=== PATIENT | female | born 1935 | race Caucasian/White ===

== ENCOUNTER 2016-08-10 12:41 | Inpatient (IN) | payer MEDICARE, MEDICAID ==
[2016-08-10 12:41] VITALS: BMI 27.8
[2016-08-10] MEDS ORDERED: Oxycodone/Acetaminophen 5/325 mg Tab PO STA (13:37)
--- NOTE | 2016-08-10 13:37 | C.PDOC ---
History Of Present Illness Patient is a 81 y/o female, whose past medical history includes, CAD, peripheral vascular disease, stent placed in the left leg last year, that presents to the emergency department for evaluation of constant pain to the plantar aspect of right foot since the last week. Pt describes the pain as a burning sensation, and states pain is worse with walking, and better when elevating the leg. Otherwise, denies any swelling, extremity weakness/numbness, chest pain, shortness of breath, fever, chills, or any other associated symptoms at this time. Time Seen by Provider: 08/10/16 13:18 Chief Complaint (Nursing): Lower Extremity Problem/Injury History Per: Patient History/Exam Limitations: no limitations Onset/Duration Of Symptoms: Days (1 week) Current Symptoms Are (Timing): Still Present Recent travel outside of the [place]: No Past Medical History Reviewed: Historical Data, Nursing Documentation, Vital Signs Vital Signs: Last Vital Signs Temp 98.3 F 08/10/16 12:44 Pulse 61 08/10/16 12:44 Resp 18 08/10/16 12:44 BP 160/73 H 08/10/16 12:44 Pulse Ox 97 08/10/16 14:28 - Medical History PMH: Arthritis, Asthma, Gastritis, HTN, Hypercholesterolemia, Osteoporosis, End Stage Renal Disease Denies: Chronic Kidney Disease - [facility] Procedures DESTRUCTION OF ASCENDING COLON, ENDO (01/19/16) DESTRUCTION OF DUODENUM, ENDO (01/19/16) DILATION OF RIGHT POSTERIOR TIBIAL ARTERY, PERC APPROACH (04/18/15) EXCISION OF CECUM, ENDO (06/29/15) EXCISION OF STOMACH, ENDO, DIAGN (06/29/15) EXCISION OF TRANSVERSE COLON, ENDO, DIAGN (06/29/15) INSERTION OF INFUSION DEV INTO SUP VENA CAVA, PERC APPROACH (06/29/15) INTRODUCE OF OTH THROMBOLYTIC INTO PERIPH ART, PERC APPROACH (04/18/15) PLAIN RADIOGRAPHY OF AORTA, BI LE ART USING L OSM CONTRAST (04/18/15) TRANSFUSE NONAUT FROZEN PLASMA IN PERIPH VEIN, PERC (01/19/16) TRANSFUSE NONAUT PLATELETS IN PERIPH VEIN, PERC (01/19/16) TRANSFUSE NONAUT RED BLOOD CELLS IN PERIPH VEIN, PERC (01/19/16) ULTRASONOGRAPHY OF FEMORAL ARTERY (04/18/15) Family History: States: Unknown Family Hx - Social History Hx Tobacco Use: No Hx Alcohol Use: No Hx Substance Use: No - Immunization History Hx Influenza Vaccination: Yes (03/2016) Hx Pneumococcal Vaccination: No Review Of Systems Except As Marked, All Systems Reviewed And Found Negative. Constitutional: Negative for: Fever, Chills Cardiovascular: Negative for: Chest Pain, Palpitations Respiratory: Negative for: Cough, Shortness of Breath Musculoskeletal: Positive for: Foot Pain (right) Neurological: Negative for: Weakness, Numbness, Headache, Dizziness Physical Exam - Physical Exam Appears: Non-toxic, No Acute Distress Skin: Warm, Dry, Other (erythema to right foot) Head: Atraumatic, Normacephalic Eye(s): bilateral: Normal Inspection, EOMI Neck: Normal ROM, Supple Chest: Symmetrical, No Tenderness Cardiovascular: Rhythm Regular, No Murmur Respiratory: Normal Breath Sounds, No Rales, No Rhonchi, No Wheezing Gastrointestinal/Abdominal: Soft, No Tenderness Extremity: Normal ROM, Tenderness (plantar aspect of right foot), No Pedal Edema , No Calf Tenderness, Capillary Refill (6 seconds), No Deformity, No Swelling Pulses: Left Femoral: Normal, Right Femoral: Normal, Left Dorsalis Pedis: Absent , Right Dorsalis Pedis: Absent Neurological/Psych: Oriented x3, Normal Speech, Normal Motor, Normal Sensation ED Course And Treatment - Laboratory Results Result Diagrams: 08/10/16 13:54 08/10/16 14:49 Lab Interpretation: Abnormal (New onset renal insufficiency BUN 50 Cr 2.7.) O2 Sat by Pulse Oximetry: 97 (on RA) Pulse Ox Interpretation: Normal Progress Note: Labs ordered and reviewed. Patient was given Percocet in the ER. On re-eval, pt reports improvement of symptoms. Venous doppler shows audible pulses both dorsalis pedis, left greater than right. Reevaluation Time: 15:41 Reassessment Condition: Improved (after Percocet) - Physician Consult Information Physician Contacted: Ayala Lawrence Disposition - Disposition Disposition: HOSPITALIZED Disposition Time: 15:42 Condition: IMPROVED - POA Present On Arrival: None - Clinical Impression Clinical Impression: Peripheral vascular disease, Acute renal insufficiency - Scribe Statement The provider has reviewed the documentation as recorded by the Devin Villalba Provider Attestation: All medical record entries made by the Devin were at my direction and personally dictated by me. I have reviewed the chart and agree that the record accurately reflects my personal performance of the history, physical exam, medical decision making, and the department course for this patient. I have also personally directed, reviewed, and agree with the discharge instructions and disposition.
[2016-08-10] MEDS ORDERED: Oxycodone/Acetaminophen 5/325 mg Tab ONE (14:02)
[2016-08-10 14:04] LABS: BASO # 0.1 K/uL (0.0-0.2); BASO % 0.9 % (0.0-2.0); EOS % 11.3 % (0.0-4.0); HEMATOCRIT 36.3 % (34.0-47.0); LYMPH # 0.9 K/uL (1.0-4.3); LYMPH % 10.8 % (20.0-40.0); MEAN CORPUSCULAR HEMOGLOBIN 29.4 pg (27.0-31.0); MEAN CORPUSCULAR HGB CONC 32.6 g/dL (33.0-37.0); MEAN PLATELET VOLUME 7.8 fL (7.2-11.7); MONO # 1.2 K/uL (0.0-0.8); MONO % 13.8 % (0.0-10.0); RED CELL DISTRIBUTION WIDTH 16.7 % (11.5-14.5); WHITE BLOOD COUNT 8.5 K/uL (4.8-10.8)
[2016-08-10 15:02] LABS: POTASSIUM 4.6 mmol/L (3.6-5.2)
[2016-08-10 15:04] LABS: BILIRUBIN,TOTAL 0.5 mg/dL (0.2-1.3); TOTAL PROTEIN 7.4 g/dL (6.3-8.3)
[2016-08-10 15:05] LABS: CALCIUM 8.6 mg/dl (8.6-10.4)
--- NOTE | 2016-08-10 16:34 | CP.PCM.HP ---
<Rosio Turner - Last Filed: 08/10/16 17:53> History of Present Illness - History of Present Illness History of Present Illness: Medicine Note for Dr. Lawrence, CC: right leg pain HPI: 81F with PMHx of DM2, hyperlipidemia, PAD, PVD, HTN, anemia and gastritis presents to the ED with right leg pain x 1 week. As per the son, patient has been having right leg pain intermittently for the past year or so, however the past few weeks the pain has become unbearable. The right foot is cool to touch, painful and she feels her right foot pulsating. Patient ambulates with assistance but has unable to do so the last few days due to the pain. Denied fever, chills, headache, chest pain, abdominal pain, n/v/d/c, or urinary symptoms. PMHx: DM2, hyperlipidemia, PAD, PVD, HTN, anemia and gastritis PSHx: right posterior tibial artery balloon angioplasty, left corneal transplant 2014, cardiac stents Meds: As per MAR All: unknown antibiotic SHx: smoked for 10 years, quit 40 years ago, denies ETOH use, denies illicit drug use FHx: PMD: Dr. Nicole Present on Admission - Present on Admission Any Indicators Present on Admission: No Past Patient History - Infectious Disease Hx of Infectious Diseases: None - Tetanus Immunizations Tetanus Immunization: Unknown - Past Medical History & Family History Past Medical History?: Yes - Past Social History Smoking Status: Never Smoked - CARDIAC Hx Hypercholesterolemia: Yes Hx Hypertension: Yes - PULMONARY Hx Asthma: Yes - NEUROLOGICAL Hx Neurological Disorder: No Other/Comment: according to son, pt is gorgetful, has to be reminded constantly - HEENT Hx HEENT Problems: Yes Hx Blind: Yes Other/Comment: [employer]. 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 - RENAL Hx Chronic Kidney Disease: No - ENDOCRINE/METABOLIC Hx Diabetes Mellitus Type 2: Yes - HEMATOLOGICAL/ONCOLOGICAL Hx Blood Disorders: Yes Hx Blood Transfusions: Yes Hx Blood Transfusion Reaction: No - INTEGUMENTARY Hx Dermatological Problems: No - MUSCULOSKELETAL/RHEUMATOLOGICAL Hx Arthritis: Yes Hx Osteoporosis: Yes - GASTROINTESTINAL Hx Gastritis: Yes - GENITOURINARY/GYNECOLOGICAL Hx Genitourinary Disorders: No Other/Comment: s/p hysterectomy as per son done >20 yrs ago - PSYCHIATRIC Hx Substance Use: No - SURGICAL HISTORY Hx Surgeries: Yes Hx Eye Surgery: Yes (Left corneal transplant) Hx Femoral-Popliteal Bypass Graft: Yes Other/Comment: [employer] 02/05/15 - ANESTHESIA Hx Anesthesia: Yes Hx Anesthesia Reactions: No Meds Allergies/Adverse Reactions: Allergies Allergy/AdvReac Type Severity Reaction Status Date / Time unknown abx AdvReac Mild RASH Uncoded 07/01/16 08:11 Physical Exam - Constitutional Appears: No Acute Distress - Head Exam Head Exam: NORMAL INSPECTION, NORMOCEPHALIC - Respiratory Exam Respiratory Exam: Clear to Auscultation Bilateral, NORMAL BREATHING PATTERN. absent: Wheezes - Cardiovascular Exam Cardiovascular Exam: REGULAR RHYTHM, RRR, +S1, +S2 - GI/Abdominal Exam GI & Abdominal Exam: Normal Bowel Sounds, Soft. absent: Distended, Tenderness - Extremities Exam Additional comments: right foot, cool to touch, PVD, varicose veins noted, red swollen, painful to touch, DP felt but very faintly left foot +2 DP, warm to touch - Neurological Exam Neurological exam: Alert, Oriented x3 - Skin Skin Exam: Dry, Intact, Normal Color, Warm Results - Vital Signs Recent Vital Signs: Last Vital Signs Temp 97.7 F 08/10/16 16:22 Pulse 98 H 08/10/16 16:22 Resp 18 08/10/16 16:22 BP 138/66 08/10/16 16:22 Pulse Ox 97 08/10/16 16:22 - Labs Result Diagrams: 08/10/16 13:54 08/10/16 14:49 Assessment & Plan - Assessment and Plan (Free Text) Assessment: 81F with PMHx of DM2, hyperlipidemia, PAD, PVD, HTN, anemia and gastritis presents to the ED with right leg pain x 1 week. Plan: PAD * Right foot is cool to touch, DP poorly felt, audible on doppler, Femoral pulses +2 Bilaterally * Cardiology consulted: Dr. Piña- help appreciated PVD * Restarted Cilostazol 100mg PO TID CAD * DARA placed 2015 * ASA 81mg PO daily * Cardiology recommending ASA 81 and cilastazol only, with notation that GI bleed (01/2016) started soon after patient initiated on plavix. Acute Renal Failure, CKD Stage 3 * Hx of CKD Stage 3 * Baseline creatine 1.6/1.7 with GFR 31 * On admission BUN/ CRE: 850/2.7, GFR 17 * Nephrology consulted, Dr. Alberto- help appreciated * NS @75 cc/hr started * Cross inserted * Strict Is & Os * F/U Renal US HTN * Resumed home medications: Hydralazine 100mg PO TID, Cozaar 50mg PO daily, Held Nifedipine 30mg ER PO daily and held Metoprolol 50mg PO BID * Monitor Hx DM * HgA1C 6.5 10/2015 * F/U HgA1C Hx HLD * F/U lipid panel Prophylactic Measures * GI PPX: Protonix 40mg PO daily * DVT PPX: Contraindications to SCDs due to PAD * Heart Healthy Diet * PT Rell Lawrence, Johnny VEGA, PGY-1 <Ayala Lawrence V - Last Filed: 08/10/16 21:49> Results - Vital Signs Recent Vital Signs: Last Vital Signs Temp 97.9 F 08/10/16 17:19 Pulse 58 L 08/10/16 17:19 Resp 20 08/10/16 17:19 BP 164/70 H 08/10/16 17:19 Pulse Ox 96 08/10/16 17:19 - Labs Result Diagrams: 08/10/16 13:54 08/10/16 14:49 Attending/Attestation - Attestation I have personally seen and examined this patient.: Yes I have fully participated in the care of the patient.: Yes I have reviewed all pertinent clinical information: Yes Notes (Text): Patient seen, examined and case discussed with day-time resident. Patient's family members at bedside. Patient had received one dose of Percocet prior to my arrival, but patient is arousable and speaks softly. Per family, patient was brought in the hospital because of bilateral leg pains. Patient has known history of peripheral arterial disease of the lower extremity. Per discussion with ED doc, difficult to palpate DP pulses, but present with doppler. Prior AVR/SEG (10/22/15), notes decreased moderately perfusion of the right and left lower extremities. Patient noted to have acute on chronic renal insufficiency (GFR:20-30s); patient clinically appears dry and previously on diuretics. Note: family history not applicable Patient seen with resident, patient detect sensation bilateral lower feet, unable palpate discrete DP pulses, associated chronic skin changes, and poor nail hygiene Assessment/Plan 1. Peripheral vascular disease * Ordered for arterial dopplers * Continue ASA, Cilostazol 100mg PO TID * Consult: Dr. Piña (cardiology) on board * prior balloon angioplasty in 2016 noted per review of EMR 2. History of CAD * ASA 81mg PO daily * GI bleeding associated with prior Plavix use per EMR 3. Acute Renal Failure, CKD Stage 3 * Hx of CKD Stage 3 * Baseline creatine 1.6/1.7 with GFR 31 * On admission BUN/ CRE: 850/2.7, GFR 17 * Nephrology consulted, Dr. Alberto- help appreciated * NS @75 cc/hr started * Cross inserted * Strict Is & Os * F/U Renal US 4. Hypertension * Resumed home medications: Hydralazine 100mg PO TID, hold Cozaar 50mg PO daily , Held Nifedipine 30mg ER PO daily and held Metoprolol 50mg PO BID * Monitor 5. Diabetes * No home meds for DM * RISS * Accuchecks QAC and HS * prior a1c: 6.5 controlled 6. Hyperlipidemia * Crestor 5mg PO qhs * Lipid panel in AM 7. Prophylactic Measures * GI PPX: Protonix 40mg PO daily * DVT PPX: Contraindications to SCDs due to PAD * Heparin 5000 units subq 12hours for DVT ppx * Heart Healthy Diet * PT Eval
[2016-08-10 17:57] VITALS: RESP 20
[2016-08-10] MEDS: Cilostazol 100 mg Tab UD PO SCH (19:00)
[2016-08-10 21:43] LABS: CREATININE, RANDOM URINE 37.5 mg/dL; RBC URINE 2 /hpf (0-3); URINE BACTERIA MOD (<OCC); URINE BILIRUBIN NEGATIVE (NEGATIVE); URINE BLOOD NEGATIVE (NEGATIVE); URINE COLOR Yellow (YELLOW); URINE GLUCOSE (UA) NORMAL (Normal); URINE KETONE NEGATIVE (NEGATIVE); URINE LEUKOCYTE ESTERASE 3+ Leu/uL (Negative); URINE PROTEIN 1+ mg/dL (NEGATIVE); URINE UROBILINOGEN NORMAL mg/dL (0.2-1.0); WBC CLUMPS FEW /hpf; WBC URINE 117 /hpf (0-5)
--- NOTE | 2016-08-10 21:49 | CP.PCM.CON ---
History of Present Illness - History of Present Illness History of Present Illness: CC: right leg pain HPI: 81F with PMHx of DM2, hyperlipidemia, PAD, PVD, HTN, anemia and gastritis presents to the ED with right leg pain x 1 week. As per the son, patient has been having right leg pain intermittently for the past year or so, however the past few weeks the pain has become unbearable. The right foot is cool to touch, painful and she feels her right foot pulsating. Patient ambulates with assistance but has unable to do so the last few days due to the pain. Denied fever, chills, headache, chest pain, abdominal pain, n/v/d/c, or urinary symptoms. PMHx: DM2, hyperlipidemia, PAD, PVD, HTN, anemia and gastritis PSHx: right posterior tibial artery balloon angioplasty, left corneal transplant 2014, cardiac stents Meds: As per [facility] All: unknown antibiotic SHx: smoked for 10 years, quit 40 years ago, denies ETOH use, denies illicit drug use FHx: PMD: Dr. Nicole Present on Admission - Present on Admission Any Indicators Present on Admission: No Physical Exam - Constitutional Appears: No Acute Distress - Head Exam Head Exam: NORMAL INSPECTION, NORMOCEPHALIC - Respiratory Exam Respiratory Exam: Clear to Auscultation Bilateral, NORMAL BREATHING PATTERN. absent: Wheezes - Cardiovascular Exam Cardiovascular Exam: REGULAR RHYTHM, RRR, +S1, +S2 - GI/Abdominal Exam GI & Abdominal Exam: Normal Bowel Sounds, Soft. absent: Distended, Tenderness - Extremities Exam Additional comments: right foot, cool to touch, PVD, varicose veins noted, red swollen, painful to touch, DP felt but very faintly left foot +2 DP, warm to touch - Neurological Exam Neurological exam: Alert, Oriented x3 - Skin Skin Exam: Dry, Intact, Normal Color, Warm Past Patient History - Infectious Disease Hx of Infectious Diseases: None - Tetanus Immunizations Tetanus Immunization: Unknown - Past Medical History & Family History Past Medical History?: Yes - Past Social History Smoking Status: Former Smoker - CARDIAC Hx Hypercholesterolemia: Yes Hx Hypertension: Yes - PULMONARY Hx Respiratory Disorders: No - NEUROLOGICAL Hx Neurological Disorder: No - HEENT Hx HEENT Problems: Yes Hx Blind: Yes Other/Comment: [employer]. 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 - RENAL Hx Chronic Kidney Disease: No - ENDOCRINE/METABOLIC Hx Diabetes Mellitus Type 2: Yes - HEMATOLOGICAL/ONCOLOGICAL Hx Blood Disorders: Yes Hx Blood Transfusions: Yes Hx Blood Transfusion Reaction: No - INTEGUMENTARY Hx Dermatological Problems: No - MUSCULOSKELETAL/RHEUMATOLOGICAL Hx Arthritis: Yes Hx Falls: No Hx Osteoporosis: Yes - GASTROINTESTINAL Hx Gastritis: Yes - GENITOURINARY/GYNECOLOGICAL Hx Genitourinary Disorders: No Other/Comment: s/p hysterectomy as per son done >20 yrs ago - PSYCHIATRIC Hx Substance Use: No - SURGICAL HISTORY Hx Surgeries: Yes Hx Coronary Stent: Yes (2015) Hx Eye Surgery: Yes (Left corneal transplant) Hx Femoral-Popliteal Bypass Graft: Yes (2014) Other/Comment: [employer] 02/05/15 - ANESTHESIA Hx Anesthesia: Yes Hx Anesthesia Reactions: No Meds Allergies/Adverse Reactions: Allergies Allergy/AdvReac Type Severity Reaction Status Date / Time unknown abx AdvReac Mild RASH Uncoded 07/01/16 08:11 - Medications Medications: Current Medications Aspirin (Aspirin Chewable) 81 mg PO DAILY [facility] Cilostazol (Pletal) 100 mg PO BID [facility] Last Admin: 08/10/16 19:00 Dose: 100 mg Furosemide (Lasix) 20 mg PO BID [facility] Last Admin: 08/10/16 20:14 Dose: Not Given Hydralazine HCl (Apresoline) 100 mg PO TID [facility] Last Admin: 08/10/16 19:00 Dose: 100 mg Sodium Chloride (Sodium Chloride 0.9%) 1,000 mls @ 75 mls/hr IV .[id number] [facility] Losartan Potassium (Cozaar) 50 mg PO DAILY [facility] Pantoprazole Sodium (Protonix Ec Tab) 40 mg PO DAILY [facility] Results - Vital Signs Recent Vital Signs: Last Vital Signs Temp 97.9 F 08/10/16 17:19 Pulse 58 L 08/10/16 17:19 Resp 20 08/10/16 17:19 BP 164/70 H 08/10/16 17:19 Pulse Ox 96 08/10/16 17:19 - Labs Result Diagrams: 08/11/16 06:15 08/11/16 06:15 Labs: Laboratory Results - last 24 hr 08/10/16 08/10/16 21:31 21:31 Urine Color Yellow Urine Clarity Hazy Urine pH 5.0 Ur Specific [place] 1.006 Urine Protein 1+ H Urine Glucose (UA) Normal Urine Ketones Negative Urine Blood Negative Urine Nitrate Negative Urine Bilirubin Negative Urine Urobilinogen Normal Ur Leukocyte Esterase 3+ H Urine WBC (Auto) 117 H Urine RBC (Auto) 2 Urine WBC Clumps (Auto) Few H Urine Bacteria Mod H U Random Total Protein Cancelled Ur Random Sodium 44 Assessment & Plan - Assessment and Plan (Free Text) Assessment: 81F with PMHx of DM2, hyperlipidemia, PAD, PVD, HTN, anemia and gastritis presents to the ED with right leg pain x 1 week. Plan: PAD * Right foot is cool to touch, DP poorly felt, audible on doppler, Femoral pulses +2 Bilaterally * Vascular Consult: Dr. Victor PVD * Restarted Cilostazol 100mg PO TID CAD * DARA placed 2015 * ASA 81mg PO daily * Cardiology recommending ASA 81 and cilastazol only, with notation that GI bleed (01/2016) started soon after patient initiated on plavix. Acute Renal Failure, CKD Stage 3 * Hx of CKD Stage 3 * Baseline creatine 1.6/1.7 with GFR 31 * On admission BUN/ CRE: 850/2.7, GFR 17 * Nephrology consulted, Dr. Alberto- help appreciated * NS @75 cc/hr started * Cross inserted * Strict Is & Os * F/U Renal US HTN * Resumed home medications: Hydralazine 100mg PO TID, Cozaar 50mg PO daily, Held Nifedipine 30mg ER PO daily and held Metoprolol 50mg PO BID * Monitor Hx DM * HgA1C 6.5 10/2015 * F/U HgA1C Hx HLD * F/U lipid panel Prophylactic Measures * GI PPX: Protonix 40mg PO daily * DVT PPX: Contraindications to SCDs due to PAD * Heart Healthy Diet * PT Eval
[2016-08-10] MEDS: Sodium Chloride 0.9% 1,000 ML IV SCH ×2 (23:15→23:16)
--- NOTE | 2016-08-11 00:12 | CP.PCM.CON ---
History of Present Illness - History of Present Illness History of Present Illness: Vascular Surgery - Dr. Victor 81F w/ hx of DM, HTN, HL, PVD, PAD s/p balloon angio to the R PT in 2016 w/ Dr. Piña, who presented to ED last night w/ RLE pain x1 week. Per documentation pt has been experiencing this pain for the past year intermittently but the pain became much worse over the past week. At time of exam pt states that her pain is much better now. She received percocet 1x in the ED last night. Pt denies any f/c, sob/cp, n/v, dysuria/hematuria. PMH: DM, HL, PAD, PVD, HTN, Anemia, Gastritis PSH: R PT balloon angio (2016), L corneal transplant, cardiac stents All: unknown abx Former smoker Review of Systems - Review of Systems All systems: reviewed and no additional remarkable complaints except (as per HPI ) Past Patient History - Infectious Disease Hx of Infectious Diseases: None - Tetanus Immunizations Tetanus Immunization: Unknown - Past Medical History & Family History Past Medical History?: Yes - Past Social History Smoking Status: Former Smoker - CARDIAC Hx Hypercholesterolemia: Yes Hx Hypertension: Yes - PULMONARY Hx Respiratory Disorders: No - NEUROLOGICAL Hx Neurological Disorder: No - HEENT Hx HEENT Problems: Yes Hx Blind: Yes Other/Comment: [employer]. 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 - RENAL Hx Chronic Kidney Disease: No - ENDOCRINE/METABOLIC Hx Diabetes Mellitus Type 2: Yes - HEMATOLOGICAL/ONCOLOGICAL Hx Blood Disorders: Yes Hx Blood Transfusions: Yes Hx Blood Transfusion Reaction: No - INTEGUMENTARY Hx Dermatological Problems: No - MUSCULOSKELETAL/RHEUMATOLOGICAL Hx Arthritis: Yes Hx Falls: No Hx Osteoporosis: Yes - GASTROINTESTINAL Hx Gastritis: Yes - GENITOURINARY/GYNECOLOGICAL Hx Genitourinary Disorders: No Other/Comment: s/p hysterectomy as per son done >20 yrs ago - PSYCHIATRIC Hx Substance Use: No - SURGICAL HISTORY Hx Surgeries: Yes Hx Coronary Stent: Yes (2015) Hx Eye Surgery: Yes (Left corneal transplant) Hx Femoral-Popliteal Bypass Graft: Yes (2014) Other/Comment: [employer] 02/05/15 - ANESTHESIA Hx Anesthesia: Yes Hx Anesthesia Reactions: No Meds Allergies/Adverse Reactions: Allergies Allergy/AdvReac Type Severity Reaction Status Date / Time unknown abx AdvReac Mild RASH Uncoded 07/01/16 08:11 - Medications Medications: Current Medications Aspirin (Aspirin Chewable) 81 mg PO DAILY [facility] Cilostazol (Pletal) 100 mg PO BID [facility] Last Admin: 08/10/16 19:00 Dose: 100 mg Furosemide (Lasix) 20 mg PO BID [facility] Last Admin: 08/10/16 20:14 Dose: Not Given Heparin Sodium (Porcine) (Heparin) 5,000 units SC Q12 [facility] Last Admin: 08/10/16 23:00 Dose: 5,000 units Hydralazine HCl (Apresoline) 100 mg PO TID [facility] Last Admin: 08/10/16 19:00 Dose: 100 mg Sodium Chloride (Sodium Chloride 0.9%) 1,000 mls @ 75 mls/hr IV .[id number] [facility] Last Admin: 08/10/16 23:16 Dose: Not Given Losartan Potassium (Cozaar) 50 mg PO DAILY [facility] Pantoprazole Sodium (Protonix Ec Tab) 40 mg PO DAILY [facility] Physical Exam - Constitutional Appears: No Acute Distress - Head Exam Head Exam: ATRAUMATIC, NORMAL INSPECTION, NORMOCEPHALIC - Eye Exam Eye Exam: Normal appearance - Respiratory Exam Respiratory Exam: NORMAL BREATHING PATTERN. absent: Respiratory Distress - Extremities Exam Extremities exam: Negative for: pedal edema, tenderness Additional comments: R PT faint dopplerable, unable to get DP L PT and DP dopplerable feet warm b/l - Neurological Exam Neurological exam: Alert, Oriented x3 - Psychiatric Exam Psychiatric exam: Normal Affect, Normal Mood - Skin Skin Exam: Dry, Intact Results - Vital Signs Recent Vital Signs: Last Vital Signs Temp 97.9 F 08/10/16 17:19 Pulse 58 L 08/10/16 17:19 Resp 20 08/10/16 17:19 BP 164/70 H 08/10/16 17:19 Pulse Ox 96 08/10/16 17:19 - Labs Result Diagrams: 08/10/16 13:54 08/10/16 14:49 Labs: Laboratory Results - last 24 hr 08/10/16 08/10/16 08/10/16 21:31 21:31 21:31 Urine Color Yellow Urine Clarity Hazy Urine pH 5.0 Ur Specific [place] 1.006 Urine Protein 1+ H Urine Glucose (UA) Normal Urine Ketones Negative Urine Blood Negative Urine Nitrate Negative Urine Bilirubin Negative Urine Urobilinogen Normal Ur Leukocyte Esterase 3+ H Urine WBC (Auto) 117 H Urine RBC (Auto) 2 Urine WBC Clumps (Auto) Few H Urine Bacteria Mod H Ur Random Creatinine 37.5 U Random Total Protein Cancelled Ur Random Sodium 44 Ur Random Urea Nitrogn Cancelled Urine Microalbumin 43.5 H 08/10/16 21:46 Urine Color Urine Clarity Urine pH Ur Specific [place] Urine Protein Urine Glucose (UA) Urine Ketones Urine Blood Urine Nitrate Urine Bilirubin Urine Urobilinogen Ur Leukocyte Esterase Urine WBC (Auto) Urine RBC (Auto) Urine WBC Clumps (Auto) Urine Bacteria Ur Random Creatinine U Random Total Protein 22.0 H Ur Random Sodium Ur Random Urea Nitrogn 196 Urine Microalbumin Assessment & Plan - Assessment and Plan (Free Text) Assessment: 81 yo F w/ DM, PAD s/p balloon angio of R PT in 2016 who presents w/ RLE pain -IVF hydration, monitor urine output -F/U arterial duplex -CTA when renal function improved DW Dr Kayleigh Taylor PGY2
[2016-08-11 06:21] LABS: BASO # 0.1 K/uL (0.0-0.2); BASO % 0.7 % (0.0-2.0); EOS # 0.9 K/uL (0.0-0.7); EOS % 10.6 % (0.0-4.0); LYMPH # 1.2 K/uL (1.0-4.3); LYMPH % 13.6 % (20.0-40.0); MEAN CELL VOLUME 88.2 fL (81.0-99.0); MEAN CORPUSCULAR HEMOGLOBIN 29.6 pg (27.0-31.0); MEAN CORPUSCULAR HGB CONC 33.6 g/dL (33.0-37.0); MEAN PLATELET VOLUME 7.8 fL (7.2-11.7); MONO # 1.2 K/uL (0.0-0.8); MONO % 13.9 % (0.0-10.0); RED CELL DISTRIBUTION WIDTH 16.6 % (11.5-14.5); WHITE BLOOD COUNT 8.7 K/uL (4.8-10.8)
[2016-08-11 06:32] LABS: POTASSIUM 4.4 mmol/L (3.6-5.2)
[2016-08-11 06:34] LABS: ALB/GLOB RATIO 0.9 (1.0-2.1); BILIRUBIN,TOTAL 0.5 mg/dL (0.2-1.3); TOTAL PROTEIN 6.9 g/dL (6.3-8.3)
[2016-08-11 06:35] LABS: CALCIUM 8.6 mg/dl (8.6-10.4); MAGNESIUM 2.3 mg/dL (1.6-2.3); PHOSPHOROUS 4.6 mg/dL (2.5-4.5)
[2016-08-11] MEDS: Sodium Chloride 0.9% 1,000 ML IV SCH ×3 (08:14→20:50)
[2016-08-11] MEDS: Pantoprazole 40 mg EC Tab PO SCH (09:48)
[2016-08-11] MEDS: Cilostazol 100 mg Tab UD PO SCH ×2 (09:48→18:12)
[2016-08-11] MEDS ORDERED: oxyCODONE 5 mg Immediate Release Tab PO PRN (12:22)
--- NOTE | 2016-08-11 13:24 | US ---
Renal ultrasound History: Acute renal failure. Chronic kidney disease. Comparison: None available. Technique: Real-time sonography was performed through the kidneys. Findings: Right kidney: Diminutive. 8.2 x 2.1 x 3.6 centimeters. Increased echogenicity of the renal parenchymal cortex suggestive for medical renal disease. Fullness of the right renal collecting system versus mild hydronephrosis. Small amount of fluid adjacent to the right kidney. Left kidney: 8.2 x 4.1 x 4.2 centimeters. Diminutive. Increased echogenicity of the renal parenchymal cortex suggestive for medical renal disease. Fullness of the left renal collecting system versus mild hydronephrosis. Visualized aorta is preserved. Cross catheter in the urinary bladder. Impression: Increased echogenicity of the bilateral renal cortices suggestive for medical renal disease. Diminutive atrophic appearance of the bilateral kidneys. Mild fullness versus mild hydronephrosis of the bilateral renal collecting systems. Small amount of fluid adjacent to right kidney. Cross catheter in the urinary bladder.
--- NOTE | 2016-08-11 14:26 | CP.PCM.PN ---
<Ирина Keys DO - Last Filed: 08/11/16 14:39> Subjective - Date & Time of Evaluation Date of Evaluation: 08/11/16 Time of Evaluation: 08:15 - Subjective Subjective: PGY1 progress note for Dr. Lawrence Patient seen and examined. Patient's son at bedside. Patient was requesting pain medication this morning and son stated he did not understand why his mother did not receive medicine since the ER. It was explained to the son that the medication given in the ER was very strong and made patient very drowsy. It was also explained to the patient and her son that we will be giving her pain medication but we need to monitor her for drowsiness. Objective - Vital Signs/Intake and Output Vital Signs (last 24 hours): Temp Pulse Resp BP Pulse Ox 98.3 F 83 20 147/64 93 L 08/11/16 08:49 08/11/16 08:49 08/11/16 08:49 08/11/16 08:49 08/11/16 08:49 - Medications Medications: Current Medications Acetaminophen (Tylenol 325mg Tab) 650 mg PO Q6 PRN PRN Reason: Pain, Mild (1-3) Aspirin (Aspirin Chewable) 81 mg PO DAILY [facility] Last Admin: 08/11/16 09:49 Dose: 81 mg Cilostazol (Pletal) 100 mg PO BID [facility] Last Admin: 08/11/16 09:48 Dose: 100 mg Furosemide (Lasix) 20 mg PO BID [facility] Last Admin: 08/10/16 20:14 Dose: Not Given Heparin Sodium (Porcine) (Heparin) 5,000 units SC Q12 [facility] Last Admin: 08/11/16 09:49 Dose: 5,000 units Hydralazine HCl (Apresoline) 100 mg PO TID [facility] Last Admin: 08/11/16 09:49 Dose: 100 mg Sodium Chloride (Sodium Chloride 0.9%) 1,000 mls @ 75 mls/hr IV .[id number] [facility] Last Admin: 08/11/16 08:14 Dose: Not Given Losartan Potassium (Cozaar) 50 mg PO DAILY [facility] Last Admin: 08/11/16 09:49 Dose: 50 mg Oxycodone HCl (Oxycodone Immediate Release Tab) 5 mg PO Q6 PRN PRN Reason: Pain, moderate (4-7) Pantoprazole Sodium (Protonix Ec Tab) 40 mg PO DAILY [facility] Last Admin: 08/11/16 09:48 Dose: 40 mg - Labs Labs: 08/11/16 06:15 08/11/16 06:15 - Constitutional Appears: Non-toxic, No Acute Distress - Head Exam Head Exam: ATRAUMATIC, NORMOCEPHALIC - Eye Exam Eye Exam: EOMI - ENT Exam ENT Exam: Mucous Membranes Moist - Respiratory Exam Respiratory Exam: Clear to Ausculation Bilateral, NORMAL BREATHING PATTERN - Cardiovascular Exam Cardiovascular Exam: +S1, +S2 - GI/Abdominal Exam GI & Abdominal Exam: Soft, Normal Bowel Sounds. absent: Tenderness - Extremities Exam Additional comments: right foot with doppler signal PT pulse right jose and bottom right foot painful on palpation - Neurological Exam Neurological Exam: Alert, Awake - Psychiatric Exam Psychiatric exam: Normal Affect - Skin Skin Exam: Warm Assessment and Plan - Assessment and Plan (Free Text) Assessment: PAD * Right foot * oxycodone 5mg q6h prn for moderate pain, tylenol 650mg q6prn mild pain * Cardiology consulted: Dr. Piña- bia appreciated * Vascular surgery, Dr. Victor, consulted- recommend continued IV hydration and CTA when renal function improved * ordered arterial duplex, venous duplex PVD * Restarted Cilostazol 100mg PO TID CAD * DARA placed 2015 * ASA 81mg PO daily * Cardiology recommending ASA 81 and cilastazol only, with notation that GI bleed (01/2016) started soon after patient initiated on plavix. Acute Renal Failure, CKD Stage 3 * Hx of CKD Stage 3 * Baseline creatine 1.6/1.7 with GFR 31 * BUN/ CRE: 48/2.7, GFR 17 * Nephrology consulted, Dr. Alberto- bia appreciated- renal artery duplex ordered for tomorrow, patient to be NPO for study tomorrow AM * NS @75 cc/hr started * Cross inserted * Strict Is & Os * Renal US- increased echogenicitiy of bilateral renal cortices suggestive for medical renal disease. diminutive atrophic appearance of bilateral kidneys. mild fullness vs hydronephrosis bilateral renal collective systems. small amount of fluid adjacent to right kidney HTN * Resumed home medications: Hydralazine 100mg PO TID, Cozaar 50mg PO daily, Hold Nifedipine 30mg ER PO daily and held Metoprolol 50mg PO BID * Monitor Hx DM * HgA1C 6.5 10/2015 * HgA1C 6.5 Hx HLD * lipid panel- triglycerides 189, cholesterol 198, LDL 118, HDL 29 Prophylactic Measures * GI PPX: Protonix 40mg PO daily * DVT PPX: Contraindications to SCDs due to PAD * Heart Healthy Diet * PT Eval * colace 100mg BID <Ayala Lawrence V - Last Filed: 08/11/16 21:24> Objective - Vital Signs/Intake and Output Vital Signs (last 24 hours): Temp Pulse Resp BP Pulse Ox 98.4 F 78 20 121/65 95 08/11/16 15:15 08/11/16 15:15 08/11/16 15:15 08/11/16 15:15 08/11/16 15:15 Intake and Output: 08/11/16 08/12/16 18:59 06:59 Intake Total 720 Output Total 375 Balance 345 - Medications Medications: Current Medications Acetaminophen (Tylenol 325mg Tab) 650 mg PO Q6 PRN PRN Reason: Pain, Mild (1-3) Acetylcysteine (Acetylcysteine 20%) 6 ml PO Q12H [facility] Stop: 08/13/16 08:31 Aspirin (Aspirin Chewable) 81 mg PO DAILY [facility] Last Admin: 08/11/16 09:49 Dose: 81 mg Cilostazol (Pletal) 100 mg PO BID [facility] Last Admin: 08/11/16 18:12 Dose: 100 mg Docusate Sodium (Colace) 100 mg PO BID [facility] Last Admin: 08/11/16 18:11 Dose: 100 mg Furosemide (Lasix) 20 mg PO BID [facility] Last Admin: 08/10/16 20:14 Dose: Not Given Heparin Sodium (Porcine) (Heparin) 5,000 units SC Q12 [facility] Last Admin: 08/11/16 09:49 Dose: 5,000 units Hydralazine HCl (Apresoline) 100 mg PO TID [facility] Last Admin: 08/11/16 18:11 Dose: 100 mg Sodium Chloride (Sodium Chloride 0.9%) 1,000 mls @ 75 mls/hr IV .[id number] [facility] Last Admin: 08/11/16 14:55 Dose: 75 mls/hr Losartan Potassium (Cozaar) 50 mg PO DAILY [facility] Last Admin: 08/11/16 09:49 Dose: 50 mg Oxycodone HCl (Oxycodone Immediate Release Tab) 5 mg PO Q6 PRN PRN Reason: Pain, moderate (4-7) Last Admin: 08/11/16 14:53 Dose: 5 mg Pantoprazole Sodium (Protonix Ec Tab) 40 mg PO DAILY [facility] Last Admin: 08/11/16 09:48 Dose: 40 mg - Labs Labs: 08/11/16 06:15 08/11/16 06:15 Attending/Attestation - Attestation I have personally seen and examined this patient.: Yes I have fully participated in the care of the patient.: Yes I have reviewed all pertinent clinical information, including history, physical exam and plan: Yes Notes (Text): Patient seen, examined and case discussed with day-time resident. Patient seen with family present at bedside. Discussed extensively with patient and family at bedside, that the pain medication is very strong for the patient had caused to be very drowsy in the emergency room and will cover the pain coming from the peripheral vascular disease but will not be the solution for her leg pain. Patient is currently undergoing to to evaluate severity of peripheral vascular disease. Vascular surgery (Dr. Victor) is on board-->discussed case with him this morning, recommended for dopplers and if improvement in kidney function, possible CT Nephrology (Dr. Martinez) on board for patient's acute renal failure, undergoing workup, to complete renal artery duplex tomorrow. Patient is currently on IV fluids. Assessment/Plan 1. Peripheral vascular disease * Continue ASA, Cilostazol 100mg PO TID * Consult: Dr. Piña (cardiology) on board * Consult: Dr. Victor (vascular surgery) on board * prior balloon angioplasty in 2016 noted per review of EMR * Oxycodone 5mg PO Q 6hour PRN moderate pain * Pending arterial and venous dopplers 2. History of CAD * ASA 81mg PO daily * GI bleeding associated with prior Plavix use per EMR 3. Acute Renal Failure, CKD Stage 3 * Nephrology consulted, Dr. Alberto- help appreciated * Hx of CKD Stage 3 * Baseline creatine 1.6/1.7 with GFR 31 * On admission BUN/ CRE: 850/2.7, GFR 17 * NS @75 cc/hr started * Cross present * Strict Is & Os * Renal US (08/11/16): increased echogenicity of the bilateral renal cortices suggestive for medical renal disease. Diminutive atrophic appearance of the bilateral kidneys. Mild Fullness versus mild hydronephrosis of the bilateral renal collecting systems. Small ammount of fluid adjacent to the right kidney. Cross catheter in the urinary bladder. * Will be NPO for Renal arterial duplex * Elevated microalbumin, pyuria noted on UA 4. Hypertension * Resumed home medications: Hydralazine 100mg PO TID, Cozaar 50mg PO daily, Held Nifedipine 30mg ER PO daily and held Metoprolol 50mg PO BID * Monitor vital signs 5. Diabetes * No home meds for DM * RISS * Accuchecks QAC and HS * prior a1c: 6.5 controlled * Crestor 5mg PO qhs * Cozaar 50mg PO daily, * T, Chol: 198, LDL: 118, HDL; 29 6. Hyperlipidemia * Crestor 5mg PO qhs * T, Chol: 198, LDL: 118, HDL; 29 7. Prophylactic Measures * GI PPX: Protonix 40mg PO daily * DVT PPX: Contraindications to SCDs due to PAD * Heparin 5000 units subq 12hours for DVT ppx * Heart Healthy Diet * PT Eval
[2016-08-11] MEDS: oxyCODONE 5 mg Immediate Release Tab PO PRN (14:53)
--- NOTE | 2016-08-11 21:05 | CP.PCM.PN ---
Subjective - Date & Time of Evaluation Date of Evaluation: 08/11/16 Time of Evaluation: 15:00 - Subjective Subjective: Patient seen and evaluated Patient states pain is better with pain meds Physical Exam - Constitutional Appears: No Acute Distress - Head Exam Head Exam: NORMAL INSPECTION, NORMOCEPHALIC - Respiratory Exam Respiratory Exam: Clear to Auscultation Bilateral, NORMAL BREATHING PATTERN. absent: Wheezes - Cardiovascular Exam Cardiovascular Exam: REGULAR RHYTHM, RRR, +S1, +S2 - GI/Abdominal Exam GI & Abdominal Exam: Normal Bowel Sounds, Soft. absent: Distended, Tenderness - Extremities Exam Additional comments: right foot, cool to touch, PVD, varicose veins noted, red swollen, painful to touch, DP felt but very faintly left foot +2 DP, warm to touch - Neurological Exam Neurological exam: Alert, Oriented x3 - Skin Skin Exam: Dry, Intact, Normal Color, Warm Objective - Vital Signs/Intake and Output Vital Signs (last 24 hours): Temp Pulse Resp BP Pulse Ox 98.4 F 78 20 121/65 95 08/11/16 15:15 08/11/16 15:15 08/11/16 15:15 08/11/16 15:15 08/11/16 15:15 Intake and Output: 08/11/16 08/12/16 18:59 06:59 Intake Total 720 Output Total 375 Balance 345 - Medications Medications: Current Medications Acetaminophen (Tylenol 325mg Tab) 650 mg PO Q6 PRN PRN Reason: Pain, Mild (1-3) Acetylcysteine (Acetylcysteine 20%) 6 ml PO Q12H [facility] Stop: 08/13/16 08:31 Aspirin (Aspirin Chewable) 81 mg PO DAILY [facility] Last Admin: 08/11/16 09:49 Dose: 81 mg Cilostazol (Pletal) 100 mg PO BID [facility] Last Admin: 08/11/16 18:12 Dose: 100 mg Docusate Sodium (Colace) 100 mg PO BID [facility] Last Admin: 08/11/16 18:11 Dose: 100 mg Furosemide (Lasix) 20 mg PO BID [facility] Last Admin: 08/10/16 20:14 Dose: Not Given Heparin Sodium (Porcine) (Heparin) 5,000 units SC Q12 [facility] Last Admin: 08/11/16 09:49 Dose: 5,000 units Hydralazine HCl (Apresoline) 100 mg PO TID [facility] Last Admin: 08/11/16 18:11 Dose: 100 mg Sodium Chloride (Sodium Chloride 0.9%) 1,000 mls @ 75 mls/hr IV .[id number] [facility] Last Admin: 08/11/16 14:55 Dose: 75 mls/hr Losartan Potassium (Cozaar) 50 mg PO DAILY [facility] Last Admin: 08/11/16 09:49 Dose: 50 mg Oxycodone HCl (Oxycodone Immediate Release Tab) 5 mg PO Q6 PRN PRN Reason: Pain, moderate (4-7) Last Admin: 08/11/16 14:53 Dose: 5 mg Pantoprazole Sodium (Protonix Ec Tab) 40 mg PO DAILY [facility] Last Admin: 08/11/16 09:48 Dose: 40 mg - Labs Labs: 08/11/16 06:15 08/11/16 06:15 Assessment and Plan - Assessment and Plan (Free Text) Assessment: 81F with PMHx of DM2, hyperlipidemia, PAD, PVD, HTN, anemia and gastritis presents to the ED with right leg pain x 1 week. Plan: PAD * Right foot is cool to touch, DP poorly felt, audible on doppler, Femoral pulses +2 Bilaterally * Vascular Consult: Dr. Victor PVD * Restarted Cilostazol 100mg PO TID CAD * DARA placed 2015 * ASA 81mg PO daily * Cardiology recommending ASA 81 and cilastazol only, with notation that GI bleed (01/2016) started soon after patient initiated on plavix. Acute Renal Failure, CKD Stage 3 * Hx of CKD Stage 3 * Baseline creatine 1.6/1.7 with GFR 31 * On admission BUN/ CRE: 850/2.7, GFR 17 * Nephrology consulted, Dr. Alberto- help appreciated * NS @75 cc/hr started * Cross inserted * Strict Is & Os * F/U Renal US HTN * Resumed home medications: Hydralazine 100mg PO TID, Cozaar 50mg PO daily, Held Nifedipine 30mg ER PO daily and held Metoprolol 50mg PO BID * Monitor Hx DM * HgA1C 6.5 10/2015 * F/U HgA1C Hx HLD * F/U lipid panel Prophylactic Measures * GI PPX: Protonix 40mg PO daily * DVT PPX: Contraindications to SCDs due to PAD * Heart Healthy Diet * PT Eval
[2016-08-11] MEDS: Acetylcysteine 20% Inhal Soln (4ml) PO SCH (21:15)
--- NOTE | 2016-08-11 21:17 | CON ---
DATE: 08/11/2016 NEPHROLOGY CONSULTATION HISTORY OF PRESENT ILLNESS: An 81-year-old female with past medical history of diabetes, hypertensio n, hyperlipidemia, peripheral arterial disease, anemia and CKD stage IIIB, presented with right leg p ain since past few days, admitted for possible ischemic limb. Nephrology being consulted for acute r enal failure. Per patient's son, the patient's pain started about 3 days ago and affects the right foot as well as right calf. Pain previously was relatively mild, but became more severe. The patient otherwise had been in her usual state of health, ambulates with a walker/cane, can ambulate about 1 block before be coming short of breath. The patient has been having frequent urination lately and often is incontine nt because of this, being unable to make it to the bathroom in time (also because she is blind and ne eds to be assisted by her son). The patient otherwise denies any dysuria or hematuria. PAST MEDICAL HISTORY: As above. SURGICAL HISTORY: Status post right posterior tibial artery angioplasty, status post cardiac stents, status post left corneal transplant. SOCIAL HISTORY: Previous smoker, quit over 40 years ago. FAMILY HISTORY: Per patient's son, no medical issues with the patient's parents or siblings. REVIEW OF SYSTEMS: CONSTITUTIONAL: Good appetite. No fevers or chills. HEENT: Bilateral blindness, chronic. No sore throat, runny nose reported. RESPIRATORY: No difficulty breathing. CARDIOVASCULAR: Dyspnea on exertion. GASTROINTESTINAL: No nausea, vomiting, diarrhea or constipation. GENITOURINARY: As mentioned in HPI. MUSCULOSKELETAL: No back or joint pains reported, although was given a few pills of ibuprofen recent ly, about a month ago, due to neck pain; however, per son, patient has only used about 4 pills total since then. PSYCHIATRIC: Denies any depression or anxiety. NEUROLOGIC: Has numbness in feet. HEMATOLOGIC: No overt bleeding reported. PHYSICAL EXAMINATION: VITAL SIGNS: This morning, blood pressure 121/65, heart rate 78, respirations 20, temperature 98.4, O2 sat 95% on nasal cannula oxygen. GENERAL: No distress, able to communicate coherently. HEENT: Moist mucous membranes. Nonicteric. NECK: No cervical adenopathy or thyromegaly. RESPIRATORY: Mild inspiratory rales, otherwise no rhonchi or wheezes. CARDIOVASCULAR: Soft systolic murmur radiating to carotids bilaterally. GASTROINTESTINAL: Abdomen soft, nontender, nondistended. GENITOURINARY: No bladder distention. Cross in place, draining urine. EXTREMITIES: No lower leg edema. SKIN: No cyanosis. Right foot toes cool compared to left. PSYCHIATRIC: Normal mood, normal affect. NEUROLOGIC: Follows commands, 4+ to 5/5 motor strength in bilateral upper and lower extremities, dis royer pulses, subtle bilateral femoral bruits present, unable to palpate bilateral dorsalis pedis pulse s. LABORATORY DATA: This morning, WBC 8.7, hemoglobin 10.4, hematocrit 31.0, platelets 347. Chemistry panel: Sodium 132, potassium 4.4, chloride 98, bicarbonate 24, BUN 48, potassium 2.7, glucose 117, c alcium 8.6, phosphorus 4.6, albumin 3.3. LDL 118, hemoglobin A1c 6.5. UA with 1+ protein, 3+ leukoc yte esterase, 117 WBC per high powered field, moderate bacteria. Urine protein 22, creatinine 37.5, ratio 586 mg per gram protein. Renal ultrasound: Directly visualized right kidney, echogenic left ki dney. Likely also with increased echogenicity, question about dilation of collecting system. ASSESSMENT AND PLAN: 1. Acute renal failure on chronic kidney disease, stage IIIB. The patient for the most part has bee n having non-proteinuric kidney disease, most likely due to renal vascular disease as she has known a therosclerotic disease affecting her coronary arteries as well as lower extremities. Cause for rapid decline in renal function needs to be assessed further. Per the patient's labs as outpatient in [facility], serum creatinine was already 2.4, increased from 1.8 just 2 months prior. Possibilities include worsening of renal vascular disease as well as possibility of reflux nephropathy. The patient does mention increased urinary frequency of late. Will obtain renal artery duplex to look for possible ost ial lesion that may be amenable to intervention, although this is unlikely, especially as would have expected much higher blood pressures. Once appropriate to remove Cross, the patient should have bladd er ultrasound with measurement of postvoid residual volume to look for evidence of reflux nephropathy . 2. Chronic kidney disease, stage IIIB/IV. Etiology as mentioned above. Current findings of protein uria by urine protein/creatinine ratio may simply be due to the fact that patient may be having urina ry tract infection. Nevertheless, we will obtain serum free light chain assay, serum protein electro phoresis and 24-hour urine protein electrophoresis for possibility of plasma cell dyscrasia that may be causing worsening renal failure. 3. Hypertension. Blood pressure better controlled today. Currently on hydralazine 100 mg t.i.d., l osartan 50 mg daily. Lasix currently being held. Continue current meds. 4. Anemia, need to check iron studies. Likely has anemia secondary to chronic kidney disease. 5. Urinary tract infection. The patient is asymptomatic and has UA showing pyuria and bacteriuria. Follow up culture and treat. 6. Chronic kidney disease mineral bone disease. We will check PTH for evidence of hyperparathyroidi sm secondary to chronic kidney disease. 7. Peripheral arterial disease. The patient may need angiogram to look for evidence of stenosis tomy t is causing her right lower extremity pain. She is at high risk for contrast-induced nephropathy. Need to weigh the risks versus benefits as dye load can possibly precipitate worsening renal function and even need to initiate hemodialysis as the patient is already stage IV chronic kidney disease. N evertheless, if family is willing to take this risk, should be kept on IV fluids with NS at 75 mL per hour and be given N-acetylcysteine 1200 mg q. 12 hours p.o. for 12-24 hours prior to any dye load. Charles Alberto MD cc: [id number] TT: 08/11/2016 21:17:27 Confirmation # [id number] Dictation # [id number]
[2016-08-12] MEDS: Sodium Chloride 0.9% 1,000 ML IV SCH ×3 (03:30→21:24)
[2016-08-12] MEDS: oxyCODONE 5 mg Immediate Release Tab PO PRN ×3 (05:41→21:34)
--- NOTE | 2016-08-12 07:24 | CP.PCM.PN ---
Subjective - Date & Time of Evaluation Date of Evaluation: 08/12/16 Time of Evaluation: 07:22 - Subjective Subjective: Vasc Sx: Dr Victor Pt S&E. PILAR. Reports pain in leg has resolved. No other complaints. Pending imaging Objective - Vital Signs/Intake and Output Vital Signs (last 24 hours): Temp Pulse Resp BP Pulse Ox 98.9 F 99 H 20 113/62 95 08/12/16 00:55 08/12/16 00:00 08/12/16 00:00 08/12/16 00:00 08/12/16 00:00 Intake and Output: 08/12/16 08/12/16 06:59 18:59 Intake Total 1440 Output Total 900 Balance 540 - Medications Medications: Current Medications Acetaminophen (Tylenol 325mg Tab) 650 mg PO Q6 PRN PRN Reason: Pain, Mild (1-3) Acetylcysteine (Acetylcysteine 20%) 6 ml PO Q12H [facility] Stop: 08/13/16 08:31 Last Admin: 08/11/16 21:15 Dose: 6 ml Aspirin (Aspirin Chewable) 81 mg PO DAILY [facility] Last Admin: 08/11/16 09:49 Dose: 81 mg Cilostazol (Pletal) 100 mg PO BID [facility] Last Admin: 08/11/16 18:12 Dose: 100 mg Docusate Sodium (Colace) 100 mg PO BID [facility] Last Admin: 08/11/16 18:11 Dose: 100 mg Furosemide (Lasix) 20 mg PO BID [facility] Last Admin: 08/10/16 20:14 Dose: Not Given Heparin Sodium (Porcine) (Heparin) 5,000 units SC Q12 [facility] Last Admin: 08/11/16 22:38 Dose: 5,000 units Hydralazine HCl (Apresoline) 100 mg PO TID [facility] Last Admin: 08/11/16 18:11 Dose: 100 mg Sodium Chloride (Sodium Chloride 0.9%) 1,000 mls @ 75 mls/hr IV .[id number] [facility] Last Admin: 08/12/16 03:30 Dose: 75 mls/hr Losartan Potassium (Cozaar) 50 mg PO DAILY [facility] Last Admin: 08/11/16 09:49 Dose: 50 mg Oxycodone HCl (Oxycodone Immediate Release Tab) 5 mg PO Q6 PRN PRN Reason: Pain, moderate (4-7) Last Admin: 08/12/16 05:41 Dose: 5 mg Pantoprazole Sodium (Protonix Ec Tab) 40 mg PO DAILY [facility] Last Admin: 08/11/16 09:48 Dose: 40 mg - Labs Labs: 08/11/16 06:15 08/11/16 06:15 - Constitutional Appears: Non-toxic, No Acute Distress - Respiratory Exam Respiratory Exam: absent: Accessory Muscle Use, Respiratory Distress - Extremities Exam Additional comments: dopplerable pulses b/l - Neurological Exam Neurological Exam: Alert, Awake, Oriented x3 - Psychiatric Exam Psychiatric exam: Normal Affect, Normal Mood Assessment and Plan - Assessment and Plan (Free Text) Assessment: 81F with RLE pain at rest; now resolved Plan: pt pending duplex and CTA once Cr improves to baseline will cont to follow d/w Dr Kayleigh Elias, PGY2
[2016-08-12 08:17] LABS: BASO # 0.1 K/uL (0.0-0.2); BASO % 0.7 % (0.0-2.0); EOS # 0.5 K/uL (0.0-0.7); EOS % 5.5 % (0.0-4.0); HEMATOCRIT 28.6 % (34.0-47.0); LYMPH # 1.1 K/uL (1.0-4.3); LYMPH % 12.7 % (20.0-40.0); MEAN CELL VOLUME 89.9 fL (81.0-99.0); MEAN CORPUSCULAR HEMOGLOBIN 29.4 pg (27.0-31.0); MEAN CORPUSCULAR HGB CONC 32.7 g/dL (33.0-37.0); MEAN PLATELET VOLUME 8.4 fL (7.2-11.7); MONO # 1.2 K/uL (0.0-0.8); MONO % 13.4 % (0.0-10.0); RED CELL DISTRIBUTION WIDTH 16.6 % (11.5-14.5); WHITE BLOOD COUNT 8.6 K/uL (4.8-10.8)
[2016-08-12 08:36] LABS: IRON 42 ug/dL (37-170)
[2016-08-12 08:44] LABS: ALB/GLOB RATIO 0.8 (1.0-2.1); BILIRUBIN,TOTAL 0.6 mg/dL (0.2-1.3); TOTAL PROTEIN 6.3 g/dL (6.3-8.3)
[2016-08-12 08:45] LABS: CALCIUM 7.9 mg/dl (8.6-10.4); MAGNESIUM 2.3 mg/dL (1.6-2.3); PHOSPHOROUS 4.2 mg/dL (2.5-4.5)
[2016-08-12] MEDS: Acetylcysteine 20% Inhal Soln (4ml) PO SCH ×2 (09:30→21:29)
[2016-08-12 09:53] LABS: TOTAL PROTEIN, SERUM 6.6 g/dL (6.1-8.1)
[2016-08-12] MEDS: Cilostazol 100 mg Tab UD PO SCH ×2 (11:30→17:53)
[2016-08-12] MEDS: Pantoprazole 40 mg EC Tab PO SCH (11:31)
--- NOTE | 2016-08-12 11:35 | CP.PCM.PN ---
<Ирина Keys DO - Last Filed: 08/12/16 17:03> Subjective - Date & Time of Evaluation Date of Evaluation: 08/12/16 Time of Evaluation: 11:32 - Subjective Subjective: PGY1 Progress Note for Dr. Lawrence Patient seen and examined with son at bedside. Patient resting comfortably, states pain in leg is improved. Patient currently undergoing 24 hour urine collection. Objective - Vital Signs/Intake and Output Vital Signs (last 24 hours): Temp Pulse Resp BP Pulse Ox 98.5 F 85 20 157/58 H 96 08/12/16 08:00 08/12/16 08:00 08/12/16 08:00 08/12/16 08:00 08/12/16 08:00 Intake and Output: 08/12/16 08/12/16 06:59 18:59 Intake Total 1440 Output Total 900 Balance 540 - Medications Medications: Current Medications Acetaminophen (Tylenol 325mg Tab) 650 mg PO Q6 PRN PRN Reason: Pain, Mild (1-3) Acetylcysteine (Acetylcysteine 20%) 6 ml PO Q12H [facility] Stop: 08/13/16 08:31 Last Admin: 08/11/16 21:15 Dose: 6 ml Aspirin (Aspirin Chewable) 81 mg PO DAILY [facility] Last Admin: 08/11/16 09:49 Dose: 81 mg Cilostazol (Pletal) 100 mg PO BID [facility] Last Admin: 08/11/16 18:12 Dose: 100 mg Docusate Sodium (Colace) 100 mg PO BID [facility] Last Admin: 08/11/16 18:11 Dose: 100 mg Furosemide (Lasix) 20 mg PO BID [facility] Last Admin: 08/10/16 20:14 Dose: Not Given Heparin Sodium (Porcine) (Heparin) 5,000 units SC Q12 [facility] Last Admin: 08/11/16 22:38 Dose: 5,000 units Hydralazine HCl (Apresoline) 100 mg PO TID [facility] Last Admin: 08/11/16 18:11 Dose: 100 mg Sodium Chloride (Sodium Chloride 0.9%) 1,000 mls @ 75 mls/hr IV .[id number] [facility] Last Admin: 08/12/16 03:30 Dose: 75 mls/hr Ceftriaxone Sodium (Rocephin Iv 1 Gm Duplex) 50 mls @ 100 mls/hr IVPB DAILY [facility] Losartan Potassium (Cozaar) 50 mg PO DAILY [facility] Last Admin: 08/11/16 09:49 Dose: 50 mg Oxycodone HCl (Oxycodone Immediate Release Tab) 5 mg PO Q6 PRN PRN Reason: Pain, moderate (4-7) Last Admin: 08/12/16 05:41 Dose: 5 mg Pantoprazole Sodium (Protonix Ec Tab) 40 mg PO DAILY [facility] Last Admin: 08/11/16 09:48 Dose: 40 mg - Labs Labs: 08/12/16 08:02 08/12/16 08:02 - Constitutional Appears: Non-toxic, No Acute Distress - Head Exam Head Exam: ATRAUMATIC, NORMOCEPHALIC - Eye Exam Eye Exam: EOMI - ENT Exam ENT Exam: Mucous Membranes Moist - Respiratory Exam Respiratory Exam: Clear to Ausculation Bilateral - Cardiovascular Exam Cardiovascular Exam: +S1, +S2 - GI/Abdominal Exam GI & Abdominal Exam: Soft, Normal Bowel Sounds. absent: Tenderness - Extremities Exam Additional comments: doppler signal bilateral PT pulses feet warm to touch - Neurological Exam Neurological Exam: Alert, Awake - Psychiatric Exam Psychiatric exam: Normal Affect - Skin Skin Exam: Warm Assessment and Plan - Assessment and Plan (Free Text) Assessment: 1. Peripheral vascular disease * Continue ASA, Cilostazol 100mg PO TID * Consult: Dr. Piña (cardiology) on board * Consult: Dr. Victor (vascular surgery) on board * prior balloon angioplasty in 2016 noted per review of EMR * Oxycodone 5mg PO Q 6hour PRN moderate pain, Tylenol 650mg PO q6prn mild pain * venous dopplers show no DVT, CHINO right 0.51/ left 0.55 2. History of CAD * Continue ASA, Cilostazol 100mg PO TID * GI bleeding associated with prior Plavix use per EMR 3. Acute Renal Failure, CKD Stage 3 * Nephrology consulted, Dr. Alberto- help appreciated * Hx of CKD Stage 3 * Baseline creatine 1.6/1.7 with GFR 31 * On admission BUN/ CRE: 850/2.7, GFR 17- improved slightly today, Creatinine 2.5 * NS @75 cc/hr, mucomyst 6ml PO q12h for 4 doses * 24 hour urine collection ongoing * renal duplex scan pending * Renal US (08/11/16): increased echogenicity of the bilateral renal cortices suggestive for medical renal disease. Diminutive atrophic appearance of the bilateral kidneys. Mild Fullness versus mild hydronephrosis of the bilateral renal collecting systems. Small ammount of fluid adjacent to the right kidney. Cross catheter in the urinary bladder. * Elevated microalbumin, pyuria noted on UA- starting rocephin 1g q24h 4. Hypertension * Resumed home medications: Hydralazine 100mg PO TID, Cozaar 50mg PO daily, Held Nifedipine 30mg ER PO daily and held Metoprolol 50mg PO BID * continue to monitor 5. Diabetes * RISS * Accuchecks QAC and HS * prior a1c: 6.5 controlled 6. Hyperlipidemia * Crestor 5mg PO qhs * T, Chol: 198, LDL: 118, HDL; 29 7. Prophylactic Measures * GI PPX: Protonix 40mg PO daily * DVT PPX: Contraindications to SCDs due to PAD * Heparin 5000 units subq 12hours for DVT ppx * Heart Healthy Diet <Ayala Lawrence V - Last Filed: 08/12/16 18:13> Objective - Vital Signs/Intake and Output Vital Signs (last 24 hours): Temp Pulse Resp BP Pulse Ox 98.5 F 90 20 139/71 95 08/12/16 15:00 08/12/16 15:00 08/12/16 15:00 08/12/16 15:00 08/12/16 15:00 Intake and Output: 08/12/16 08/12/16 06:59 18:59 Intake Total 1440 720 Output Total 900 600 Balance 540 120 - Medications Medications: Current Medications Acetaminophen (Tylenol 325mg Tab) 650 mg PO Q6 PRN PRN Reason: Pain, Mild (1-3) Acetylcysteine (Acetylcysteine 20%) 6 ml PO Q12H [facility] Stop: 08/13/16 08:31 Last Admin: 08/12/16 09:30 Dose: 6 ml Aspirin (Aspirin Chewable) 81 mg PO DAILY [facility] Last Admin: 08/12/16 11:31 Dose: 81 mg Cilostazol (Pletal) 100 mg PO BID [facility] Last Admin: 08/12/16 11:30 Dose: 100 mg Docusate Sodium (Colace) 100 mg PO BID [facility] Last Admin: 08/12/16 11:31 Dose: 100 mg Furosemide (Lasix) 20 mg PO BID [facility] Last Admin: 08/10/16 20:14 Dose: Not Given Heparin Sodium (Porcine) (Heparin) 5,000 units SC Q12 [facility] Last Admin: 08/12/16 11:31 Dose: 5,000 units Hydralazine HCl (Apresoline) 100 mg PO TID [facility] Last Admin: 08/12/16 13:49 Dose: 100 mg Sodium Chloride (Sodium Chloride 0.9%) 1,000 mls @ 75 mls/hr IV .[id number] [facility] Last Admin: 08/12/16 09:30 Dose: Not Given Ceftriaxone Sodium (Rocephin Iv 1 Gm Duplex) 50 mls @ 100 mls/hr IVPB DAILY [facility] Last Admin: 08/12/16 12:08 Dose: 100 mls/hr Losartan Potassium (Cozaar) 50 mg PO DAILY [facility] Last Admin: 08/12/16 11:32 Dose: 50 mg Oxycodone HCl (Oxycodone Immediate Release Tab) 5 mg PO Q6 PRN PRN Reason: Pain, moderate (4-7) Last Admin: 08/12/16 13:49 Dose: 5 mg Pantoprazole Sodium (Protonix Ec Tab) 40 mg PO DAILY [facility] Last Admin: 08/12/16 11:31 Dose: 40 mg - Labs Labs: 08/12/16 08:02 08/12/16 08:02 Attending/Attestation - Attestation I have personally seen and examined this patient.: Yes I have fully participated in the care of the patient.: Yes I have reviewed all pertinent clinical information, including history, physical exam and plan: Yes Notes (Text): Patient seen, examined and case discussed with day-time resident. Patient seen with family present at bedside. Discussed extensively with patient and family at bedside, patient completed Renal US/Arterial duplex. Patient's prelim CHINO: 0.51. and 0.58. Discussed with son and patient, if patient needs CT angio of the leg, will pose risk to the kidney and possibility she will need dialysis. Also, explained to Vascular surgery (Dr. Victor) is on board-->discussed case with him this morning, recommended for dopplers and if improvement in kidney function, possible CT Angio. Also, explained the risks and benefits of getting such CT angio in light of Acute on Chronic Renal Failure, including risk of precipitating the need for dialysis. Nephrology (Dr. Martinez) on board for patient's acute renal failure, undergoing workup. Patient is undergoing on 24 hour urine collection per nephrology. Patient started on Rocephin IV to cover for urinary tract infection. Assessment/Plan 1. Peripheral vascular disease * Continue ASA, Cilostazol 100mg PO TID * Consult: Dr. Piña (cardiology) on board * Consult: Dr. Victor (vascular surgery) on board * prior balloon angioplasty in 2016 noted per review of EMR * Oxycodone 5mg PO Q 6hour PRN moderate pain * Arterial duplex (08/12/16): Right : moderately decreased perfusion of the right lower extremity, noted the iliac, superifical femoral, popliteral, tibital artery levels and Left: moderately decreased perfusion of the right lower extremity, noted the iliac, superifical femoral, popliteral, tibital artery levels. Recommended for CT angio 2. History of CAD * ASA 81mg PO daily * GI bleeding associated with prior Plavix use per EMR 3. Acute Renal Failure, CKD Stage 3 * Nephrology consulted, Dr. Alberto- help appreciated * Hx of CKD Stage 3 * On admission BUN/ CRE: 850/2.7, GFR 17 * NS @75 cc/hr started * Cross present * Strict Is & Os * Renal US (08/11/16): increased echogenicity of the bilateral renal cortices suggestive for medical renal disease. Diminutive atrophic appearance of the bilateral kidneys. Mild Fullness versus mild hydronephrosis of the bilateral renal collecting systems. Small ammount of fluid adjacent to the right kidney. Cross catheter in the urinary bladder. * Renal Arterial duplex (08/12/16): no stenosis * Elevated microalbumin, pyuria noted on UA * 24 hour urine collection in process 4. Hypertension * Resumed home medications: Hydralazine 100mg PO TID, Cozaar 50mg PO daily, Held Nifedipine 30mg ER PO daily and held Metoprolol 50mg PO BID * Monitor vital signs 5. Diabetes * No home meds for DM * RISS * Accuchecks QAC and HS * prior a1c: 6.5 controlled * Crestor 5mg PO qhs * Cozaar 50mg PO daily, * T, Chol: 198, LDL: 118, HDL; 29 6. Hyperlipidemia * Crestor 5mg PO qhs * T, Chol: 198, LDL: 118, HDL; 29 7. Prophylactic Measures * GI PPX: Protonix 40mg PO daily * DVT PPX: Contraindications to SCDs due to PAD * Heparin 5000 units subq 12hours for DVT ppx * Heart Healthy Diet * PT Eval
[2016-08-12] MEDS: cefTRIAXone IV 1 gm in Dextros 50 ML IVPB SCH (12:08)
--- NOTE | 2016-08-12 16:26 | VASCLAB ---
PROCEDURE: Ultrasonography renal arterial evaluation HISTORY: Deteriorating renal function COMPARISON: None available. TECHNIQUE: Real-time ultrasonography evaluation of the renal arteries were performed. Comparison is made to the aorta. Report prepared by QUINCY Sharpe, RVT FINDINGS: AORTA: Patent. Peak systolic velocity 85 centimeters/second RIGHT RENAL ARTERY: Renal artery to aorta ratio: 0.8 * Proximal segment: Patent. Peak systolic velocity 131 centimeters/second * Mid segment: Patent. Peak systolic velocity 139 centimeters/second * Distal segment: Patent. Peak systolic velocity 129 centimeters/second Other findings: Right Kidney measures approximately 8.72 centimeters. LEFT RENAL ARTERY: Renal artery to aorta ratio: 1.0 * Proximal segment: Patent. Peak systolic velocity 157 centimeters/second * Mid segment: Patent. Peak systolic velocity 149 centimeters/second * Distal segment: Patent. Peak systolic velocity 165 centimeters/second Other findings: Left Kidney measures approximately 8.40 centimeters. IMPRESSION: No definite hemodynamically significant stenosis involving the renal arteries as visualized.
--- NOTE | 2016-08-12 16:26 | VASCLAB ---
PROCEDURE: Lower Extremity Venous Duplex Exam. HISTORY: hx PVD with stent, pain right leg PRIORS: None. TECHNIQUE: Bilateral common femoral, femoral, popliteal and posterior tibial, peroneal and great saphenous veins were evaluated. Flow was assessed with color Doppler, compressibility, assessment of phasic flow and augmentation response. Report prepared by Rocky Ddoson, QUINCY, RVT FINDINGS: RIGHT: 1. Common Femoral Vein: 1.1. Compressibility - Fully compressible: Thrombus - None : Flow - Phasic: Augmentation -Normal: Reflux - None. 2. Femoral Vein: 2.1. Compressibility - Fully compressible: Thrombus - None : Flow - Phasic: Augmentation -Normal: Reflux - None. 3. Popliteal Vein: 3.1. Compressibility - Fully compressible: Thrombus - None : Flow - Phasic: Augmentation -Normal: Reflux - None. 4. Posterior Tibial Vein: 4.1. Compressibility - Fully compressible: Thrombus - None: Flow - Phasic: Augmentation -Normal: Reflux - None. 5. Peroneal Vein: 5.1. Compressibility - Fully compressible: Thrombus - None: Flow - Phasic: Augmentation -Normal: Reflux - None. 6. Great Saphenous Vein: 6.1. Compressibility - Fully compressible: Thrombus - None: Flow - Phasic: Augmentation - Normal: Reflux - None. LEFT: 1. Common Femoral Vein: 1.1. Compressibility - Fully compressible: Thrombus - None: Flow - Phasic: Augmentation -Normal: Reflux - None. 2. Femoral Vein: 2.1. Compressibility - Fully compressible: Thrombus - None: Flow - Phasic: Augmentation -Normal: Reflux - None. 3. Popliteal Vein: 3.1. Compressibility - Fully compressible: Thrombus - None : Flow - Phasic: Augmentation -Normal: Reflux - None. 4. Posterior Tibial Vein: 4.1. Compressibility - Fully compressible: Thrombus - None: Flow - Phasic: Augmentation -Normal: Reflux - None. 5. Peroneal Vein: 5.1. Compressibility - Fully compressible: Thrombus - None: Flow - Phasic: Augmentation -Normal: Reflux - None. 6. Great Saphenous Vein: 6.1. Compressibility - Fully compressible: Thrombus - None: Flow - Phasic: Augmentation - Normal: Reflux - None. OTHER FINDINGS: Right: None significant. Left: None significant. IMPRESSION: Right: No evidence of deep or superficial vein thrombosis of the right lower extremity. Normal valve function noted of the right side. Left: No evidence of deep or superficial vein thrombosis of the left lower extremity. Normal valve function noted of the left side.
--- NOTE | 2016-08-12 16:27 | VASCLAB ---
STUDY DESCRIPTION: HISTORY: Hx PVD with stent, right leg pain PRIORS: None. TECHNIQUE: Pulse volume recording waveforms and segmental pressures of bilateral lower extremities at multiple levels were obtained. Ankle Brachial Indices (ABIs) were calculated. Report prepared by QUINCY Sharpe, RVT RIGHT LOWER EXTREMITY: * Brachial artery: Pressure - 170 mmHg. * High thigh: Pressure - mmHg: Ratio - : PVR waveform - Reduced * Low thigh: Pressure - mmHg: Ratio - PVR waveform: Reduced * Calf: Pressure - 116 mmHg: Ratio - 0.68 PVR waveform: Reduced * Posterior tibial Artery: Pressure - 72 mmHg: Ratio - 0.42 PVR waveform: Reduced * Dorsalis pedis Artery: Pressure - 72 mmHg: Ratio - 0.24 PVR waveform: Reduced * Great toe: Pressure - mmHg: Ratio - PVR waveform: Ankle brachial index (CHINO): 0.51 LEFT LOWER EXTREMITY: * Brachial artery: Pressure - 169 mmHg. * High thigh: Pressure - mmHg: Ratio - : PVR waveform - Reduced * Low thigh: Pressure - mmHg: Ratio - PVR waveform: Reduced * Calf: Pressure - 96 mmHg: Ratio - 0.56 PVR waveform: Reduced * Posterior tibial Artery: Pressure - 78 mmHg: Ratio - 0.46 PVR waveform: Reduced * Dorsalis pedis Artery: Pressure - 93 mmHg: Ratio - 0.55 PVR waveform: Reduced * Great toe: Pressure - mmHg: Ratio - PVR waveform: Ankle brachial index (CHINO): 0.55 OTHER FINDINGS: Right: Left: IMPRESSION: Right: This exam reveals moderately decreased perfusion of the right lower extremity, noted at the iliac, superficial femoral, popliteal and tibial artery levels. Left: This exam reveals moderately decreased perfusion of the left lower extremity, noted at the superficial femoral, popliteal and tibial artery levels. Recommend CT angiogram
--- NOTE | 2016-08-12 20:32 | CP.PCM.PN ---
Subjective - Date & Time of Evaluation Date of Evaluation: 08/12/16 Time of Evaluation: 11:05 - Subjective Subjective: Patient seen and evaluated Patient states pain is better with pain meds Physical Exam - Constitutional Appears: No Acute Distress - Head Exam Head Exam: NORMAL INSPECTION, NORMOCEPHALIC - Respiratory Exam Respiratory Exam: Clear to Auscultation Bilateral, NORMAL BREATHING PATTERN. absent: Wheezes - Cardiovascular Exam Cardiovascular Exam: REGULAR RHYTHM, RRR, +S1, +S2 - GI/Abdominal Exam GI & Abdominal Exam: Normal Bowel Sounds, Soft. absent: Distended, Tenderness - Extremities Exam Additional comments: right foot, cool to touch, PVD, varicose veins noted, red swollen, painful to touch, DP felt but very faintly left foot +2 DP, warm to touch - Neurological Exam Neurological exam: Alert, Oriented x3 - Skin Skin Exam: Dry, Intact, Normal Color, Warm Objective - Vital Signs/Intake and Output Vital Signs (last 24 hours): Temp Pulse Resp BP Pulse Ox 98.5 F 90 20 139/71 95 08/12/16 15:00 08/12/16 15:00 08/12/16 15:00 08/12/16 15:00 08/12/16 15:00 Intake and Output: 08/12/16 08/13/16 18:59 06:59 Intake Total 720 Output Total 600 Balance 120 - Medications Medications: Current Medications Acetaminophen (Tylenol 325mg Tab) 650 mg PO Q6 PRN PRN Reason: Pain, Mild (1-3) Acetylcysteine (Acetylcysteine 20%) 6 ml PO Q12H [facility] Stop: 08/13/16 08:31 Last Admin: 08/12/16 09:30 Dose: 6 ml Aspirin (Aspirin Chewable) 81 mg PO DAILY [facility] Last Admin: 08/12/16 11:31 Dose: 81 mg Cilostazol (Pletal) 100 mg PO BID [facility] Last Admin: 08/12/16 17:53 Dose: 100 mg Docusate Sodium (Colace) 100 mg PO BID [facility] Last Admin: 08/12/16 17:53 Dose: 100 mg Ferrous Sulfate (Feosol) 325 mg PO BID [facility] Furosemide (Lasix) 20 mg PO BID [facility] Last Admin: 08/10/16 20:14 Dose: Not Given Heparin Sodium (Porcine) (Heparin) 5,000 units SC Q12 [facility] Last Admin: 08/12/16 11:31 Dose: 5,000 units Hydralazine HCl (Apresoline) 100 mg PO TID [facility] Last Admin: 08/12/16 17:53 Dose: 100 mg Sodium Chloride (Sodium Chloride 0.9%) 1,000 mls @ 75 mls/hr IV .[id number] [facility] Last Admin: 08/12/16 09:30 Dose: Not Given Ceftriaxone Sodium (Rocephin Iv 1 Gm Duplex) 50 mls @ 100 mls/hr IVPB DAILY [facility] Last Admin: 08/12/16 12:08 Dose: 100 mls/hr Losartan Potassium (Cozaar) 50 mg PO DAILY [facility] Last Admin: 08/12/16 11:32 Dose: 50 mg Oxycodone HCl (Oxycodone Immediate Release Tab) 5 mg PO Q6 PRN PRN Reason: Pain, moderate (4-7) Last Admin: 08/12/16 13:49 Dose: 5 mg Pantoprazole Sodium (Protonix Ec Tab) 40 mg PO DAILY [facility] Last Admin: 08/12/16 11:31 Dose: 40 mg - Labs Labs: 08/12/16 08:02 08/12/16 08:02 Assessment and Plan - Assessment and Plan (Free Text) Assessment: 81F with PMHx of DM2, hyperlipidemia, PAD, PVD, HTN, anemia and gastritis presents to the ED with right leg pain x 1 week. Plan: PAD * Right foot is cool to touch, DP poorly felt, audible on doppler, Femoral pulses +2 Bilaterally * Vascular Consult: Dr. Victor PVD * Restarted Cilostazol 100mg PO TID CAD * DARA placed 2015 * ASA 81mg PO daily * Cardiology recommending ASA 81 and cilastazol only, with notation that GI bleed (01/2016) started soon after patient initiated on plavix. Acute Renal Failure, CKD Stage 3 * Hx of CKD Stage 3 * Baseline creatine 1.6/1.7 with GFR 31 * On admission BUN/ CRE: 850/2.7, GFR 17 * Nephrology consulted, Dr. Alberto- help appreciated * NS @75 cc/hr started * Cross inserted * Strict Is & Os * F/U Renal US HTN * Resumed home medications: Hydralazine 100mg PO TID, Cozaar 50mg PO daily, Held Nifedipine 30mg ER PO daily and held Metoprolol 50mg PO BID * Monitor Hx DM * HgA1C 6.5 10/2015 * F/U HgA1C Hx HLD * F/U lipid panel Prophylactic Measures * GI PPX: Protonix 40mg PO daily * DVT PPX: Contraindications to SCDs due to PAD * Heart Healthy Diet * PT Eval
--- NOTE | 2016-08-12 22:09 | CP.PCM.PN ---
Subjective - Date & Time of Evaluation Date of Evaluation: 08/12/16 Time of Evaluation: 20:00 - Subjective Subjective: Patient reportedly eating less during current admission; R lower leg pain is improved; Objective - Vital Signs/Intake and Output Vital Signs (last 24 hours): Temp Pulse Resp BP Pulse Ox 98.5 F 90 20 139/71 95 08/12/16 15:00 08/12/16 15:00 08/12/16 15:00 08/12/16 15:00 08/12/16 15:00 Intake and Output: 08/12/16 08/13/16 18:59 06:59 Intake Total 720 Output Total 600 Balance 120 - Medications Medications: Current Medications Acetaminophen (Tylenol 325mg Tab) 650 mg PO Q6 PRN PRN Reason: Pain, Mild (1-3) Acetylcysteine (Acetylcysteine 20%) 6 ml PO Q12H [facility] Stop: 08/13/16 08:31 Last Admin: 08/12/16 21:29 Dose: 6 ml Aspirin (Aspirin Chewable) 81 mg PO DAILY [facility] Last Admin: 08/12/16 11:31 Dose: 81 mg Cilostazol (Pletal) 100 mg PO BID [facility] Last Admin: 08/12/16 17:53 Dose: 100 mg Docusate Sodium (Colace) 100 mg PO BID [facility] Last Admin: 08/12/16 17:53 Dose: 100 mg Ferrous Sulfate (Feosol) 325 mg PO BID [facility] Furosemide (Lasix) 20 mg PO BID [facility] Last Admin: 08/10/16 20:14 Dose: Not Given Heparin Sodium (Porcine) (Heparin) 5,000 units SC Q12 [facility] Last Admin: 08/12/16 21:26 Dose: 5,000 units Hydralazine HCl (Apresoline) 100 mg PO TID [facility] Last Admin: 08/12/16 17:53 Dose: 100 mg Sodium Chloride (Sodium Chloride 0.9%) 1,000 mls @ 75 mls/hr IV .[id number] [facility] Last Admin: 08/12/16 21:24 Dose: 75 mls/hr Ceftriaxone Sodium (Rocephin Iv 1 Gm Duplex) 50 mls @ 100 mls/hr IVPB DAILY [facility] Last Admin: 08/12/16 12:08 Dose: 100 mls/hr Losartan Potassium (Cozaar) 50 mg PO DAILY [facility] Last Admin: 08/12/16 11:32 Dose: 50 mg Oxycodone HCl (Oxycodone Immediate Release Tab) 5 mg PO Q6 PRN PRN Reason: Pain, moderate (4-7) Last Admin: 08/12/16 21:34 Dose: 5 mg Pantoprazole Sodium (Protonix Ec Tab) 40 mg PO DAILY [facility] Last Admin: 08/12/16 11:31 Dose: 40 mg - Labs Labs: 08/12/16 08:02 08/12/16 08:02 - Constitutional Appears: Non-toxic, No Acute Distress - Head Exam Head Exam: NORMOCEPHALIC - ENT Exam ENT Exam: Mucous Membranes Moist - Respiratory Exam Respiratory Exam: Clear to Ausculation Bilateral, NORMAL BREATHING PATTERN - Cardiovascular Exam Cardiovascular Exam: RRR, +S1 Additional comments: systolic murmur - GI/Abdominal Exam GI & Abdominal Exam: Soft. absent: Distended, Tenderness - Exam Exam: absent: Bladder Distension Additional comments: marcos in place; - Extremities Exam Extremities Exam: Normal Capillary Refill Additional comments: Minimal leg edema; - Neurological Exam Neurological Exam: Alert, Awake - Psychiatric Exam Psychiatric exam: Normal Affect, Normal Mood - Skin Skin Exam: Normal Color, Warm. absent: Cyanosis Assessment and Plan (1) CKD (chronic kidney disease) Assessment & Plan: CKD IV; mostly non-proteinuric kidney disease; appears to be at new baseline increased serum creatinine since past few months; relatively rapid worsening of renal function since last year likely due to progressive renal artery stenosis ( despite negative duplex study) and/or reflux nephropathy; -Needs to be on increased dose of high potency statin on discharge -obtain bladder US with post-void residual volume measurement once UTI treated and patient able to void on her own Status: Acute (2) UTI (urinary tract infection) Assessment & Plan: Started on ceftriaxone for gram neg emani; no renal dose adjustment needed; Status: Acute (3) Peripheral vascular disease Assessment & Plan: Multi-level atherosclerotic disease; likely with renovascular disease; doubt renal function will improve any further; discussed with family that any kind of IV dye study risks deteriorating renal function and cannot rule out the risk of precipitating dialysis dependence; however, if this risk is acceptable, particularly if patient's R leg pain may improve with intervention, then should continue IVF and acetylcysteine prior to study; -on atorvastatin 20 mg daily at home, increase to 40 mg daily on d/c with goal to increase to 80 mg as tolerated; Status: Acute (4) Hyperlipemia Assessment & Plan: Need to maximize statin therapy; Status: Acute (5) HTN (hypertension) Assessment & Plan: Controlled; continue losartan and hydralazine; continue to hold lasix for now; Status: Chronic (6) Proteinuria Assessment & Plan: Mild; doubt this is causing significant contribution to CKD but getting workup for possible plasma cell dyscrasia (SPEP, UPEP, serum free light chains); will f /u; Status: Acute
[2016-08-13 03:55] LABS: CREATININE, 24 HOUR URINE 0.98 g/24 h (0.63-2.50); CREATININE, URINE 0.76 g/L; MICROALBUMIN/CREATININE RATIO 42
[2016-08-13 08:04] LABS: BASO # 0.1 K/uL (0.0-0.2); BASO % 0.8 % (0.0-2.0); EOS # 0.9 K/uL (0.0-0.7); EOS % 9.8 % (0.0-4.0); HEMATOCRIT 27.8 % (34.0-47.0); LYMPH % 11.8 % (20.0-40.0); MEAN CELL VOLUME 89.8 fL (81.0-99.0); MEAN CORPUSCULAR HEMOGLOBIN 29.9 pg (27.0-31.0); MEAN CORPUSCULAR HGB CONC 33.3 g/dL (33.0-37.0); MEAN PLATELET VOLUME 8.3 fL (7.2-11.7); MONO # 1.2 K/uL (0.0-0.8); MONO % 13.3 % (0.0-10.0); RED CELL DISTRIBUTION WIDTH 16.7 % (11.5-14.5); WHITE BLOOD COUNT 8.7 K/uL (4.8-10.8)
[2016-08-13 08:22] LABS: ALB/GLOB RATIO 0.8 (1.0-2.1); BILIRUBIN,TOTAL 0.6 mg/dL (0.2-1.3); CALCIUM 8.1 mg/dl (8.6-10.4); MAGNESIUM 2.2 mg/dL (1.6-2.3); PHOSPHOROUS 3.7 mg/dL (2.5-4.5); TOTAL PROTEIN 6.1 g/dL (6.3-8.3)
[2016-08-13] MEDS: oxyCODONE 5 mg Immediate Release Tab PO PRN ×2 (08:25→20:55)
[2016-08-13] MEDS: Cilostazol 100 mg Tab UD PO SCH ×2 (09:14→18:00)
[2016-08-13] MEDS: Pantoprazole 40 mg EC Tab PO SCH (09:15)
[2016-08-13] MEDS: Acetylcysteine 20% Inhal Soln (4ml) PO SCH (09:15)
[2016-08-13] MEDS: cefTRIAXone IV 1 gm in Dextros 50 ML IVPB SCH (09:16)
[2016-08-13 09:36] LABS: KAPPA/LAMBDA FREE RATIO 2.63 (0.26-1.65)
[2016-08-13] MEDS ORDERED: POLYETHYLENE GLYCOL 3350 17 GM/Dose PACKET PO ONE (10:49)
[2016-08-13] MEDS: Sodium Chloride 0.9% 1,000 ML IV SCH ×2 (10:51→12:10)
--- NOTE | 2016-08-13 11:01 | CP.PCM.PN ---
<Ирина Keys DO - Last Filed: 08/13/16 13:55> Subjective - Date & Time of Evaluation Date of Evaluation: 08/13/16 Time of Evaluation: 09:05 - Subjective Subjective: PGY1 progress note for Dr. Lawrence Patient seen and examined. Patient states pain is controlled while resting in bed with medication however she cannot bear weight on her right leg due to pain. Patient reports poor appetite and per son, she eats well at home. Patient states she has not had a bowel movement since Thursday. Discussed with son and daughter the risks of CTA of right leg in terms of kidney function and that there is a possibility that patient could require dialysis. Patient's children would like to discuss with either other and patient and make final decision. Objective - Vital Signs/Intake and Output Vital Signs (last 24 hours): Temp Pulse Resp BP Pulse Ox 98.9 F 108 H 20 138/62 94 L 08/13/16 00:00 08/13/16 00:00 08/13/16 00:00 08/13/16 00:00 08/13/16 00:00 Intake and Output: 08/13/16 08/13/16 06:59 18:59 Intake Total 1300 Output Total 600 Balance 700 - Medications Medications: Current Medications Acetaminophen (Tylenol 325mg Tab) 650 mg PO Q6 PRN PRN Reason: Pain, Mild (1-3) Aspirin (Aspirin Chewable) 81 mg PO DAILY [facility] Last Admin: 08/12/16 11:31 Dose: 81 mg Cilostazol (Pletal) 100 mg PO BID [facility] Last Admin: 08/13/16 09:14 Dose: 100 mg Docusate Sodium (Colace) 100 mg PO BID [facility] Last Admin: 08/13/16 09:15 Dose: 100 mg Ferrous Sulfate (Feosol) 325 mg PO BID [facility] Last Admin: 08/13/16 09:15 Dose: 325 mg Heparin Sodium (Porcine) (Heparin) 5,000 units SC Q12 [facility] Last Admin: 08/13/16 09:16 Dose: 5,000 units Hydralazine HCl (Apresoline) 100 mg PO TID [facility] Last Admin: 08/13/16 09:14 Dose: 100 mg Sodium Chloride (Sodium Chloride 0.9%) 1,000 mls @ 75 mls/hr IV .[id number] [facility] Last Admin: 08/13/16 10:51 Dose: 75 mls/hr Ceftriaxone Sodium (Rocephin Iv 1 Gm Duplex) 50 mls @ 100 mls/hr IVPB DAILY [facility] Last Admin: 08/13/16 09:16 Dose: 100 mls/hr Losartan Potassium (Cozaar) 50 mg PO DAILY [facility] Last Admin: 08/13/16 09:15 Dose: 50 mg Oxycodone HCl (Oxycodone Immediate Release Tab) 5 mg PO Q6 PRN PRN Reason: Pain, moderate (4-7) Last Admin: 08/13/16 08:25 Dose: 5 mg Pantoprazole Sodium (Protonix Ec Tab) 40 mg PO DAILY [facility] Last Admin: 08/13/16 09:15 Dose: 40 mg Rosuvastatin Calcium (Crestor) 20 mg PO HS [facility] - Labs Labs: 08/13/16 07:49 08/13/16 07:49 - Constitutional Appears: Non-toxic, No Acute Distress - Head Exam Head Exam: ATRAUMATIC, NORMOCEPHALIC - Eye Exam Eye Exam: EOMI - ENT Exam ENT Exam: Mucous Membranes Moist - Respiratory Exam Respiratory Exam: Clear to Ausculation Bilateral, NORMAL BREATHING PATTERN - Cardiovascular Exam Cardiovascular Exam: +S1, +S2, Murmur - GI/Abdominal Exam GI & Abdominal Exam: Soft, Normal Bowel Sounds. absent: Tenderness - Extremities Exam Additional comments: + PT pulses b/l, mild erythema right foot - Neurological Exam Neurological Exam: Alert, Awake - Psychiatric Exam Psychiatric exam: Normal Affect - Skin Skin Exam: Warm Assessment and Plan - Assessment and Plan (Free Text) Assessment: 1. Peripheral vascular disease * Continue ASA, Cilostazol 100mg PO TID * Consult: Dr. Piña (cardiology) on board * Consult: Dr. Victor (vascular surgery) on board * prior balloon angioplasty in 2016 noted per review of EMR * Oxycodone 5mg PO Q 6hour PRN moderate pain, Tylenol 650mg PO q6prn mild pain * venous dopplers show no DVT, CHINO right 0.51/ left 0.55 2. ESBL E.coli UTI * starting primaxin, dosed for renal impairment (08/13/16) * patient on isolation precautions 3. History of CAD * Continue ASA, Cilostazol 100mg PO TID * GI bleeding associated with prior Plavix use per EMR 4. Acute Renal Failure, CKD Stage 3 * Nephrology consulted, Dr. Alberto- help appreciated * Hx of CKD Stage 3 * Baseline creatine 1.6/1.7 with GFR 31 * On admission BUN/ CRE: 850/2.7, GFR 17- improved slightly today (08/13), Creatinine 2.2 * NS @75 cc/hr, mucomyst 6ml PO q12h for 4 doses- completed mucomyst * 24 hour urine collection finished * renal duplex scan- no hemodynamic significant stenosis involving renal arteries * Renal US (08/11/16): increased echogenicity of the bilateral renal cortices suggestive for medical renal disease. Diminutive atrophic appearance of the bilateral kidneys. Mild Fullness versus mild hydronephrosis of the bilateral renal collecting systems. Small ammount of fluid adjacent to the right kidney. Cross catheter in the urinary bladder. 5. Hypertension * Resumed home medications: Hydralazine 100mg PO TID, Cozaar 50mg PO daily * continue to monitor 6. Diabetes * RISS * Accuchecks QAC and HS * prior a1c: 6.5 controlled 7. Hyperlipidemia * Crestor 5mg PO qhs * T, Chol: 198, LDL: 118, HDL; 29 8. Prophylactic Measures * GI PPX: Protonix 40mg PO daily * DVT PPX: Contraindications to SCDs due to PAD * Heparin 5000 units subq 12hours for DVT ppx * Heart Healthy Diet <Ayala Lawrence V - Last Filed: 08/13/16 18:03> Objective - Vital Signs/Intake and Output Vital Signs (last 24 hours): Temp Pulse Resp BP Pulse Ox 98.6 F 106 H 20 120/56 L 95 08/13/16 17:33 08/13/16 17:33 08/13/16 17:33 08/13/16 17:33 08/13/16 17:33 Intake and Output: 08/13/16 08/13/16 06:59 18:59 Intake Total 1300 720 Output Total 600 300 Balance 700 420 - Medications Medications: Current Medications Acetaminophen (Tylenol 325mg Tab) 650 mg PO Q6 PRN PRN Reason: Pain, Mild (1-3) Aspirin (Aspirin Chewable) 81 mg PO DAILY [facility] Last Admin: 08/12/16 11:31 Dose: 81 mg Cilostazol (Pletal) 100 mg PO BID [facility] Last Admin: 08/13/16 09:14 Dose: 100 mg Docusate Sodium (Colace) 100 mg PO BID [facility] Last Admin: 08/13/16 09:15 Dose: 100 mg Ferrous Sulfate (Feosol) 325 mg PO BID [facility] Last Admin: 08/13/16 09:15 Dose: 325 mg Heparin Sodium (Porcine) (Heparin) 5,000 units SC Q12 [facility] Last Admin: 08/13/16 09:16 Dose: 5,000 units Hydralazine HCl (Apresoline) 100 mg PO TID [facility] Last Admin: 08/13/16 15:30 Dose: 100 mg Sodium Chloride (Sodium Chloride 0.9%) 1,000 mls @ 75 mls/hr IV .[id number] [facility] Last Admin: 08/13/16 12:10 Dose: Not Given Imipenem/Cilastatin Sodium 250 (mg/ Sodium Chloride) 100 mls @ 100 mls/hr IVPB Q6H [facility] Last Admin: 08/13/16 15:56 Dose: 100 mls/hr Losartan Potassium (Cozaar) 50 mg PO DAILY [facility] Last Admin: 08/13/16 09:15 Dose: 50 mg Oxycodone HCl (Oxycodone Immediate Release Tab) 5 mg PO Q6 PRN PRN Reason: Pain, moderate (4-7) Last Admin: 08/13/16 08:25 Dose: 5 mg Pantoprazole Sodium (Protonix Ec Tab) 40 mg PO DAILY [facility] Last Admin: 08/13/16 09:15 Dose: 40 mg Rosuvastatin Calcium (Crestor) 20 mg PO HS [facility] - Labs Labs: 08/13/16 07:49 08/13/16 07:49 Attending/Attestation - Attestation I have personally seen and examined this patient.: Yes I have fully participated in the care of the patient.: Yes I have reviewed all pertinent clinical information, including history, physical exam and plan: Yes Notes (Text): Patient seen, examined, and case discussed with day-time resident. Patient transferred to 5th floor for contact isolation for ESBL+ UTI, started on primaxin today. Discussed with patient and patient's son and sister (via telephone) extensively regarding CT angio of lower extremities to evaluate in light of patient's renal function, which may or may not require dialysis dependent on the effect of IV contrast, which is hard to say. Discussed with Dr. Victor, following my conversation with the family and ABIS , recommended to observe at this time. Discussed with Dr. Martinez, patient is completing nephrologic workup regarding renal function, but likely is chronic kidney function, and also noting will require bladder US (outpatient) and pending workup for given kappa lights chain , may need heme-onc evaluation.
[2016-08-13] MEDS ORDERED: Bisacodyl 5mg EC Tab PO ONE (11:30)
--- NOTE | 2016-08-13 14:28 | CP.PCM.PN ---
Subjective - Date & Time of Evaluation Date of Evaluation: 08/13/16 Time of Evaluation: 08:10 - Subjective Subjective: Vascular surgery progress note: Kayleigh Pt seen and examined. Pt reports leg pain has resolved. No other complaints at this time. Objective - Vital Signs/Intake and Output Vital Signs (last 24 hours): Temp Pulse Resp BP Pulse Ox 98.9 F 108 H 20 138/62 94 L 08/13/16 00:00 08/13/16 00:00 08/13/16 00:00 08/13/16 00:00 08/13/16 00:00 Intake and Output: 08/13/16 08/13/16 06:59 18:59 Intake Total 1300 Output Total 600 Balance 700 - Medications Medications: Current Medications Acetaminophen (Tylenol 325mg Tab) 650 mg PO Q6 PRN PRN Reason: Pain, Mild (1-3) Aspirin (Aspirin Chewable) 81 mg PO DAILY [facility] Last Admin: 08/12/16 11:31 Dose: 81 mg Cilostazol (Pletal) 100 mg PO BID [facility] Last Admin: 08/13/16 09:14 Dose: 100 mg Docusate Sodium (Colace) 100 mg PO BID [facility] Last Admin: 08/13/16 09:15 Dose: 100 mg Ferrous Sulfate (Feosol) 325 mg PO BID [facility] Last Admin: 08/13/16 09:15 Dose: 325 mg Heparin Sodium (Porcine) (Heparin) 5,000 units SC Q12 [facility] Last Admin: 08/13/16 09:16 Dose: 5,000 units Hydralazine HCl (Apresoline) 100 mg PO TID [facility] Last Admin: 08/13/16 09:14 Dose: 100 mg Sodium Chloride (Sodium Chloride 0.9%) 1,000 mls @ 75 mls/hr IV .[id number] [facility] Last Admin: 08/13/16 10:51 Dose: 75 mls/hr Imipenem/Cilastatin Sodium 250 (mg/ Sodium Chloride) 100 mls @ 100 mls/hr IVPB Q6H [facility] Losartan Potassium (Cozaar) 50 mg PO DAILY [facility] Last Admin: 08/13/16 09:15 Dose: 50 mg Oxycodone HCl (Oxycodone Immediate Release Tab) 5 mg PO Q6 PRN PRN Reason: Pain, moderate (4-7) Last Admin: 08/13/16 08:25 Dose: 5 mg Pantoprazole Sodium (Protonix Ec Tab) 40 mg PO DAILY [facility] Last Admin: 08/13/16 09:15 Dose: 40 mg Rosuvastatin Calcium (Crestor) 20 mg PO HS [facility] - Labs Labs: 08/13/16 07:49 08/13/16 07:49 - Constitutional Appears: No Acute Distress - Respiratory Exam Respiratory Exam: absent: Accessory Muscle Use, Respiratory Distress - GI/Abdominal Exam GI & Abdominal Exam: Soft. absent: Tenderness - Neurological Exam Neurological Exam: Alert, Awake, Oriented x3 - Psychiatric Exam Psychiatric exam: Normal Affect, Normal Mood Assessment and Plan - Assessment and Plan (Free Text) Assessment: 81 F with RLE pain at rest; now improved Arterial duplex: Decreased perfusion of the left lower extremity noted in the iliac artery on the right leg, and the superficial femoral, popliteal, tibial artery bilaterally. Plan: - venous doppler negative for DVT and SVT - re-evaluate patient with Attending for possible intervention Case d/w Dr. Kayleigh Pearce PGY1
[2016-08-13] MEDS: Imipenem/Cilastatin 250 MG in Sodium Chloride 100 ML IVPB SCH ×2 (15:56→18:00)
--- NOTE | 2016-08-13 20:21 | CP.PCM.PN ---
Subjective - Date & Time of Evaluation Date of Evaluation: 08/13/16 Time of Evaluation: 19:30 - Subjective Subjective: Patient reports R leg pain improved; Objective - Vital Signs/Intake and Output Vital Signs (last 24 hours): Temp Pulse Resp BP Pulse Ox 98.6 F 106 H 20 120/56 L 95 08/13/16 17:33 08/13/16 17:33 08/13/16 17:33 08/13/16 17:33 08/13/16 17:33 Intake and Output: 08/13/16 08/14/16 18:59 06:59 Intake Total 720 Output Total 300 Balance 420 - Medications Medications: Current Medications Acetaminophen (Tylenol 325mg Tab) 650 mg PO Q6 PRN PRN Reason: Pain, Mild (1-3) Aspirin (Aspirin Chewable) 81 mg PO DAILY [facility] Last Admin: 08/12/16 11:31 Dose: 81 mg Cilostazol (Pletal) 100 mg PO BID [facility] Last Admin: 08/13/16 18:00 Dose: 100 mg Docusate Sodium (Colace) 100 mg PO BID [facility] Last Admin: 08/13/16 18:00 Dose: 100 mg Ferrous Sulfate (Feosol) 325 mg PO BID [facility] Last Admin: 08/13/16 18:00 Dose: 325 mg Heparin Sodium (Porcine) (Heparin) 5,000 units SC Q12 [facility] Last Admin: 08/13/16 09:16 Dose: 5,000 units Hydralazine HCl (Apresoline) 100 mg PO TID [facility] Last Admin: 08/13/16 18:00 Dose: 100 mg Sodium Chloride (Sodium Chloride 0.9%) 1,000 mls @ 75 mls/hr IV .[id number] [facility] Last Admin: 08/13/16 12:10 Dose: Not Given Imipenem/Cilastatin Sodium 250 (mg/ Sodium Chloride) 100 mls @ 100 mls/hr IVPB Q6H [facility] Last Admin: 08/13/16 18:00 Dose: 100 mls/hr Losartan Potassium (Cozaar) 50 mg PO DAILY [facility] Last Admin: 08/13/16 09:15 Dose: 50 mg Oxycodone HCl (Oxycodone Immediate Release Tab) 5 mg PO Q6 PRN PRN Reason: Pain, moderate (4-7) Last Admin: 08/13/16 08:25 Dose: 5 mg Pantoprazole Sodium (Protonix Ec Tab) 40 mg PO DAILY [facility] Last Admin: 08/13/16 09:15 Dose: 40 mg Rosuvastatin Calcium (Crestor) 20 mg PO HS [facility] - Labs Labs: 08/13/16 07:49 08/13/16 07:49 - Constitutional Appears: Non-toxic, No Acute Distress - Head Exam Head Exam: NORMOCEPHALIC - Eye Exam Eye Exam: absent: Scleral icterus - ENT Exam ENT Exam: Mucous Membranes Moist - Respiratory Exam Respiratory Exam: Clear to Ausculation Bilateral, NORMAL BREATHING PATTERN - Cardiovascular Exam Cardiovascular Exam: RRR - GI/Abdominal Exam GI & Abdominal Exam: Soft. absent: Distended, Tenderness - Exam Exam: absent: Bladder Distension - Extremities Exam Extremities Exam: Normal Capillary Refill Additional comments: no leg edema; - Neurological Exam Neurological Exam: Alert, Awake - Psychiatric Exam Psychiatric exam: Normal Affect, Normal Mood - Skin Skin Exam: Warm. 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 ; serum creatinine improved with IVF but still with eGFR in low 20's; -continue IVF w/ NS at 75 cc/hr in case dye study is to be done; -bladder US w/ post-void residual measurement once UTI tx complete and marcos removed Status: Acute (2) UTI (urinary tract infection) Assessment & Plan: Started on imipenem 250 mg q6h for E coli ESBL; correctly dosed for CrCl 15-30 ml/min; Status: Acute (3) Peripheral vascular disease Assessment & Plan: Risks vs benefits of angiogram explained to family; likely scenario is renal function will worsen and then improve but cannot rule out precipitating need for HD; continue IVF as mentioned above; Status: Acute (4) Hyperlipemia Assessment & Plan: Continue crestor 20 mg daily; need to max out on dose as outpatient in the setting of likely diffuse atherosclerotic disease; Status: Acute (5) HTN (hypertension) Assessment & Plan: BP controlled, continue current meds including losartan; Status: Chronic (6) Proteinuria Assessment & Plan: ~500 mg proteinuria on 24 hr collection, mostly non-albumin which goes against diabetic nephropathy as cause of CKD; also with significantly elevated kappa light chains thus raising suspicion for plasma cell dyscrasia, awaiting SPEP/ UPEP; will need hematology workup, likely as outpatient; Status: Acute
--- NOTE | 2016-08-13 22:56 | CP.PCM.PN ---
Subjective - Date & Time of Evaluation Date of Evaluation: 08/13/16 Time of Evaluation: 07:00 - Subjective Subjective: Patient seen and evaluated Denies chest pain and dyspnea Improved pain in legs Objective - Vital Signs/Intake and Output Vital Signs (last 24 hours): Temp Pulse Resp BP Pulse Ox 98.6 F 106 H 20 120/56 L 95 08/13/16 17:33 08/13/16 17:33 08/13/16 17:33 08/13/16 17:33 08/13/16 17:33 Intake and Output: 08/13/16 08/14/16 18:59 06:59 Intake Total 720 1100 Output Total 300 400 Balance 420 700 - Medications Medications: Current Medications Acetaminophen (Tylenol 325mg Tab) 650 mg PO Q6 PRN PRN Reason: Pain, Mild (1-3) Aspirin (Aspirin Chewable) 81 mg PO DAILY [facility] Last Admin: 08/12/16 11:31 Dose: 81 mg Cilostazol (Pletal) 100 mg PO BID [facility] Last Admin: 08/13/16 18:00 Dose: 100 mg Docusate Sodium (Colace) 100 mg PO BID [facility] Last Admin: 08/13/16 18:00 Dose: 100 mg Ferrous Sulfate (Feosol) 325 mg PO BID [facility] Last Admin: 08/13/16 18:00 Dose: 325 mg Heparin Sodium (Porcine) (Heparin) 5,000 units SC Q12 [facility] Last Admin: 08/13/16 21:39 Dose: 5,000 units Hydralazine HCl (Apresoline) 100 mg PO TID [facility] Last Admin: 08/13/16 18:00 Dose: 100 mg Sodium Chloride (Sodium Chloride 0.9%) 1,000 mls @ 75 mls/hr IV .[id number] [facility] Last Admin: 08/13/16 12:10 Dose: Not Given Imipenem/Cilastatin Sodium 250 (mg/ Sodium Chloride) 100 mls @ 100 mls/hr IVPB Q6H [facility] Last Admin: 08/13/16 18:00 Dose: 100 mls/hr Losartan Potassium (Cozaar) 50 mg PO DAILY [facility] Last Admin: 08/13/16 09:15 Dose: 50 mg Oxycodone HCl (Oxycodone Immediate Release Tab) 5 mg PO Q6 PRN PRN Reason: Pain, moderate (4-7) Last Admin: 08/13/16 08:25 Dose: 5 mg Pantoprazole Sodium (Protonix Ec Tab) 40 mg PO DAILY [facility] Last Admin: 08/13/16 09:15 Dose: 40 mg Rosuvastatin Calcium (Crestor) 20 mg PO HS [facility] Last Admin: 08/13/16 21:39 Dose: 20 mg - Labs Labs: 08/13/16 07:49 08/13/16 07:49
[2016-08-14] MEDS: Imipenem/Cilastatin 250 MG in Sodium Chloride 100 ML IVPB SCH ×3 (01:02→13:00)
[2016-08-14] MEDS: Sodium Chloride 0.9% 1,000 ML IV SCH (01:02)
[2016-08-14] MEDS: oxyCODONE 5 mg Immediate Release Tab PO PRN ×3 (02:09→16:30)
[2016-08-14 07:00] LABS: BETA 1 GLOBULIN 0.4 g/dL (0.4-0.6); BETA 2 GLOBULIN 0.4 g/dL (0.2-0.5); GAMMA GLOBULIN 1.4 g/dL (0.8-1.7)
[2016-08-14 07:38] LABS: BASO # 0.1 K/uL (0.0-0.2); BASO % 1.2 % (0.0-2.0); EOS % 11.5 % (0.0-4.0); HEMATOCRIT 29.4 % (34.0-47.0); LYMPH % 11.7 % (20.0-40.0); MEAN CELL VOLUME 89.9 fL (81.0-99.0); MEAN CORPUSCULAR HEMOGLOBIN 29.2 pg (27.0-31.0); MEAN CORPUSCULAR HGB CONC 32.4 g/dL (33.0-37.0); MEAN PLATELET VOLUME 8.3 fL (7.2-11.7); MONO # 1.1 K/uL (0.0-0.8); MONO % 12.9 % (0.0-10.0); NRBC % 0.1 % (0.0-2.0); RED CELL DISTRIBUTION WIDTH 17.3 % (11.5-14.5); WHITE BLOOD COUNT 8.5 K/uL (4.8-10.8)
[2016-08-14 08:34] LABS: POTASSIUM 4.2 mmol/L (3.6-5.2)
[2016-08-14 08:36] LABS: ALB/GLOB RATIO 0.8 (1.0-2.1); BILIRUBIN,TOTAL 0.4 mg/dL (0.2-1.3); PHOSPHOROUS 2.8 mg/dL (2.5-4.5); TOTAL PROTEIN 6.1 g/dL (6.3-8.3)
[2016-08-14 08:37] LABS: CALCIUM 8.2 mg/dl (8.6-10.4); MAGNESIUM 2.1 mg/dL (1.6-2.3)
[2016-08-14] MEDS: Cilostazol 100 mg Tab UD PO SCH ×2 (10:45→18:51)
[2016-08-14] MEDS: Pantoprazole 40 mg EC Tab PO SCH (11:44)
--- NOTE | 2016-08-14 12:41 | CP.PCM.PN ---
Subjective - Date & Time of Evaluation Date of Evaluation: 08/14/16 Time of Evaluation: 07:45 - Subjective Subjective: PGY1 Progress Note for Dr. Lawrence Patient seen and examined. Patient vomited once overnight after receiving oxycodone. No other events overnight per report and patient currently not complaining of nausea and vomiting. Objective - Vital Signs/Intake and Output Vital Signs (last 24 hours): Temp Pulse Resp BP Pulse Ox 98.3 F 96 H 20 166/77 H 94 L 08/14/16 08:23 08/14/16 08:23 08/14/16 08:23 08/14/16 08:23 08/14/16 08:23 Intake and Output: 08/14/16 08/14/16 06:59 18:59 Intake Total 1100 Output Total 400 Balance 700 - Medications Medications: Current Medications Acetaminophen (Tylenol 325mg Tab) 650 mg PO Q6 PRN PRN Reason: Pain, Mild (1-3) Last Admin: 08/14/16 00:55 Dose: 650 mg Aspirin (Aspirin Chewable) 81 mg PO DAILY [facility] Last Admin: 08/14/16 11:44 Dose: 81 mg Cilostazol (Pletal) 100 mg PO BID [facility] Last Admin: 08/13/16 18:00 Dose: 100 mg Docusate Sodium (Colace) 100 mg PO BID [facility] Last Admin: 08/14/16 11:44 Dose: 100 mg Ferrous Sulfate (Feosol) 325 mg PO BID [facility] Last Admin: 08/14/16 11:44 Dose: 325 mg Heparin Sodium (Porcine) (Heparin) 5,000 units SC Q12 [facility] Last Admin: 08/14/16 11:44 Dose: 5,000 units Hydralazine HCl (Apresoline) 100 mg PO TID [facility] Last Admin: 08/14/16 11:44 Dose: 100 mg Sodium Chloride (Sodium Chloride 0.9%) 1,000 mls @ 75 mls/hr IV .[id number] [facility] Last Admin: 08/14/16 01:02 Dose: 75 mls/hr Imipenem/Cilastatin Sodium 250 (mg/ Sodium Chloride) 100 mls @ 100 mls/hr IVPB Q6H [facility] Last Admin: 08/14/16 08:34 Dose: 100 mls/hr Losartan Potassium (Cozaar) 50 mg PO DAILY [facility] Last Admin: 08/14/16 11:44 Dose: 50 mg Oxycodone HCl (Oxycodone Immediate Release Tab) 5 mg PO Q6 PRN PRN Reason: Pain, moderate (4-7) Last Admin: 08/14/16 08:33 Dose: 5 mg Pantoprazole Sodium (Protonix Ec Tab) 40 mg PO DAILY [facility] Last Admin: 08/14/16 11:44 Dose: 40 mg Rosuvastatin Calcium (Crestor) 20 mg PO HS [facility] Last Admin: 08/13/16 21:39 Dose: 20 mg - Labs Labs: 08/14/16 07:28 08/14/16 07:28 - Constitutional Appears: Non-toxic, No Acute Distress - Head Exam Head Exam: NORMAL INSPECTION - Eye Exam Eye Exam: EOMI - ENT Exam ENT Exam: Mucous Membranes Moist - Respiratory Exam Respiratory Exam: Clear to Ausculation Bilateral, NORMAL BREATHING PATTERN - Cardiovascular Exam Cardiovascular Exam: +S1, +S2, Murmur - GI/Abdominal Exam GI & Abdominal Exam: Soft, Normal Bowel Sounds. absent: Tenderness - Exam Additional comments: marcos - Extremities Exam Additional comments: bilateral lower extremities warm to touch, PT pulses b/l - Neurological Exam Neurological Exam: Alert, Awake - Psychiatric Exam Psychiatric exam: Normal Affect - Skin Skin Exam: Warm Assessment and Plan - Assessment and Plan (Free Text) Assessment: 1. Peripheral vascular disease * Continue ASA, Cilostazol 100mg PO TID * Consult: Dr. Piña (cardiology) on board * Consult: Dr. Victor (vascular surgery) on board- patient will not require intervention at this time however we will need to continue to monitor patient * prior balloon angioplasty in 2016 noted per review of EMR * Oxycodone 5mg PO Q 6hour PRN moderate pain, Tylenol 650mg PO q6prn mild pain * venous dopplers show no DVT, CHINO right 0.51/ left 0.55 2. ESBL E.coli UTI * starting primaxin, dosed for renal impairment (08/13/16)- patient will need 5 more days IV antibiotics, will repeat urine culture today * patient on isolation precautions 3. History of CAD * Continue ASA, Cilostazol 100mg PO TID * GI bleeding associated with prior Plavix use per EMR 4. Acute Renal Failure, CKD Stage 3 * Nephrology consulted, Dr. Alberto- help appreciated * Hx of CKD Stage 3 * Baseline creatine 1.6/1.7 with GFR 31 * On admission BUN/ CRE: 850/2.7, GFR 17- improved slightly today (08/14), Creatinine 1.9, GFR 25 * NS @75 cc/hr, mucomyst 6ml PO q12h for 4 doses- completed mucomyst * renal duplex scan- no hemodynamic significant stenosis involving renal arteries * Renal US (08/11/16): increased echogenicity of the bilateral renal cortices suggestive for medical renal disease. Diminutive atrophic appearance of the bilateral kidneys. Mild Fullness versus mild hydronephrosis of the bilateral renal collecting systems. Small ammount of fluid adjacent to the right kidney. Marcos catheter in the urinary bladder. * Patient will need to continue statin therapy- as much as tolerable to patient. Patient will need bladder US with post void residual once UTI treatment completed and marcos removed * Heme-onc consulted due to elevated kappa light chains, rule out multiple myeloma 5. Hypertension * Resumed home medications: Hydralazine 100mg PO TID, Cozaar 50mg PO daily * continue to monitor 6. Diabetes * RISS * Accuchecks QAC and HS * prior a1c: 6.5 controlled 7. Hyperlipidemia * Crestor 20mg PO qhs * T, Chol: 198, LDL: 118, HDL; 29 8. Prophylactic Measures * GI PPX: Protonix 40mg PO daily * DVT PPX: Contraindications to SCDs due to PAD * Heparin 5000 units subq 12hours for DVT ppx * Heart Healthy Diet
--- NOTE | 2016-08-14 14:17 | CP.PCM.CON ---
History of Present Illness - History of Present Illness History of Present Illness: 81 year old female with a history of HTN, HL, DM, CAD s/p stent, PVD s/p balloon angioplasty, CKD, admitted with right leg pain found to have an abnormal free light chain ratio. Per her son, she is feeling better since coming to the hospital. He notes she has never had bone problems in the past. She has not required recent transfusions. Past medical history: HTN, HL, DM, CAD s/p stent, PVD s/p balloon angioplasty, CKD Past surgical history: None Family history: Denies hematologic and oncologic problems Social history: Former tobacco abuse, denies alcohol, and illicit drug use. Allergies: Unknown antibiotics Review of systems: All remaining review of systems including HEENT, cardiovascular, respiratory, gastrointestinal, genitourinary, musculoskeletal, dermatologic, neurologic, and psychiatric are negative unless mentioned in the HPI. Past Patient History - Infectious Disease Hx of Infectious Diseases: None - Tetanus Immunizations Tetanus Immunization: Unknown - Past Medical History & Family History Past Medical History?: Yes - Past Social History Smoking Status: Former Smoker - CARDIAC Hx Cardiac Disorders: Yes Hx Hypercholesterolemia: Yes Hx Hypertension: Yes - PULMONARY Hx Respiratory Disorders: No - NEUROLOGICAL Hx Neurological Disorder: No - HEENT Hx HEENT Problems: Yes Hx Blind: Yes Other/Comment: [employer]. 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 - RENAL Hx Chronic Kidney Disease: No - ENDOCRINE/METABOLIC Hx Diabetes Mellitus Type 2: Yes - HEMATOLOGICAL/ONCOLOGICAL Hx Blood Disorders: Yes Hx Blood Transfusions: Yes Hx Blood Transfusion Reaction: No - INTEGUMENTARY Hx Dermatological Problems: No - MUSCULOSKELETAL/RHEUMATOLOGICAL Hx Arthritis: Yes - GASTROINTESTINAL Hx Gastritis: Yes - GENITOURINARY/GYNECOLOGICAL Hx Genitourinary Disorders: No Other/Comment: s/p hysterectomy as per son done >20 yrs ago - PSYCHIATRIC Hx Substance Use: No - SURGICAL HISTORY Hx Surgeries: Yes Hx Coronary Stent: Yes (2015) Hx Eye Surgery: Yes (Left corneal transplant) Hx Femoral-Popliteal Bypass Graft: Yes (2014) Other/Comment: [employer] 02/05/15 - ANESTHESIA Hx Anesthesia: Yes Hx Anesthesia Reactions: No Meds Allergies/Adverse Reactions: Allergies Allergy/AdvReac Type Severity Reaction Status Date / Time unknown abx AdvReac Mild RASH Uncoded 07/01/16 08:11 - Medications Medications: Current Medications Acetaminophen (Tylenol 325mg Tab) 650 mg PO Q6 PRN PRN Reason: Pain, Mild (1-3) Last Admin: 08/14/16 00:55 Dose: 650 mg Aspirin (Aspirin Chewable) 81 mg PO DAILY [facility] Last Admin: 08/14/16 11:44 Dose: 81 mg Cilostazol (Pletal) 100 mg PO BID [facility] Last Admin: 08/13/16 18:00 Dose: 100 mg Docusate Sodium (Colace) 100 mg PO BID [facility] Last Admin: 08/14/16 11:44 Dose: 100 mg Ferrous Sulfate (Feosol) 325 mg PO BID [facility] Last Admin: 08/14/16 11:44 Dose: 325 mg Heparin Sodium (Porcine) (Heparin) 5,000 units SC Q12 [facility] Last Admin: 08/14/16 11:44 Dose: 5,000 units Hydralazine HCl (Apresoline) 100 mg PO TID [facility] Last Admin: 08/14/16 11:44 Dose: 100 mg Sodium Chloride (Sodium Chloride 0.9%) 1,000 mls @ 75 mls/hr IV .[id number] [facility] Last Admin: 08/14/16 01:02 Dose: 75 mls/hr Imipenem/Cilastatin Sodium 250 (mg/ Sodium Chloride) 100 mls @ 100 mls/hr IVPB Q6H [facility] Last Admin: 08/14/16 08:34 Dose: 100 mls/hr Losartan Potassium (Cozaar) 50 mg PO DAILY [facility] Last Admin: 08/14/16 11:44 Dose: 50 mg Oxycodone HCl (Oxycodone Immediate Release Tab) 5 mg PO Q6 PRN PRN Reason: Pain, moderate (4-7) Last Admin: 08/14/16 08:33 Dose: 5 mg Pantoprazole Sodium (Protonix Ec Tab) 40 mg PO DAILY [facility] Last Admin: 08/14/16 11:44 Dose: 40 mg Rosuvastatin Calcium (Crestor) 20 mg PO HS [facility] Last Admin: 08/13/16 21:39 Dose: 20 mg Physical Exam - Head Exam Head Exam: ATRAUMATIC - Eye Exam Eye Exam: Normal appearance - ENT Exam ENT Exam: Mucous Membranes Dry - Respiratory Exam Respiratory Exam: NORMAL BREATHING PATTERN - Cardiovascular Exam Cardiovascular Exam: +S1, +S2 - GI/Abdominal Exam GI & Abdominal Exam: Normal Bowel Sounds - Psychiatric Exam Psychiatric exam: Normal Mood - Skin Skin Exam: Warm Results - Vital Signs Recent Vital Signs: Last Vital Signs Temp 98.3 F 08/14/16 08:23 Pulse 96 H 08/14/16 08:23 Resp 20 08/14/16 08:23 BP 166/77 H 08/14/16 08:23 Pulse Ox 94 L 08/14/16 08:23 - Labs Result Diagrams: 08/14/16 07:28 08/14/16 07:28 Labs: Laboratory Results - last 24 hr 08/11/16 08/14/16 08/14/16 06:15 07:28 07:28 WBC 8.5 RBC 3.27 L Hgb 9.5 L Hct 29.4 L MCV 89.9 MCH 29.2 MCHC 32.4 L RDW 17.3 H Plt Count 307 MPV 8.3 Neut % (Auto) 62.7 Lymph % (Auto) 11.7 L Bailey % (Auto) 12.9 H Eos % (Auto) 11.5 H Baso % (Auto) 1.2 Neut # 5.3 Lymph # 1.0 Bailey # 1.1 H Eos # 1.0 H Baso # 0.1 Sodium 137 Potassium 4.2 Chloride 108 H Carbon Dioxide 20 L Anion Gap 14 BUN 25 H Creatinine 1.9 H Est GFR ( Amer) 31 Est GFR (Non-Af Amer) 25 Random Glucose 108 H Calcium 8.2 L Phosphorus 2.8 Magnesium 2.1 Total Bilirubin 0.4 AST 19 ALT 14 Alkaline Phosphatase 66 Total Protein 6.1 L Albumin 2.7 L Albumin (PEP) 3.1 L Globulin 3.4 Albumin/Globulin Ratio 0.8 L Cozte-7-Ciioeitfq 0.3 Zytcx-6-Wjsvevvuc 0.9 Rcoa-9-Bnprgbvm 0.4 Weyu-0-Moskvokz 0.4 Gamma Globulins 1.4 Abnorm Protein Band 1 TEST NOT PERFORMED Abnorm Protein Band 2 TEST NOT PERFORMED Abnorm Protein Band 3 TEST NOT PERFORMED Vitamin B12 303 BELL & SPEP Interp See note [place]/Lambda Light Chain see note Free [place] Light Chains 219.3 H Free [place] Light Chain 83.3 H Free [place]/Lambda Ratio 2.63 H Assessment & Plan (1) Free monoclonal light chain Assessment and Plan: abnormal free light chain ratio discussed the role of renal biopsy in evaluating for the presence of monoclonal protein deposition as well as a bone marrow biopsy given the patients renal function is improving; the patient son has elected to repeat her free light chain assay in the future and proceed from there. Status: Acute (2) Anemia Assessment and Plan: likely anemia of CKD and chronic disease will send ferritin, b12, folate, retic count, FOBT to further evaluate Thank you for this interesting consult. Status: Acute
[2016-08-14 15:56] VITALS: BP 169/75; PULSE 97; TEMP 98.6; O2SAT 95
--- NOTE | 2016-08-14 16:29 | RAD ---
HISTORY: looking for pulm vascular congestion COMPARISON: 01/22/2016 FINDINGS: LUNGS: The pulmonary vasculature is mildly increased. This is minimally increased since the prior exam. Is left lung base effusion with consolidation and/or atelectasis is suspect. The obscuration of left hemithorax diaphragm is similar to the prior exam PLEURA: Pleural effusion as above CARDIOVASCULAR: Mild cardiomegaly. Tortuous and calcified thoracic aorta OSSEOUS STRUCTURES: No significant abnormalities. VISUALIZED UPPER ABDOMEN: Normal. OTHER FINDINGS: None. IMPRESSION: Mild cardiomegaly. Mild pulmonary venous congestion pulmonary vascular congestion has slightly increased since the prior 2016 study Small left pleural effusion. Left basal atelectasis and or consolidation -mild obscuration left hemidiaphragm was present previously and also noted previously
--- NOTE | 2016-08-14 17:45 | CP.PCM.DIS ---
Provider - Provider Date of Admission: 08/10/16 15:43 Attending physician: Ayala Lawrence DO Primary care physician: Dr. Nicole Consults: Dr. Dolly Piña Time Spent in preparation of Discharge (in minutes): 35 Diagnosis - Discharge Diagnosis (1) CKD (chronic kidney disease) Status: Acute Comment: Patient to follow up with nephrology as outpatient to continue work up for CKD. Patient's renal function improved while hospitalized after IV fluid hydration and mucomyst. (2) Peripheral vascular disease Status: Acute Priority: High Comment: Patient to follow up with Dr. Victor on discharge for further evaluation of her lower extremity circulation. (3) UTI (urinary tract infection) Status: Acute Comment: Patient to complete 5 more days of primaxin. (4) CKD (chronic kidney disease) stage 3, GFR 30-59 ml/min Status: Acute (5) Hyperlipemia Status: Acute Comment: patient to continue crestor 20mg daily. (6) HTN (hypertension) Status: Chronic Comment: Patient to continue Hydralazine 100mg PO TID, Cozaar 50mg PO daily Hospital Course - Lab Results Lab Results: Micro Results 08/10/16 20:30 Urine,Cross Urine Culture - Final Escherichia Coli Most Recent Lab Values WBC 8.5 K/uL (4.8-10.8) 08/14/16 07:28 RBC 3.27 Mil/uL (3.80-5.20) L 08/14/16 07:28 Hgb 9.5 g/dL (11.0-16.0) L 08/14/16 07:28 Hct 29.4 % (34.0-47.0) L 08/14/16 07:28 MCV 89.9 fL (81.0-99.0) 08/14/16 07:28 MCH 29.2 pg (27.0-31.0) 08/14/16 07:28 MCHC 32.4 g/dL (33.0-37.0) L 08/14/16 07:28 RDW 17.3 % (11.5-14.5) H 08/14/16 07:28 Plt Count 307 K/uL (130-400) 08/14/16 07:28 MPV 8.3 fL (7.2-11.7) 08/14/16 07:28 Neut % (Auto) 62.7 % (50.0-75.0) 08/14/16 07:28 Lymph % (Auto) 11.7 % (20.0-40.0) L 08/14/16 07:28 [place] % (Auto) 12.9 % (0.0-10.0) H 08/14/16 07:28 Eos % (Auto) 11.5 % (0.0-4.0) H 08/14/16 07:28 Baso % (Auto) 1.2 % (0.0-2.0) 08/14/16 07:28 Neut # 5.3 K/uL (1.8-7.0) 08/14/16 07:28 Lymph # 1.0 K/uL (1.0-4.3) 08/14/16 07:28 [place] # 1.1 K/uL (0.0-0.8) H 08/14/16 07:28 Eos # 1.0 K/uL (0.0-0.7) H 08/14/16 07:28 Baso # 0.1 K/uL (0.0-0.2) 08/14/16 07:28 Sodium 137 mmol/L (132-148) 08/14/16 07:28 Potassium 4.2 mmol/L (3.6-5.2) 08/14/16 07:28 Chloride 108 mmol/L (98-107) H 08/14/16 07:28 Carbon Dioxide 20 mmol/L (22-30) L 08/14/16 07:28 Anion Gap 14 (10-20) 08/14/16 07:28 BUN 25 mg/dL (7-17) H 08/14/16 07:28 Creatinine 1.9 MG/DL (0.7-1.2) H 08/14/16 07:28 Est GFR ( Amer) 31 08/14/16 07:28 Est GFR (Non-Af Amer) 25 08/14/16 07:28 Random Glucose 108 mg/dL (65-105) H 08/14/16 07:28 Hemoglobin A1c 6.5 % (4.2-6.5) 08/11/16 06:15 Calcium 8.2 mg/dl (8.6-10.4) L 08/14/16 07:28 Phosphorus 2.8 mg/dL (2.5-4.5) 08/14/16 07:28 Magnesium 2.1 mg/dL (1.6-2.3) 08/14/16 07:28 Iron 42 ug/dL (37-170) 08/12/16 08:02 TIBC 241 ug/dL (250-450) L 08/12/16 08:02 % Saturation 17 (20-55) L 08/12/16 08:02 Ferritin 44.8 ng/mL 08/12/16 08:02 Total Bilirubin 0.4 mg/dL (0.2-1.3) 08/14/16 07:28 AST 19 U/L (14-36) 08/14/16 07:28 ALT 14 U/L (9-52) 08/14/16 07:28 Alkaline Phosphatase 66 U/L (38-126) 08/14/16 07:28 Total Protein 6.1 g/dL (6.3-8.3) L 08/14/16 07:28 Total Protein (PEP) 6.6 g/dL (6.1-8.1) 08/11/16 06:15 Albumin 2.7 g/dL (3.5-5.0) L 08/14/16 07:28 Albumin (PEP) 3.1 g/dL (3.8-4.8) L 08/11/16 06:15 Globulin 3.4 gm/dL (2.2-3.9) 08/14/16 07:28 Albumin/Globulin Ratio 0.8 (1.0-2.1) L 08/14/16 07:28 Krhjs-8-Rtwissgkw 0.3 g/dL (0.2-0.3) 08/11/16 06:15 Obsyn-5-Pohnecxrl 0.9 g/dL (0.5-0.9) 08/11/16 06:15 Xqsc-4-Kqgycagh 0.4 g/dL (0.4-0.6) 08/11/16 06:15 Bjvw-4-Ftuejhec 0.4 g/dL (0.2-0.5) 08/11/16 06:15 Gamma Globulins 1.4 g/dL (0.8-1.7) 08/11/16 06:15 Abnorm Protein Band 1 TEST NOT PERFORMED 08/11/16 06:15 Abnorm Protein Band 2 TEST NOT PERFORMED 08/11/16 06:15 Abnorm Protein Band 3 TEST NOT PERFORMED 08/11/16 06:15 Triglycerides 189 mg/dL (0-149) H D 08/11/16 06:15 Cholesterol 198 mg/dL (0-199) 08/11/16 06:15 LDL Cholesterol Direct 118 mg/dL (0-129) 08/11/16 06:15 HDL Cholesterol 29 mg/dL (30-70) L 08/11/16 06:15 Vitamin B12 303 pg/mL (239-931) 08/14/16 07:28 Folate 9.0 ng/mL 08/14/16 07:28 Urine Color Yellow (YELLOW) 08/10/16 21:31 Urine Clarity Hazy (Clear) 08/10/16 21:31 Urine pH 5.0 (5.0-8.0) 08/10/16 21:31 Ur Specific [place] 1.006 (1.003-1.030) 08/10/16 21:31 Urine Protein 1+ mg/dL (NEGATIVE) H 08/10/16 21:31 Urine Glucose (UA) Normal mg/dL (Normal) 08/10/16 21:31 Urine Ketones Negative mg/dL (NEGATIVE) 08/10/16 21:31 Urine Blood Negative (NEGATIVE) 08/10/16 21:31 Urine Nitrate Negative (NEGATIVE) 08/10/16 21:31 Urine Bilirubin Negative (NEGATIVE) 08/10/16 21:31 Urine Urobilinogen Normal mg/dL (0.2-1.0) 08/10/16 21:31 Ur Leukocyte Esterase 3+ [place]erson/uL (Negative) H 08/10/16 21:31 Urine WBC (Auto) 117 /hpf (0-5) H 08/10/16 21:31 Urine RBC (Auto) 2 /hpf (0-3) 08/10/16 21:31 Urine WBC Clumps (Auto) Few /hpf (NONE) H 08/10/16 21:31 Urine Bacteria Mod (<OCC) H 08/10/16 21:31 Ur Random Creatinine 37.5 mg/dL 08/10/16 21:31 U Random Total Protein 22.0 mg/dL (0.0-12.0) H 08/10/16 21:46 Ur Random Sodium 44 mmol/L 08/10/16 21:31 Ur Random Urea Nitrogn 196 mg/dL 08/10/16 21:46 Urine Collection Time 24 HRS 08/12/16 15:12 Urine Total Volume 1300 mL 08/12/16 15:12 Urine Creatinine 0.76 g/L 08/12/16 15:12 Ur Creatinine 24 Hour 1.01 g/24 h (0.63-2.50) 08/12/16 15:12 Urine Microalbumin 43.5 mg/L (0.0-16.6) H 08/10/16 21:31 Ur Microalbumin mg/dl 3.3 mg/dL 08/12/16 15:12 Ur Microalbumin mcg/min 30 mcg/min (<20) H 08/12/16 15:12 Ur Microalbumin 24 Hr 43 mg/24 h (<30) H 08/12/16 15:12 U Creat (Microalbumin) 0.78 g/L 08/12/16 15:12 Microalb/Creat Ratio 24 42 08/12/16 15:12 Ur Total Protein 24 Hr 538 mg/24 h (<150) H 08/12/16 15:12 Protein/Creat Ratio 24h 548 mg/g creat (</=84) H 08/12/16 15:12 Urine Total Protein 414 mg/L (50-240) H 08/12/16 15:12 Ur Protein 24 Hr Calc 364.0 mg/24hr (42-225) H 08/12/16 15:12 BELL & SPEP Interp See note 08/11/16 06:15 [place]/Lambda Light Chain see note 08/11/16 06:15 Free [place] Light Chains 219.3 mg/L (3.3-19.4) H 08/11/16 06:15 Free Lambda Light Chain 83.3 mg/L (5.7-26.3) H 08/11/16 06:15 Free [place]/Lambda Ratio 2.63 (0.26-1.65) H 08/11/16 06:15 - Hospital Course Hospital Course: On Admission: 81F with PMHx of DM2, hyperlipidemia, PAD, PVD, HTN, anemia and gastritis presents to the ED with right leg pain x 1 week. As per the son, patient has been having right leg pain intermittently for the past year or so, however the past few weeks the pain has become unbearable. The right foot is cool to touch, painful and she feels her right foot pulsating. Patient ambulates with assistance but has unable to do so the last few days due to the pain. Denied fever, chills, headache, chest pain, abdominal pain, n/v/d/c, or urinary symptoms. During Hospitalization: Patient's pain was treated during hospitalization and patient was started on IV fluids for treatment of her JOSÉ MIGUEL on CKD. Patient's right lower extremity was warm to touch and pulses were found by doppler bilaterally. Patient's renal function slowly improved with IV fluids and acetylcysteine. It was discussed with family the risks and benefits of obtaining a CT with contrast to evaluate the blood flow in the leg. As patient does not need immediate surgical intervention, further imaging was not obtained. Patient will need to follow up with Dr. Victor for further evaluation of her circulation. venous dopplers show no DVT Arterial duplex: Decreased perfusion of the left lower extremity noted in the iliac artery on the right leg, and the superficial femoral, popliteal, tibial artery bilaterally. [place] right 0.51/ left 0.55 Patient was seen by litigation attorney Dr. Alberto. Patient had work up for her likely CKD IV. renal duplex scan- no hemodynamic significant stenosis involving renal arteries Renal US (08/11/16): increased echogenicity of the bilateral renal cortices suggestive for medical renal disease. Diminutive atrophic appearance of the bilateral kidneys. Mild Fullness versus mild hydronephrosis of the bilateral renal collecting systems. Small ammount of fluid adjacent to the right kidney. Cross catheter in the urinary bladder. 500 mg proteinuria on 24 hr collection, mostly non-albumin which goes against diabetic nephropathy as cause of CKD; also with significantly elevated kappa light chains thus raising suspicion for plasma cell dyscrasia Patient was seen by Dr. Goodwin for abnormal free light chain ratio. Patient will need to follow up with Dr. Goodwin as outpatient for further workup. On Discharge: Patient is stable for discharge to [facility] when bed is available per Dr. Lawrence. Patient is to continue primaxin for 5 more days for treatment of her urinary tract infection. Patient is to follow up with Dr. Alberto, nephrology upon discharge for further workup of her kidney disease. Patient is to follow up with Dr. Victor for evaluation of her lower extremity circulation. Patient is to follow up with Dr. Goodwin for further workup of possible multiple myeloma. Patient is to take the following medications on discharge: lasix 20mg daily, aspirin 81mg daily, cilostazol 100mg twice a day, colace 100mg twice a day while taking oxycodone 5mg q8h as needed for pain, ferrous sulfate 325mg twice a day, hydralazine 100mg three times a day, losartan 50mg once daily, protonix 40mg daily, crestor 20mg nightly. Patient is to return to the ED if symptoms reoccur or worsen. This was explained to the patient and family who understand and agree. This is only a summary of patient's hospitalization, for more detail please see complete record Discharge Exam - Head Exam Head Exam: ATRAUMATIC - Eye Exam Eye Exam: EOMI - ENT Exam ENT Exam: Mucous Membranes Moist - Respiratory Exam Respiratory Exam: Rales, NORMAL BREATHING PATTERN - Cardiovascular Exam Cardiovascular Exam: +S1, +S2, Systolic Murmur - GI/Abdominal Exam GI & Abdominal Exam: Normal Bowel Sounds, Soft. absent: Tenderness - Extremities Exam Additional comments: bilateral lower extremities warm to touch with PT pulses bilaterally - Neurological Exam Neurological exam: Alert - Psychiatric Exam Psychiatric exam: Normal Affect - Skin Skin Exam: Warm Discharge Plan - Discharge Medications Prescriptions: Furosemide [Lasix] 20 mg PO DAILY #30 tab - Follow Up Plan Condition: IMPROVED Disposition: HOME/ ROUTINE Instructions: Acute Kidney Injury (DC), Peripheral Vascular Disease (DC) Additional Instructions: Patient is stable for discharge to [facility] when bed is available per Dr. Lawrence. Patient is to continue primaxin for 5 more days for treatment of her urinary tract infection. Patient is to follow up with Dr. Alberto, nephrology upon discharge for further workup of her kidney disease. Patient is to follow up with Dr. Victor for evaluation of her lower extremity circulation. Patient is to follow up with Dr. Goodwin for further workup of possible multiple myeloma. Patient is to take the following medications on discharge: lasix 20mg daily, aspirin 81mg daily, cilostazol 100mg twice a day, colace 100mg twice a day while taking oxycodone 5mg q8h as needed for pain, ferrous sulfate 325mg twice a day, hydralazine 100mg three times a day, losartan 50mg once daily, protonix 40mg daily, crestor 20mg nightly. Patient is to return to the ED if symptoms reoccur or worsen. This was explained to the patient and family who understand and agree. Referrals: Cezar Goodwin MD [Staff Provider] - Conor Victor Jr., MD [Staff Provider] - Charles Alberto MD [Staff Provider] -
--- NOTE | 2016-08-14 20:30 | PN ---
DATE: 08/14/2016 HISTORY OF PRESENT ILLNESS: An 81-year-old female with past medical history of hypertension, diabete s, peripheral vascular disease and CKD stage IIIB/IV, admitted with right leg pain thought to be due to peripheral vascular disease. Nephrology consulted for renal insufficiency. The patient today reports that pain is better controlled. Tolerating diet. Denies any shortness of breath. PHYSICAL EXAMINATION: VITAL SIGNS: This afternoon, blood pressure 169/75, heart rate 97, respirations 20, temperature 98.6 , O2 sat 95% on room air. GENERAL: No distress, lying comfortably in bed. HEENT: Moist mucous membranes. Nonicteric. RESPIRATORY: Lungs with mild inspiratory rales bilaterally. No rhonchi, no wheezes, no respiratory distress. HEART: Systolic murmur present. No rubs, no gallops. GASTROINTESTINAL: Abdomen soft, nontender, nondistended. GENITOURINARY: Cross in place. EXTREMITIES: No leg edema. SKIN: Warm, no cyanosis. PSYCHIATRIC: Normal mood, normal affect. LABORATORY DATA: This morning, WBC 8.5, hemoglobin 9.5, hematocrit 29.4, platelets 307. Chemistry p renuka: Sodium 137, potassium 4.2, chloride 108, bicarbonate 20, BUN 25, creatinine 1.9, glucose of 10 8. Calcium 8.2, phosphorus 2.8, albumin 2.7. ASSESSMENT: Chronic kidney disease stage IV. Renal function improved with gentle IV fluids since ad mission. The patient had previously been on diuretics with Lasix 40 mg p.o. daily. The patient like ly has underlying renovascular disease and is particularly susceptible to hemodynamic changes, includ ing diuresis. Etiology of renal failure still needs further workup, especially with elevated serum f ree light chains with predominance of kappa free light chain. The patient has mostly non-albumin prot ein with approximately 500 mg in 24-hour urine and minimal amount of micro albuminuria. PLAN: 1. We will follow the patient as outpatient. Discussed with primary substance abuse counselor regarding the possibility of bone marrow and/or kidney biopsy to look for plasma cell dyscrasia with immunoglobulin in th e kidney. We will repeat free light chain assay with renal function having improved. Will also obta in renal ultrasound, bladder ultrasound with postvoid residual measurement as the possibility of refl ux uropathy exists as well. 2. Hypertension. Blood pressure had been relatively well controlled during this admission. Current ly on hydralazine 100 mg t.i.d., losartan 50 mg daily. Discontinuing IV fluids will help. We will a lso restart patient back on small dose of Lasix 20 mg daily due to pulmonary hypertension that was se en on previous echo. 3. Peripheral vascular disease. The patient with likely multilevel atherosclerotic disease that is affecting kidney as well. Needs to be on maximal dose of high potency statin. 4. Anemia. Hemoglobin relatively stable. Anemia secondary to iron deficiency as well as chronic di sease, started on p.o. iron, continue. 5. UTI. The patient has a long history of UTI. It should be noted that frequent UTIs can lead to re flux that can cause some degree of kidney damage. The patient to have Cross removed today. We will c omplete antibiotics at rehab facility. We will obtain ultrasound of bladder as outpatient, as kristen rush above. Charles Alberto MD cc: [id number] TT: 08/14/2016 20:29:18 Confirmation # [id number] Dictation # [id number] ln
== END 2016-08-14 18:55 | DRG 300 ==
LOC: C.ER 12:41 → C.9E 15:43 → C.3T 16:07 → C.5T 08-13 10:49
PROVIDERS: ADMIT Hospitalist; ATTEND Hospitalist
DX: E11.51 Type 2 diabetes mellitus with diabetic peripheral angiopathy without gangrene (principal); N17.9 Acute kidney failure, unspecified; N18.4 Chronic kidney disease, stage 4 (severe); E11.22 Type 2 diabetes mellitus with diabetic chronic kidney disease; N39.0 Urinary tract infection, site not specified; I12.9 Hypertensive chronic kidney disease with stage 1 through stage 4 chronic kidney disease, or unspecified chronic kidney disease; I25.10 Atherosclerotic heart disease of native coronary artery without angina pectoris; D63.1 Anemia in chronic kidney disease; E78.5 Hyperlipidemia, unspecified; M81.0 Age-related osteoporosis without current pathological fracture; R32 Unspecified urinary incontinence; H54.11 Blindness, right eye, low vision left eye; Z94.7 Corneal transplant status; Z79.899 Other long term (current) drug therapy; Z87.891 Personal history of nicotine dependence; Z90.710 Acquired absence of both cervix and uterus; Z95.5 Presence of coronary angioplasty implant and graft

== ENCOUNTER 2016-08-31 22:08 | Emergency (ER) | payer MEDICARE, MEDICAID ==
[2016-08-31 22:08] VITALS: BMI 27.8
[2016-08-31 22:27] VITALS: TEMP 97.6
--- NOTE | 2016-08-31 23:26 | C.PDOC ---
Chief Complaint (Nursing): Abdominal Pain Past Medical History Vital Signs: Last Vital Signs Temp 97.6 F 08/31/16 22:19 Pulse 76 08/31/16 22:19 Resp 14 08/31/16 22:19 BP 160/68 H 08/31/16 22:19 Pulse Ox 98 08/31/16 23:26 - Medical History PMH: Arthritis, Asthma, Gastritis, HTN, Hypercholesterolemia, Osteoporosis, End Stage Renal Disease Denies: Chronic Kidney Disease Surgical History: Coronary Stent (2016) - [facility] Procedures DESTRUCTION OF ASCENDING COLON, ENDO (01/19/16) DESTRUCTION OF DUODENUM, ENDO (01/19/16) DILATION OF RIGHT POSTERIOR TIBIAL ARTERY, PERC APPROACH (04/18/15) EXCISION OF CECUM, ENDO (06/29/15) EXCISION OF STOMACH, ENDO, DIAGN (06/29/15) EXCISION OF TRANSVERSE COLON, ENDO, DIAGN (06/29/15) INSERTION OF INFUSION DEV INTO SUP VENA CAVA, PERC APPROACH (06/29/15) INTRODUCE OF OTH THROMBOLYTIC INTO PERIPH ART, PERC APPROACH (04/18/15) PLAIN RADIOGRAPHY OF AORTA, BI LE ART USING L OSM CONTRAST (04/18/15) TRANSFUSE NONAUT FROZEN PLASMA IN PERIPH VEIN, PERC (01/19/16) TRANSFUSE NONAUT PLATELETS IN PERIPH VEIN, PERC (01/19/16) TRANSFUSE NONAUT RED BLOOD CELLS IN PERIPH VEIN, PERC (01/19/16) ULTRASONOGRAPHY OF FEMORAL ARTERY (04/18/15) Family History: States: Unknown Family Hx - Social History Hx Tobacco Use: No Hx Alcohol Use: No Hx Substance Use: No - Immunization History Hx Influenza Vaccination: Yes (03/2016) Hx Pneumococcal Vaccination: No ED Course And Treatment O2 Sat by Pulse Oximetry: 98 Progress Note: 2320H Repeat digital rxtraction of feces done after fleet enema. Patient subsequently moved her bowel and defecated hard feces with manual extraction. States she feels better, no longer having abdominal pain. Reevaluation Time: 23:26 (improved.) Reassessment Condition: Improved Disposition Counseled Patient/Family Regarding: Diagnosis - Disposition Referrals: [facility] at [facility] [Outside] Disposition: HOME/ ROUTINE Disposition Time: 23:27 Condition: IMPROVED Prescriptions: Docusate Sodium [Colace] 100 mg PO BID #60 capsule Instructions: Constipation (ED) Forms: Gen Discharge Inst Amharic Print Language: MOLDOVAN - ARACELIS Present On Arrival: None - Clinical Impression Clinical Impression: Constipation
--- NOTE | 2016-08-31 23:40 | C.PDOC ---
History Of Present Illness A 81 y/o female brought in by family for abdominal pain and lack of BM for 5 days. Pt denies nausea, vomiting, vaginal bleeding or discharge, dysuria, hematuria, fever, chills, or any other complaints. Time Seen by Provider: 08/31/16 22:37 Chief Complaint (Nursing): Abdominal Pain History Per: Patient History/Exam Limitations: no limitations Onset/Duration Of Symptoms: Days Current Symptoms Are (Timing): Still Present Severity: Mild Location Of Pain/Discomfort: Suprapubic Radiation Of Pain To:: None Associated Symptoms: Constipation. denies: Fever, Chills, Nausea, Vomiting Recent travel outside of the [place]: No Additional History Per: Patient Abnormal Vaginal Bleeding: No Past Medical History Reviewed: Historical Data, Nursing Documentation, Vital Signs Vital Signs: Last Vital Signs Temp 97.6 F 08/31/16 22:19 Pulse 76 08/31/16 22:19 Resp 14 08/31/16 22:19 BP 160/68 H 08/31/16 22:19 Pulse Ox 98 08/31/16 23:43 - Medical History PMH: Arthritis, Asthma, Gastritis, HTN, Hypercholesterolemia, Osteoporosis, End Stage Renal Disease Denies: Chronic Kidney Disease Surgical History: Coronary Stent (2016) - [facility] Procedures DESTRUCTION OF ASCENDING COLON, ENDO (01/19/16) DESTRUCTION OF DUODENUM, ENDO (01/19/16) DILATION OF RIGHT POSTERIOR TIBIAL ARTERY, PERC APPROACH (04/18/15) EXCISION OF CECUM, ENDO (06/29/15) EXCISION OF STOMACH, ENDO, DIAGN (06/29/15) EXCISION OF TRANSVERSE COLON, ENDO, DIAGN (06/29/15) INSERTION OF INFUSION DEV INTO SUP VENA CAVA, PERC APPROACH (06/29/15) INTRODUCE OF OTH THROMBOLYTIC INTO PERIPH ART, PERC APPROACH (04/18/15) PLAIN RADIOGRAPHY OF AORTA, BI LE ART USING L OSM CONTRAST (04/18/15) TRANSFUSE NONAUT FROZEN PLASMA IN PERIPH VEIN, PERC (01/19/16) TRANSFUSE NONAUT PLATELETS IN PERIPH VEIN, PERC (01/19/16) TRANSFUSE NONAUT RED BLOOD CELLS IN PERIPH VEIN, PERC (01/19/16) ULTRASONOGRAPHY OF FEMORAL ARTERY (04/18/15) Family History: States: Unknown Family Hx - Social History Hx Tobacco Use: No Hx Alcohol Use: No Hx Substance Use: No - Immunization History Hx Influenza Vaccination: Yes (03/2016) Hx Pneumococcal Vaccination: No Review Of Systems Except As Marked, All Systems Reviewed And Found Negative. Constitutional: Negative for: Fever, Chills Gastrointestinal: Positive for: Abdominal Pain, Constipation. Negative for: Nausea, Vomiting Genitourinary: Negative for: Dysuria, Hematuria, Vaginal Discharge, Vaginal Bleeding Physical Exam - Physical Exam Appears: Non-toxic, In Acute Distress (Moderate distress due to pain) Skin: Warm, Dry Head: Atraumatic, Normacephalic Eye(s): bilateral: Normal Inspection Chest: Symmetrical Cardiovascular: Rhythm Regular Respiratory: Normal Breath Sounds, No Accessory Muscle Use, No Rales, No Rhonchi , No Wheezing Gastrointestinal/Abdominal: Soft, Tenderness (Mild hypogastric area tenderness) , No Guarding, No Rebound Neurological/Psych: Oriented x3, Normal Speech, Normal Cognition, Other (No focal deficit) ED Course And Treatment O2 Sat by Pulse Oximetry: 98 (RA) Pulse Ox Interpretation: Normal Progress Note: 2320H Repeat digital rxtraction of feces done after fleet enema. Patient subsequently moved her bowel and defecated hard feces with manual extraction. States she feels better, no longer having abdominal pain. Reevaluation Time: 23:26 (Improved) Reassessment Condition: Improved Medical Decision Making Medical Decision Making: Impression: A 81 y/o female brought in by family for abdominal pain and lack of BM for 5 days. Plans: Fleet enema IV fluids Reassess Disposition - Disposition Referrals: [facility] at [facility] [Outside] Disposition: HOME/ ROUTINE Disposition Time: 23:27 Condition: IMPROVED Prescriptions: Docusate Sodium [Colace] 100 mg PO BID #60 capsule Instructions: Constipation (ED) Forms: Gen Discharge Inst Armenian Print Language: MOHAWK - Clinical Impression Clinical Impression: Constipation - Scribe Statement The provider has reviewed the documentation as recorded by the Scribe Jo loera All medical record entries made by the Teresaiblay were at my direction and personally dictated by me. I have reviewed the chart and agree that the record accurately reflects my personal performance of the history, physical exam, medical decision making, and the department course for this patient. I have also personally directed, reviewed, and agree with the discharge instructions and disposition.
[2016-09-01 00:24] VITALS: BP 137/75; PULSE 74; RESP 20; O2SAT 100
== END 2016-09-01 00:23 | disposition home or self-care (01) ==
LOC: C.ER 22:08
DX: K59.00 Constipation, unspecified (principal)

== ENCOUNTER 2016-09-11 09:27 | Inpatient (IN) | payer MEDICARE, MEDICAID ==
[2016-09-11 09:27] VITALS: BMI 27.8
--- NOTE | 2016-09-11 10:02 | C.PDOC ---
History Of Present Illness 81-year-old female, PMHx includes Arthritis, Asthma, Gastritis, Hypertension, Hypercholesterolemia, and Osteoporosis, presents to the emergency department, accompanied by family, with complaints of recurring GI bleed, that is ongoing since last night. patient has been experiencing bright red blood per rectum with clots. She had four episodes, and last one was just prior to arrival. No rectal/abdominal pain. No vomiting, fevers, chest pain or shortness of breath. Family states patient is currently at baseline (alert and oriented x2). PMD Ladan Nicole MD. Time Seen by Provider: 09/11/16 09:45 Chief Complaint (Nursing): GI Problem History Per: Family History/Exam Limitations: no limitations Onset/Duration Of Symptoms: Days Current Symptoms Are (Timing): Still Present Number Of Bleeding Episodes: Multiple: (4) Amount of Blood Loss: Medium Severity: Moderate Past Medical History Reviewed: Historical Data, Nursing Documentation, Vital Signs Vital Signs: Last Vital Signs Temp 98.4 F 09/11/16 16:00 Pulse 80 09/11/16 16:00 Resp 18 09/11/16 16:00 BP 193/73 H 09/11/16 16:00 Pulse Ox 100 09/11/16 16:00 - Medical History PMH: Arthritis, Asthma, Gastritis, HTN, Hypercholesterolemia, Osteoporosis, End Stage Renal Disease Denies: Chronic Kidney Disease Surgical History: Coronary Stent (2016) - [facility] Procedures DESTRUCTION OF ASCENDING COLON, ENDO (01/19/16) DESTRUCTION OF DUODENUM, ENDO (01/19/16) DILATION OF RIGHT POSTERIOR TIBIAL ARTERY, PERC APPROACH (04/18/15) EXCISION OF CECUM, ENDO (06/29/15) EXCISION OF STOMACH, ENDO, DIAGN (06/29/15) EXCISION OF TRANSVERSE COLON, ENDO, DIAGN (06/29/15) INSERTION OF INFUSION DEV INTO SUP VENA CAVA, PERC APPROACH (06/29/15) INTRODUCE OF OTH THROMBOLYTIC INTO PERIPH ART, PERC APPROACH (04/18/15) PLAIN RADIOGRAPHY OF AORTA, BI LE ART USING L OSM CONTRAST (04/18/15) TRANSFUSE NONAUT FROZEN PLASMA IN PERIPH VEIN, PERC (01/19/16) TRANSFUSE NONAUT PLATELETS IN PERIPH VEIN, PERC (01/19/16) TRANSFUSE NONAUT RED BLOOD CELLS IN PERIPH VEIN, PERC (01/19/16) ULTRASONOGRAPHY OF FEMORAL ARTERY (04/18/15) Family History: States: No Known Family Hx - Social History Hx Tobacco Use: No Hx Alcohol Use: No Hx Substance Use: No - Immunization History Hx Influenza Vaccination: Yes (03/2016) Hx Pneumococcal Vaccination: No Review Of Systems Constitutional: Negative for: Fever, Chills Cardiovascular: Negative for: Chest Pain, Palpitations Respiratory: Negative for: Shortness of Breath Gastrointestinal: Positive for: Hematochezia (BRBPR). Negative for: Nausea, Vomiting, Abdominal Pain, Melena Physical Exam - Physical Exam Appears: Non-toxic, No Acute Distress, Other (Comfortable) Skin: Warm, Dry, No Rash Head: Atraumatic, Normacephalic Eye(s): bilateral: Normal Inspection, PERRL, EOMI Nose: Normal Oral Mucosa: Moist Lips: Normal Appearing Neck: Normal ROM Cardiovascular: Rhythm Regular, No Murmur Respiratory: Normal Breath Sounds, No Accessory Muscle Use Gastrointestinal/Abdominal: Soft, No Tenderness, No Guarding, No Rebound Extremity: Normal ROM ED Course And Treatment - Laboratory Results Result Diagrams: 09/11/16 12:06 09/11/16 10:50 ECG: Interpreted By Wv, Viewed By Wv ECG Rhythm: Sinus Rhythm ECG Interpretation: No Acute Changes Rate From EC O2 Sat by Pulse Oximetry: 98 Pulse Ox Interpretation: Normal - Radiology CXR: Interpreted by Me CXR Interpretation: Yes: No Acute Disease (ncp), Other (Central vascular congestion. Small left pleural effusion. Left basilar atelectasis or infiltrate. ) Progress - Re-Evaluation Re-evaluation Note: 09/11/16 12:42 APPEARS COMFORTABLE NAD D/W DR MAYER C/F PMD WILL ADMIT 09/11/16 12:44 +BLACK BM - Data Reviewed Data Reviewed: Lab, Old records Medical Decision Making Medical Decision Making: Prior Visits. Notes and records from previous visits were reviewed. Patient had colonoscopy in 01/[address] Mcguire, which showed diverticulosis. Plan: * Type and Screen * EKG * CMP * CBC, PTT, PT * Urinalysis * Reassess and Disposition. Disposition Counseled Patient/Family Regarding: Studies Performed, Diagnosis - Disposition Disposition: HOSPITALIZED Disposition Time: 12:43 Condition: STABLE - POA Present On Arrival: Poor Glycemic Control - Clinical Impression Clinical Impression: Rectal bleed Decision To Admit - Pt Status Changed To: Hospital Disposition Of: Inpatient - Admit Certification Admit to Inpatient:: After my assessment, the patient will require hospitalization for at least two midnights. This is because of the severity of symptoms shown, intensity of services needed, and/or the medical risk in this patient being treated as an outpatient. - InPatient: Physician Admission Certification: I certify that this patient requires 2 or more midnights of care for the following reason:: SEE NOTE - . Bed Request Type: Telemetry Admitting Physician: Chai Mayer Patient Diagnosis: Rectal bleed
[2016-09-11 11:08] LABS: ALBUMIN 3.1 g/dL (3.5-5.0)
[2016-09-11 11:11] LABS: ALB/GLOB RATIO 0.9 (1.0-2.1)
[2016-09-11 11:12] LABS: CALCIUM 8.8 mg/dl (8.6-10.4)
[2016-09-11 12:10] LABS: BASO # 0.1 K/uL (0.0-0.2); BASO % 0.8 % (0.0-2.0); EOS # 0.6 K/uL (0.0-0.7); EOS % 6.6 % (0.0-4.0); HEMOGLOBIN 10.5 g/dL (11.0-16.0); LYMPH # 1.2 K/uL (1.0-4.3); LYMPH % 11.8 % (20.0-40.0); MEAN CORPUSCULAR HEMOGLOBIN 29.9 pg (27.0-31.0); MEAN CORPUSCULAR HGB CONC 32.3 g/dL (33.0-37.0); MEAN PLATELET VOLUME 7.6 fL (7.2-11.7); MONO # 1.4 K/uL (0.0-0.8); NEUT # 6.5 K/uL (1.8-7.0); NEUT % 66.8 % (50.0-75.0); NRBC % 0.1 % (0.0-2.0); RBC 3.51 Mil/uL (3.80-5.20); RED CELL DISTRIBUTION WIDTH 15.9 % (11.5-14.5); WHITE BLOOD COUNT 9.7 K/uL (4.8-10.8)
[2016-09-11 12:11] LABS: MEAN CELL VOLUME 92.5 fL (81.0-99.0)
--- NOTE | 2016-09-11 12:17 | RAD ---
HISTORY: GI Bleeding COMPARISON: Chest x-ray performed 08/14/16 TECHNIQUE: Chest, one view. FINDINGS: Examination limited by habitus and patient obliquity. LUNGS: Central vascular congestion. Small left pleural effusion. Left basilar atelectasis or infiltrate. No definite pneumothorax. No focal consolidation. Please note that chest x-ray has limited sensitivity for the detection of pulmonary masses. CARDIOVASCULAR: Borderline cardiomegaly. Atherosclerotic calcification of the aorta. OSSEOUS STRUCTURES: Degenerative changes. Osseous demineralization. VISUALIZED UPPER ABDOMEN: Unremarkable. OTHER FINDINGS: None. IMPRESSION: Central vascular congestion. Small left pleural effusion. Left basilar atelectasis or infiltrate. Study has been marked for PA review.
[2016-09-11] MEDS ORDERED: Albuterol HFA 90 mcg/actuation (8 g) IH PRN (17:40)
[2016-09-11] MEDS: Sodium Chloride 0.9% 1,000 ML IV SCH (17:44)
--- NOTE | 2016-09-11 22:25 | CP.PCM.CON ---
History of Present Illness - History of Present Illness History of Present Illness: Patient seen and evaluated Admitted for GI bleeding No cardiac events noted Past Patient History - Infectious Disease Hx of Infectious Diseases: None - Tetanus Immunizations Tetanus Immunization: Unknown - Past Medical History & Family History Past Medical History?: Yes - Past Social History Smoking Status: Former Smoker - CARDIAC Hx Hypercholesterolemia: Yes Hx Hypertension: Yes - PULMONARY Hx Asthma: Yes - NEUROLOGICAL Hx Neurological Disorder: No - HEENT Hx HEENT Problems: Yes Hx Blind: Yes Other/Comment: [employer]. 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 - RENAL Hx Chronic Kidney Disease: No - ENDOCRINE/METABOLIC Hx Diabetes Mellitus Type 2: Yes - HEMATOLOGICAL/ONCOLOGICAL Hx Blood Disorders: Yes Hx Blood Transfusions: Yes Hx Blood Transfusion Reaction: No - INTEGUMENTARY Hx Dermatological Problems: No - MUSCULOSKELETAL/RHEUMATOLOGICAL Hx Arthritis: Yes Hx Osteoporosis: Yes - GASTROINTESTINAL Hx Gastritis: Yes - GENITOURINARY/GYNECOLOGICAL Hx Genitourinary Disorders: No Other/Comment: s/p hysterectomy as per son done >20 yrs ago - PSYCHIATRIC Hx Substance Use: No - SURGICAL HISTORY Hx Coronary Stent: Yes (2015) - ANESTHESIA Hx Anesthesia: Yes Hx Anesthesia Reactions: No Meds Allergies/Adverse Reactions: Allergies Allergy/AdvReac Type Severity Reaction Status Date / Time No Known Allergies Allergy Verified 09/11/16 09:36 - Medications Medications: Current Medications Acetaminophen (Tylenol 325mg Tab) 650 mg PO Q6 PRN PRN Reason: Pain, Mild (1-3) Albuterol (Ventolin Hfa 90 Mcg/Actuation (8 G)) 1 puff IH RQ6 PRN PRN Reason: Shortness of Breath Famotidine (Pepcid) 20 mg PO DAILY [facility] Hydralazine HCl (Apresoline) 100 mg PO TID [facility] Last Admin: 09/11/16 19:20 Dose: 100 mg Sodium Chloride (Sodium Chloride 0.9%) 1,000 mls @ 75 mls/hr IV .[id number] [facility] Last Admin: 09/11/16 17:44 Dose: 75 mls/hr Losartan Potassium (Cozaar) 50 mg PO DAILY [facility] Last Admin: 09/11/16 19:20 Dose: 50 mg Rosuvastatin Calcium (Crestor) 20 mg PO HS [facility] Results - Vital Signs Recent Vital Signs: Last Vital Signs Temp 98.4 F 09/11/16 16:00 Pulse 80 09/11/16 16:00 Resp 18 09/11/16 16:00 BP 193/73 H 09/11/16 16:00 Pulse Ox 98 09/11/16 18:33 - Labs Result Diagrams: 09/11/16 12:06 09/11/16 10:50 Labs: Laboratory Results - last 24 hr 09/11/16 09/11/16 09/11/16 17:16 18:41 21:40 POC Glucose (mg/dL) 110 112 H Stool Occult Blood Positive H
--- NOTE | 2016-09-11 23:01 | CP.PCM.HP ---
Addendum entered and electronically signed by Nieves Cleary 09/11/16 23:24 : Cardiology Consult: Dr. Piña Original Note: <Nieves Cleary. - Last Filed: 09/11/16 22:49> History of Present Illness - History of Present Illness History of Present Illness: CC: GI Bleed, rectal bleeding HPI: 89 year old female with a past medical history of PVD, DM, HTN, hyperlipidemia, and an OK, presents with rectal bleeding for 2 days. The patient 's son, Emory, was at bedside and translated for his mother. The patient had 4 bloody dark bowel movements yesterday and two prior to arriving at the hospital. The patient has no pain associated with the rectal bleeding. Patient had a similar episode in 01/2016, which she then stopped taking her prescribed medications, aspirin, plavix, and cilostazol. At that time, her rectal bleeding stopped, and she did not resume those medications. During her hospitalization in 01/2016 for rectal bleeding, the patient had a colonoscopy which showed diverticulosis. Currently, the patient reports feeling weak, fatigued, occasionally short of breath, and has constant leg pain secondary to PVD. Patient denies chest pain, palpitations, abdominal pain, fevers, headaches, dizziness, nausea, vomiting, and dysuria. PMHx: PVD, DM, HTN, hyperlipidemia, OK (2015), GI Bleed (2015) PSx: Valve replacement (2016), Corneal transplant (2014) SocHx: denies tobacco, alcohol, and drug use. Lives in an apartment with family. Allergies: NKDA Medications: Pantoprazole 40mg; Lasix 20mg PO BID, Losartan 50mg PO daily, ASA 81mg PO daily, Crestor 20mg PO HS, Vitamin D 1,000 units daily, Hydralazine 100mg PO TID, Ferrous sulfate 325mg PO BID. Present on Admission - Present on Admission Any Indicators Present on Admission: No Review of Systems - Constitutional Constitutional: Fatigue, Weakness. absent: Fever - EENT Eyes: Change in Vision, Other Visual Disturbances (blind in right eye; left corneal transplant) Ears: absent: Dizziness Nose/Mouth/Throat: absent: Sore Throat - Cardiovascular Cardiovascular: Dyspnea, Palpitations. absent: Chest Pain, Leg Edema, Lightheadedness - Respiratory Respiratory: Dyspnea. absent: Cough - Gastrointestinal Gastrointestinal: Diarrhea, Hematochezia. absent: Abdominal Pain, Nausea, Vomiting - Genitourinary Genitourinary: absent: Dysuria, Urinary Frequency - Musculoskeletal Musculoskeletal: absent: Back Pain - Integumentary Integumentary: absent: Swelling, Unusual Bruising - Neurological Neurological: Weakness. absent: Dizziness, Headaches - Endocrine Endocrine: Fatigue. absent: Palpitations Past Patient History - Infectious Disease Hx of Infectious Diseases: None - Tetanus Immunizations Tetanus Immunization: Unknown - Past Medical History & Family History Past Medical History?: Yes - Past Social History Smoking Status: Former Smoker - CARDIAC Hx Hypercholesterolemia: Yes Hx Hypertension: Yes - PULMONARY Hx Asthma: Yes - NEUROLOGICAL Hx Neurological Disorder: No - HEENT Hx HEENT Problems: Yes Hx Blind: Yes Other/Comment: [employer]. 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 - RENAL Hx Chronic Kidney Disease: No - ENDOCRINE/METABOLIC Hx Diabetes Mellitus Type 2: Yes - HEMATOLOGICAL/ONCOLOGICAL Hx Blood Disorders: Yes Hx Blood Transfusions: Yes Hx Blood Transfusion Reaction: No - INTEGUMENTARY Hx Dermatological Problems: No - MUSCULOSKELETAL/RHEUMATOLOGICAL Hx Arthritis: Yes Hx Osteoporosis: Yes - GASTROINTESTINAL Hx Gastritis: Yes - GENITOURINARY/GYNECOLOGICAL Hx Genitourinary Disorders: No Other/Comment: s/p hysterectomy as per son done >20 yrs ago - PSYCHIATRIC Hx Substance Use: No - SURGICAL HISTORY Hx Coronary Stent: Yes (2015) - ANESTHESIA Hx Anesthesia: Yes Hx Anesthesia Reactions: No Meds Allergies/Adverse Reactions: Allergies Allergy/AdvReac Type Severity Reaction Status Date / Time No Known Allergies Allergy Verified 09/11/16 09:36 Physical Exam - Constitutional Appears: No Acute Distress - Head Exam Head Exam: NORMAL INSPECTION, NORMOCEPHALIC - Eye Exam Eye Exam: absent: Normal appearance Additional comments: right eye blind, left eye corneal transplant - ENT Exam ENT Exam: Mucous Membranes Moist - Neck Exam Neck exam: Positive for: Normal Inspection - Respiratory Exam Respiratory Exam: Clear to Auscultation Bilateral, NORMAL BREATHING PATTERN. absent: Rhonchi, Wheezes - Cardiovascular Exam Cardiovascular Exam: +S1, +S2 - GI/Abdominal Exam GI & Abdominal Exam: Normal Bowel Sounds, Soft. absent: Tenderness - Rectal Exam Rectal Exam: Black Stool - Extremities Exam Extremities exam: Positive for: normal inspection. Negative for: calf tenderness, pedal edema - Neurological Exam Neurological exam: Alert, Oriented x3 - Psychiatric Exam Psychiatric exam: Normal Affect, Normal Mood - Skin Skin Exam: Dry, Intact, Normal Color, Warm Results - Vital Signs Recent Vital Signs: Last Vital Signs Temp 98.4 F 09/11/16 16:00 Pulse 80 09/11/16 16:00 Resp 18 09/11/16 16:00 BP 193/73 H 09/11/16 16:00 Pulse Ox 98 09/11/16 18:33 - Labs Result Diagrams: 09/11/16 12:06 09/11/16 10:50 Labs: Laboratory Results - last 24 hr 09/11/16 09/11/16 09/11/16 17:16 18:41 21:40 POC Glucose (mg/dL) 110 112 H Stool Occult Blood Positive H Assessment & Plan (1) Rectal bleed Assessment and Plan: Fecal Occult: Positive Consult GI- Dr. Mcguire, help appreciated Colonscopy from 2016- diverticulosis Status: Acute (2) CKD (chronic kidney disease) stage 3, GFR 30-59 ml/min Assessment and Plan: Monitor GFR, BUN, Cr GFR on 17: 33 BUN: 26 Cr: 1.8 Consult nephrology- Dr. Green, help appreciated. Status: Acute (3) Hyperlipemia Assessment and Plan: Crestor 20mg PO HS Lipid panel: f/u Status: Acute (4) Peripheral vascular disease Assessment and Plan: C/I for SCDs Stopped taking cilostazol in 01/2016 due to GI bleed Status: Acute Priority: High (5) Diabetes mellitus Assessment and Plan: HgbA1c: f/u Accuchecks Monitor Status: Chronic (6) HTN (hypertension) Assessment and Plan: Monitor BP Hydralazine 100mg PO TID Losartan 50mg PO daily BP on admission 137/75 Status: Chronic (7) History of heart valve replacement Assessment and Plan: Valve replacement in 2016 Consult Cardiology- Dr. Donald, help appreciated. Status: Acute (8) Prophylactic measure Assessment and Plan: C/I to SCDs due to PVD Pepcid 20mg PO daily Liquid diet Activity as tolerated Accuchecks Status: Acute <Chai Mayer M - Last Filed: 09/12/16 09:19> Results - Vital Signs Recent Vital Signs: Last Vital Signs Temp 98.7 F 09/12/16 08:58 Pulse 89 09/12/16 08:58 Resp 17 09/12/16 08:58 BP 117/67 09/12/16 08:58 Pulse Ox 98 09/12/16 08:58 - Labs Result Diagrams: 09/11/16 12:06 09/11/16 10:50 Labs: Laboratory Results - last 24 hr 09/11/16 09/11/16 09/11/16 17:16 18:41 21:40 POC Glucose (mg/dL) 110 112 H Stool Occult Blood Positive H 09/12/16 06:23 POC Glucose (mg/dL) 103 Stool Occult Blood Attending/Attestation - Attestation I have personally seen and examined this patient.: Yes I have fully participated in the care of the patient.: Yes I have reviewed all pertinent clinical information: Yes Notes (Text): 09/12/16 09:19 Patient was seen and examined at bedside with the resident Patient came in for GI bleed No active bleeding at this time We will hold antiplatelet therapy We will request cardiology and GI evaluation for the patient I discussed the plan of care with the resident and agree with the assessment and plan by the resident
--- NOTE | 2016-09-12 07:34 | CP.PCM.CON ---
History of Present Illness - History of Present Illness History of Present Illness: This is an 81 year old woman admitted with rectal bleeding. Patient is known to me from a previous admissions 06/29/2015 and 01/19/2016. She has a history of severe PAD and is treated with aspirin, plavix, and pletal. In June of last year, she presented with profuse rectal bleeding which was bright red in color. On 06/30/2015, she had: EGD which showed hiatal hernia, angiodysplasia of the stomach and possible atrophic gastritis; and colonoscopy which showed polyps and diverticulosis. It was thought that the bleeding was due to diverticulosis. She was readmitted with rectal bleeding on 01/19/2016. At that time, she had: EGD which showed hiatal hernia, hemostatic clip in the gastric body, two small angiodysplastic lesions in the second part of the duodenum which were cauterized with the bipolar probe; and colonoscopy which showed diverticulosis, a small polyp in the ascending colon which was not removed, and a small angiodysplasia in the ascending colon which was cauterized using the APC. Plan at that time was for capsule endoscopy of the small bowel. Patient presented to the ER yesterday with complaints of rectal bleeding, dark red blood, on six occasions over the day prior to admission. She denies having abdominal pain, nausea and vomiting. She also complains of fatigue, shortness of breath and leg pain. Review of Systems - Review of Systems All systems: reviewed and no additional remarkable complaints except - Constitutional Constitutional: Fatigue, Weakness. absent: Fever - EENT Nose/Mouth/Throat: absent: Sore Throat - Cardiovascular Cardiovascular: Dyspnea, Palpitations. absent: Chest Pain - Respiratory Respiratory: Dyspnea. absent: Cough - Gastrointestinal Gastrointestinal: Hematochezia. absent: Abdominal Pain, Nausea, Vomiting - Genitourinary Genitourinary: absent: Dysuria Past Patient History - Infectious Disease Hx of Infectious Diseases: None - Tetanus Immunizations Tetanus Immunization: Unknown - Past Medical History & Family History Past Medical History?: Yes - Past Social History Smoking Status: Former Smoker - CARDIAC Hx Hypercholesterolemia: Yes Hx Hypertension: Yes - PULMONARY Hx Asthma: Yes - NEUROLOGICAL Hx Neurological Disorder: No - HEENT Hx HEENT Problems: Yes Hx Blind: Yes Other/Comment: [employer]. 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 - RENAL Hx Chronic Kidney Disease: No - ENDOCRINE/METABOLIC Hx Diabetes Mellitus Type 2: Yes - HEMATOLOGICAL/ONCOLOGICAL Hx Blood Disorders: Yes Hx Blood Transfusions: Yes Hx Blood Transfusion Reaction: No - INTEGUMENTARY Hx Dermatological Problems: No - MUSCULOSKELETAL/RHEUMATOLOGICAL Hx Arthritis: Yes Hx Osteoporosis: Yes - GASTROINTESTINAL Hx Gastritis: Yes - GENITOURINARY/GYNECOLOGICAL Hx Genitourinary Disorders: No Other/Comment: s/p hysterectomy as per son done >20 yrs ago - PSYCHIATRIC Hx Substance Use: No - SURGICAL HISTORY Hx Coronary Stent: Yes (2015) - ANESTHESIA Hx Anesthesia: Yes Hx Anesthesia Reactions: No Meds Allergies/Adverse Reactions: Allergies Allergy/AdvReac Type Severity Reaction Status Date / Time No Known Allergies Allergy Verified 09/11/16 09:36 - Medications Medications: Current Medications Acetaminophen (Tylenol 325mg Tab) 650 mg PO Q6 PRN PRN Reason: Pain, Mild (1-3) Albuterol (Ventolin Hfa 90 Mcg/Actuation (8 G)) 1 puff IH RQ6 PRN PRN Reason: Shortness of Breath Famotidine (Pepcid) 20 mg PO DAILY [facility] Hydralazine HCl (Apresoline) 100 mg PO TID [facility] Last Admin: 09/11/16 19:20 Dose: 100 mg Sodium Chloride (Sodium Chloride 0.9%) 1,000 mls @ 75 mls/hr IV .[id number] [facility] Last Admin: 09/11/16 17:44 Dose: 75 mls/hr Losartan Potassium (Cozaar) 50 mg PO DAILY [facility] Last Admin: 09/11/16 19:20 Dose: 50 mg Rosuvastatin Calcium (Crestor) 20 mg PO HS [facility] Last Admin: 09/11/16 23:26 Dose: 20 mg Physical Exam - Constitutional Appears: No Acute Distress - Head Exam Head Exam: ATRAUMATIC, NORMOCEPHALIC - Neck Exam Neck exam: Negative for: Lymphadenopathy, Thyromegaly - Respiratory Exam Respiratory Exam: NORMAL BREATHING PATTERN. absent: Rales, Rhonchi, Wheezes - Cardiovascular Exam Cardiovascular Exam: REGULAR RHYTHM, +S1, +S2. absent: Gallop, Rubs, Systolic Murmur - GI/Abdominal Exam GI & Abdominal Exam: Normal Bowel Sounds, Soft. absent: Mass, Organomegaly, Tenderness - Rectal Exam Rectal Exam: Deferred - Extremities Exam Extremities exam: Negative for: calf tenderness, pedal edema Results - Vital Signs Recent Vital Signs: Last Vital Signs Temp 99.1 F 09/12/16 04:39 Pulse 88 09/12/16 04:39 Resp 20 09/12/16 04:39 BP 187/78 H 09/12/16 05:43 Pulse Ox 95 09/12/16 04:39 - Labs Result Diagrams: 09/11/16 12:06 09/11/16 10:50 Labs: Laboratory Results - last 24 hr 09/11/16 09/11/16 09/11/16 17:16 18:41 21:40 POC Glucose (mg/dL) 110 112 H Stool Occult Blood Positive H 09/12/16 06:23 POC Glucose (mg/dL) 103 Stool Occult Blood Assessment & Plan (1) Gastrointestinal hemorrhage Assessment and Plan: Patient has recurrent GI bleeding. Will schedule EGD and repeat colonoscopy. After discharge, she should have capsule endoscopy. Status: Acute
[2016-09-12] MEDS ORDERED: Lactated Ringer's 500 ML IV ONE (08:32)
[2016-09-12] MEDS ORDERED: Propofol 10 mg/ml Inj (20 ML) ONE (08:32)
--- NOTE | 2016-09-12 10:29 | CP.PCM.CON ---
History of Present Illness - History of Present Illness History of Present Illness: 81 yo elderly HF with pmh/o htn x 15- 20 yrs, dm x 10 yrs, hld, s/p ? valve replacement 1 yr ago, diverticulosis, s/p rectal bleed x 1 last yr was BIB pt' s family with cc/o rectal bleed x 2 days, pt had a pink colored stool x5-6, c/ o feeling weak and tiered. pt denies any cp, palpitation, no naudsea, no vomitings, no abd. pain, no edema, no skin rash. renal consult is requested for evaluation of increased bun/cr. no recet weight loss or gain Review of Systems - Review of Systems All systems: reviewed and no additional remarkable complaints except - Constitutional Constitutional: As Per HPI, Weakness Additional comments: feeling tired - EENT Eyes: As Per HPI Ears: As Per HPI Nose/Mouth/Throat: As Per HPI - Breasts Breasts: As Per HPI - Cardiovascular Cardiovascular: As Per HPI - Respiratory Respiratory: As Per HPI - Gastrointestinal Gastrointestinal: As Per HPI Additional comments: rectal bleed - Genitourinary Genitourinary: As Per HPI - Reproductive: Female Reproductive:Female: As Per HPI - Menstruation Menstruation: Amenorrhea - Musculoskeletal Musculoskeletal: As Per HPI - Neurological Neurological: As Per HPI - Psychiatric Psychiatric: As Per HPI - Endocrine Endocrine: As Per HPI - Hematologic/Lymphatic Hematologic: As Per HPI Past Patient History - Infectious Disease Hx of Infectious Diseases: None - Tetanus Immunizations Tetanus Immunization: Unknown - Past Medical History & Family History Past Medical History?: Yes - Past Social History Smoking Status: Former Smoker Alcohol: None Drugs: Denies - CARDIAC Hx Hypercholesterolemia: Yes Hx Hypertension: Yes - PULMONARY Hx Asthma: Yes - NEUROLOGICAL Hx Neurological Disorder: No - HEENT Hx HEENT Problems: Yes Hx Blind: Yes Other/Comment: [employer]. 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 - RENAL Hx Chronic Kidney Disease: No - ENDOCRINE/METABOLIC Hx Diabetes Mellitus Type 2: Yes - HEMATOLOGICAL/ONCOLOGICAL Hx Blood Disorders: Yes Hx Blood Transfusions: Yes Hx Blood Transfusion Reaction: No - INTEGUMENTARY Hx Dermatological Problems: No - MUSCULOSKELETAL/RHEUMATOLOGICAL Hx Arthritis: Yes Hx Osteoporosis: Yes - GASTROINTESTINAL Hx Gastritis: Yes Other/Comment: rectal bleed, diverticulosis - GENITOURINARY/GYNECOLOGICAL Hx Genitourinary Disorders: No Other/Comment: s/p hysterectomy as per son done >20 yrs ago - PSYCHIATRIC Hx Substance Use: No - SURGICAL HISTORY Hx Coronary Stent: Yes (2016) - ANESTHESIA Hx Anesthesia: Yes Hx Anesthesia Reactions: No Meds Allergies/Adverse Reactions: Allergies Allergy/AdvReac Type Severity Reaction Status Date / Time No Known Allergies Allergy Verified 09/11/16 09:36 - Medications Medications: Current Medications Acetaminophen (Tylenol 325mg Tab) 650 mg PO Q6 PRN PRN Reason: Pain, Mild (1-3) Albuterol (Ventolin Hfa 90 Mcg/Actuation (8 G)) 1 puff IH RQ6 PRN PRN Reason: Shortness of Breath Famotidine (Pepcid) 20 mg PO DAILY [facility] Last Admin: 09/12/16 10:19 Dose: 20 mg Hydralazine HCl (Apresoline) 100 mg PO TID [facility] Last Admin: 09/12/16 10:19 Dose: 100 mg Sodium Chloride (Sodium Chloride 0.9%) 1,000 mls @ 75 mls/hr IV .[id number] [facility] Last Admin: 09/11/16 17:44 Dose: 75 mls/hr Losartan Potassium (Cozaar) 50 mg PO DAILY [facility] Last Admin: 09/12/16 10:18 Dose: 50 mg Pneumococcal Polyvalent Vaccine (Pneumovax 23 Vaccine) 0.5 ml IM .ONCE ONE Stop: 09/13/16 10:01 Polyethylene Glycol/Electrolytes (Golytely) 4,000 ml PO ONCE ONE Stop: 09/12/16 19:01 Rosuvastatin Calcium (Crestor) 20 mg PO [facility] Last Admin: 09/11/16 23:26 Dose: 20 mg Physical Exam - Constitutional Appears: Well, No Acute Distress - Head Exam Head Exam: ATRAUMATIC, NORMAL INSPECTION, NORMOCEPHALIC - Eye Exam Eye Exam: EOMI, Normal appearance Pupil Exam: NORMAL ACCOMODATION, PERRL - ENT Exam ENT Exam: Mucous Membranes Dry - Neck Exam Neck exam: Positive for: Full Rom, Normal Inspection - Respiratory Exam Respiratory Exam: Clear to Auscultation Bilateral, NORMAL BREATHING PATTERN - Cardiovascular Exam Cardiovascular Exam: REGULAR RHYTHM, +S1, +S2 - GI/Abdominal Exam GI & Abdominal Exam: Normal Bowel Sounds, Soft Additional comments: soft, tympanic, non tender, no guarding, no rigidity, no bruit, - Rectal Exam Rectal Exam: Deferred - Extremities Exam Extremities exam: Positive for: normal inspection - Neurological Exam Neurological exam: Alert, CN II-XII Intact, Oriented x3 - Psychiatric Exam Psychiatric exam: Normal Affect, Normal Mood - Skin Skin Exam: Normal Color, Warm Results - Vital Signs Recent Vital Signs: Last Vital Signs Temp 96.8 F L 09/12/16 09:28 Pulse 85 09/12/16 09:28 Resp 15 09/12/16 09:28 BP 165/72 H 09/12/16 09:28 Pulse Ox 99 09/12/16 09:28 - Labs Result Diagrams: 09/11/16 12:06 09/11/16 10:50 Labs: Laboratory Results - last 24 hr 09/11/16 09/11/16 09/11/16 17:16 18:41 21:40 POC Glucose (mg/dL) 110 112 H Stool Occult Blood Positive H 09/12/16 06:23 POC Glucose (mg/dL) 103 Stool Occult Blood Assessment & Plan - Assessment and Plan (Free Text) Assessment: 81 yo HF with pmh/o htn, dm, hld, s/p valvular surgery, diverticulosis, rectal bleed about 1 yr ago was admitted with rectal bleed x 2 days, increased bun/cr 1. CKD-3, pt had u/s of kidneys about 1 month ago, showed b/l small kidneys both kidneys re about 8.2-8.4 cm, 24 hr up about 300 mg, ckd is most likely sec to HTN nephrosclerosis 2. rectal bleed, most likely diverticular bleed, f/u with Gi, f/u cbc 8q hrs, check pth intcat level consider gentle iv hydration, check urine, lytes, osm, cr 3. HTN, bp is stable, c/w current meds
[2016-09-12 11:51] LABS: BASO # 0.1 K/uL (0.0-0.2); BASO % 0.6 % (0.0-2.0); EOS # 0.6 K/uL (0.0-0.7); EOS % 5.3 % (0.0-4.0); HEMOGLOBIN 10.3 g/dL (11.0-16.0); LYMPH % 9.2 % (20.0-40.0); MEAN CORPUSCULAR HEMOGLOBIN 30.1 pg (27.0-31.0); MEAN CORPUSCULAR HGB CONC 32.4 g/dL (33.0-37.0); MEAN PLATELET VOLUME 9.3 fL (7.2-11.7); MONO # 0.9 K/uL (0.0-0.8); MONO % 7.6 % (0.0-10.0); NEUT # 8.9 K/uL (1.8-7.0); NEUT % 77.3 % (50.0-75.0); NRBC % 0.3 % (0.0-2.0); PLATELET COUNT 236 K/uL (130-400); RBC 3.42 Mil/uL (3.80-5.20); RED CELL DISTRIBUTION WIDTH 15.8 % (11.5-14.5); WHITE BLOOD COUNT 11.4 K/uL (4.8-10.8)
[2016-09-12 12:01] LABS: ALBUMIN 3.3 g/dL (3.5-5.0)
[2016-09-12 12:04] LABS: ALB/GLOB RATIO 0.9 (1.0-2.1)
[2016-09-12 12:05] LABS: CALCIUM 9.1 mg/dl (8.6-10.4)
[2016-09-12 12:34] LABS: ANISOCYTOSIS SLIGHT; EOSINOPHIL 8 % (0-4); LYMPHOCYTE 8 % (20-40); MONOCYTE 1 % (0-10); NEUTROPHIL 83 % (50-75); PLATELET ESTIMATE NORMAL (NORMAL); TOTAL CELLS COUNTED 100
[2016-09-12 12:36] LABS: HYPOCHROMIC SLIGHT
--- NOTE | 2016-09-12 17:16 | CARD ---
APPROVED REPORT EKG Measurement Heart [id number] VT [id number] [id number] <Conclusion> Normal sinus rhythm Left axis deviation Prolonged QT Abnormal ECG
--- NOTE | 2016-09-12 18:12 | CP.PCM.PN ---
<Sejal Wilson E - Last Filed: 09/13/16 00:23> Subjective - Date & Time of Evaluation Date of Evaluation: 09/12/16 Time of Evaluation: 11:00 - Subjective Subjective: Medicine note (PGY 1) : Dr. Mayer's service Patient was seen and examined at bedside. Patient was s/p EGD resting comfortably in her bed. Patient denies chest pain, nausea, vomiting, sob, palpitations, abd pain, headache and dizziness. Objective - Vital Signs/Intake and Output Vital Signs (last 24 hours): Temp Pulse Resp BP Pulse Ox 98.5 F 89 20 165/72 H 96 09/12/16 17:49 09/12/16 17:49 09/12/16 17:49 09/12/16 09:28 09/12/16 17:49 Intake and Output: 09/12/16 09/12/16 06:59 18:59 Intake Total 600 800 Balance 600 800 - Medications Medications: Current Medications Acetaminophen (Tylenol 325mg Tab) 650 mg PO Q6 PRN PRN Reason: Pain, Mild (1-3) Albuterol (Ventolin Hfa 90 Mcg/Actuation (8 G)) 1 puff IH RQ6 PRN PRN Reason: Shortness of Breath Famotidine (Pepcid) 20 mg PO DAILY [facility] Last Admin: 09/12/16 10:19 Dose: 20 mg Hydralazine HCl (Apresoline) 100 mg PO TID [facility] Last Admin: 09/12/16 13:21 Dose: 100 mg Sodium Chloride (Sodium Chloride 0.9%) 1,000 mls @ 75 mls/hr IV .[id number] [facility] Last Admin: 09/11/16 17:44 Dose: 75 mls/hr Losartan Potassium (Cozaar) 50 mg PO DAILY [facility] Last Admin: 09/12/16 10:18 Dose: 50 mg Pneumococcal Polyvalent Vaccine (Pneumovax 23 Vaccine) 0.5 ml IM .ONCE ONE Stop: 09/13/16 10:01 Polyethylene Glycol/Electrolytes (Golytely) 4,000 ml PO ONCE ONE Stop: 09/12/16 19:01 Rosuvastatin Calcium (Crestor) 20 mg PO HS [facility] Last Admin: 09/11/16 23:26 Dose: 20 mg - Labs Labs: 09/12/16 11:42 09/12/16 11:42 PT 11.0 SECONDS (9.7-12.2) 09/11/16 12:06 INR 1.0 09/11/16 12:06 APTT 23 SECONDS (21-34) 09/11/16 12:06 - Constitutional Appears: Well, No Acute Distress - Head Exam Head Exam: NORMAL INSPECTION, NORMOCEPHALIC - Eye Exam Eye Exam: EOMI - ENT Exam ENT Exam: Mucous Membranes Moist, Normal Exam - Respiratory Exam Respiratory Exam: Clear to Ausculation Bilateral, NORMAL BREATHING PATTERN - Cardiovascular Exam Cardiovascular Exam: REGULAR RHYTHM, +S1, +S2, Murmur - GI/Abdominal Exam GI & Abdominal Exam: Soft, Normal Bowel Sounds - Neurological Exam Neurological Exam: Alert, Awake, Oriented x3 - Psychiatric Exam Psychiatric exam: Normal Affect, Normal Mood - Skin Skin Exam: Dry, Normal Color, Warm Assessment and Plan (1) Rectal bleed Assessment & Plan: Consult GI- Dr. Mcguire, help appreciated H/H: 10.3/31.8 Fecal Occult: Positive Home medication : Pletal and Aspirin held Colonoscopy from 2016- diverticulosis EGD: Small hiatus hernia was present. Single small erosion in gastric body. No gross lesion in duodenal bulb Repeat colonoscopy for 09/13/16 As GI recommendation, capsule endoscopy will be needed outpatient Status: Acute (2) CKD (chronic kidney disease) stage 3, GFR 30-59 ml/min Assessment & Plan: Consult nephrology- Dr. Green, help appreciated * consider gentle iv hydration, GFR on 09/11/16: 33; 09/12/16 (29) BUN: 26--> 28 Cr: 1.8---> 1.7 Monitor urine outpur and urine osm Status: Acute (3) Hyperlipemia Assessment & Plan: Lipid Panel: * Triglycerides: 70 * Cholesterol: 117 * LDL: 53 * HDL: 44 Crestor 20mg PO HS Status: Acute (4) Peripheral vascular disease Assessment & Plan: C/I for SCDs Stopped taking cilostazol in 01/2016 due to GI bleed Status: Acute (5) Diabetes mellitus Assessment & Plan: HgbA1c: f/u Accuchecks Monitor Status: Chronic (6) HTN (hypertension) Assessment & Plan: Monitor BP Hydralazine 100mg PO TID Losartan 50mg PO daily BP on admission 137/75 Status: Chronic (7) History of heart valve replacement Assessment & Plan: Consult Cardiology- Dr. Donald, help appreciated. Valve replacement in 2016 Status: Acute (8) Prophylactic measure Assessment & Plan: C/I to SCDs due to PVD Pepcid 20mg PO daily Liquid diet Activity as tolerated Accuchecks Status: Acute <Chai Mayer M - Last Filed: 09/13/16 17:47> Objective - Vital Signs/Intake and Output Vital Signs (last 24 hours): Temp Pulse Resp BP Pulse Ox 99.6 F 88 20 181/68 H 95 09/13/16 16:00 09/13/16 16:00 09/13/16 16:00 09/13/16 16:00 09/13/16 16:00 Intake and Output: 09/13/16 09/13/16 06:59 18:59 Intake Total 2600 1000 Output Total 100 Balance 2600 900 - Medications Medications: Current Medications Acetaminophen (Tylenol 325mg Tab) 650 mg PO Q6 PRN PRN Reason: Pain, Mild (1-3) Albuterol (Ventolin Hfa 90 Mcg/Actuation (8 G)) 1 puff IH RQ6 PRN PRN Reason: Shortness of Breath Amlodipine Besylate (Norvasc) 10 mg PO DAILY [facility] Last Admin: 09/13/16 17:08 Dose: 10 mg Famotidine (Pepcid) 20 mg PO DAILY [facility] Last Admin: 09/13/16 11:00 Dose: Not Given Hydralazine HCl (Apresoline) 100 mg PO TID [facility] Last Admin: 09/13/16 17:08 Dose: 100 mg Sodium Chloride (Sodium Chloride 0.9%) 1,000 mls @ 75 mls/hr IV .[id number] [facility] Last Admin: 09/13/16 17:17 Dose: 75 mls/hr Losartan Potassium (Cozaar) 50 mg PO DAILY [facility] Last Admin: 09/13/16 11:00 Dose: 50 mg Rosuvastatin Calcium (Crestor) 20 mg PO HS [facility] Last Admin: 09/12/16 22:35 Dose: 20 mg - Labs Labs: 09/13/16 06:33 09/13/16 06:33 PT 11.2 SECONDS (9.7-12.2) 09/12/16 21:12 INR 1.0 09/12/16 21:12 APTT 23 SECONDS (21-34) 09/11/16 12:06 Attending/Attestation - Attestation I have personally seen and examined this patient.: Yes I have fully participated in the care of the patient.: Yes I have reviewed all pertinent clinical information, including history, physical exam and plan: Yes Notes (Text): 09/13/16 17:47 Patient was seen and examined at bedside with the resident Plan for colonoscopy as per GI Continue to hold antiplatelet therapy Discussed the plan of care with the resident and agree with the assessment and plan.
[2016-09-12 18:19] LABS: CREATININE, RANDOM URINE 30.1 mg/dL
[2016-09-12 18:30] LABS: SQUAMOUS EPITHIAL 7 /hpf (0-5); URINE BACTERIA OCC (<OCC); URINE BILIRUBIN NEGATIVE (NEGATIVE); URINE BLOOD NEGATIVE (NEGATIVE); URINE CLARITY Hazy (Clear); URINE COLOR Yellow (YELLOW); URINE GLUCOSE (UA) NORMAL (Normal); URINE LEUKOCYTE ESTERASE 3+ Leu/uL (Negative); URINE NITRATE NEGATIVE (NEGATIVE); URINE PROTEIN NEGATIVE (NEGATIVE); URINE UROBILINOGEN NORMAL mg/dL (0.2-1.0)
[2016-09-12] MEDS ORDERED: Peg-Electrolyte Oral Soln 4L (Golytely) PO ONE (19:00)
[2016-09-12 21:32] LABS: PROTHROMBIN TIME 11.2 SECONDS (9.7-12.2)
[2016-09-12 21:36] LABS: FUNCTIONING PLTS 206 K/uL; PLT BASE COUNT 222 K/uL; PLT(ADP) 16 K/uL
--- NOTE | 2016-09-12 22:30 | CP.PCM.PN ---
Subjective - Date & Time of Evaluation Date of Evaluation: 09/12/16 Time of Evaluation: 10:30 - Subjective Subjective: Patient seen and evaluated Denies chest pain and dyspnea Objective - Vital Signs/Intake and Output Vital Signs (last 24 hours): Temp Pulse Resp BP Pulse Ox 98.5 F 89 20 165/72 H 96 09/12/16 17:49 09/12/16 17:49 09/12/16 17:49 09/12/16 09:28 09/12/16 17:49 Intake and Output: 09/12/16 09/13/16 18:59 06:59 Intake Total 800 Balance 800 - Medications Medications: Current Medications Acetaminophen (Tylenol 325mg Tab) 650 mg PO Q6 PRN PRN Reason: Pain, Mild (1-3) Albuterol (Ventolin Hfa 90 Mcg/Actuation (8 G)) 1 puff IH RQ6 PRN PRN Reason: Shortness of Breath Famotidine (Pepcid) 20 mg PO DAILY [facility] Last Admin: 09/12/16 10:19 Dose: 20 mg Hydralazine HCl (Apresoline) 100 mg PO TID [facility] Last Admin: 09/12/16 19:18 Dose: 100 mg Sodium Chloride (Sodium Chloride 0.9%) 1,000 mls @ 75 mls/hr IV .[id number] [facility] Last Admin: 09/11/16 17:44 Dose: 75 mls/hr Losartan Potassium (Cozaar) 50 mg PO DAILY [facility] Last Admin: 09/12/16 10:18 Dose: 50 mg Pneumococcal Polyvalent Vaccine (Pneumovax 23 Vaccine) 0.5 ml IM .ONCE ONE Stop: 09/13/16 10:01 Rosuvastatin Calcium (Crestor) 20 mg PO HS [facility] Last Admin: 09/11/16 23:26 Dose: 20 mg - Labs Labs: 09/12/16 11:42 09/12/16 11:42 PT 11.2 SECONDS (9.7-12.2) 09/12/16 21:12 INR 1.0 09/12/16 21:12 APTT 23 SECONDS (21-34) 09/11/16 12:06
--- NOTE | 2016-09-12 22:41 | CP.PCM.PN ---
Objective - Vital Signs/Intake and Output Vital Signs (last 24 hours): Temp Pulse Resp BP Pulse Ox 98.5 F 91 H 20 209/94 H 96 09/12/16 17:49 09/12/16 22:00 09/12/16 22:00 09/12/16 22:00 09/12/16 17:49 Intake and Output: 09/12/16 09/13/16 18:59 06:59 Intake Total 800 Balance 800 - Medications Medications: Current Medications Acetaminophen (Tylenol 325mg Tab) 650 mg PO Q6 PRN PRN Reason: Pain, Mild (1-3) Albuterol (Ventolin Hfa 90 Mcg/Actuation (8 G)) 1 puff IH RQ6 PRN PRN Reason: Shortness of Breath Famotidine (Pepcid) 20 mg PO DAILY [facility] Last Admin: 09/12/16 10:19 Dose: 20 mg Hydralazine HCl (Apresoline) 100 mg PO TID [facility] Last Admin: 09/12/16 19:18 Dose: 100 mg Sodium Chloride (Sodium Chloride 0.9%) 1,000 mls @ 75 mls/hr IV .[id number] [facility] Last Admin: 09/11/16 17:44 Dose: 75 mls/hr Losartan Potassium (Cozaar) 50 mg PO DAILY [facility] Last Admin: 09/12/16 10:18 Dose: 50 mg Pneumococcal Polyvalent Vaccine (Pneumovax 23 Vaccine) 0.5 ml IM .ONCE ONE Stop: 09/13/16 10:01 Rosuvastatin Calcium (Crestor) 20 mg PO HS [facility] Last Admin: 09/12/16 22:35 Dose: 20 mg - Labs Labs: 09/12/16 11:42 09/12/16 11:42 PT 11.2 SECONDS (9.7-12.2) 09/12/16 21:12 INR 1.0 09/12/16 21:12 APTT 23 SECONDS (21-34) 09/11/16 12:06
[2016-09-12] MEDS: Sodium Chloride 0.9% 1,000 ML IV SCH (23:25)
--- NOTE | 2016-09-13 02:31 | CP.PCM.PN ---
<Nieves Cleary - Last Filed: 09/13/16 02:28> Subjective - Date & Time of Evaluation Date of Evaluation: 09/13/16 Time of Evaluation: 02:28 - Subjective Subjective: Medicine Progress Note- Dr. Heller Service Patient was seen and examined at bedside in no acute distress. Patient reports feeling better today. She states she has pain in her legs secondary to her PVD. She feels short of breath occasionally. Patient denies chest pain, palpitations , feeling dizzy, nausea, vomiting, and diarrhea. Objective - Vital Signs/Intake and Output Vital Signs (last 24 hours): Temp Pulse Resp BP Pulse Ox 98.5 F 95 H 20 189/77 H 96 09/12/16 23:40 09/12/16 23:40 09/12/16 23:40 09/12/16 23:40 09/12/16 23:40 Intake and Output: 09/12/16 09/13/16 18:59 06:59 Intake Total 800 2600 Balance 800 2600 - Medications Medications: Current Medications Acetaminophen (Tylenol 325mg Tab) 650 mg PO Q6 PRN PRN Reason: Pain, Mild (1-3) Albuterol (Ventolin Hfa 90 Mcg/Actuation (8 G)) 1 puff IH RQ6 PRN PRN Reason: Shortness of Breath Famotidine (Pepcid) 20 mg PO DAILY [facility] Last Admin: 09/12/16 10:19 Dose: 20 mg Hydralazine HCl (Apresoline) 100 mg PO TID [facility] Last Admin: 09/12/16 19:18 Dose: 100 mg Sodium Chloride (Sodium Chloride 0.9%) 1,000 mls @ 75 mls/hr IV .[id number] [facility] Last Admin: 09/12/16 23:25 Dose: 75 mls/hr Losartan Potassium (Cozaar) 50 mg PO DAILY [facility] Last Admin: 09/12/16 10:18 Dose: 50 mg Magnesium Citrate (Citrate Of Mag) 300 ml PO ONCE ONE Stop: 09/13/16 04:01 Pneumococcal Polyvalent Vaccine (Pneumovax 23 Vaccine) 0.5 ml IM .ONCE ONE Stop: 09/13/16 10:01 Rosuvastatin Calcium (Crestor) 20 mg PO HS [facility] Last Admin: 09/12/16 22:35 Dose: 20 mg - Labs Labs: 09/12/16 11:42 09/12/16 11:42 PT 11.2 SECONDS (9.7-12.2) 09/12/16 21:12 INR 1.0 09/12/16 21:12 APTT 23 SECONDS (21-34) 09/11/16 12:06 - Constitutional Appears: No Acute Distress - Head Exam Head Exam: NORMAL INSPECTION, NORMOCEPHALIC - Eye Exam Eye Exam: absent: Normal appearance - ENT Exam ENT Exam: Mucous Membranes Moist - Neck Exam Neck Exam: Normal Inspection - Respiratory Exam Respiratory Exam: Clear to Ausculation Bilateral, NORMAL BREATHING PATTERN. absent: Rhonchi, Wheezes - Cardiovascular Exam Cardiovascular Exam: REGULAR RHYTHM, +S1, +S2. absent: Rubs, Murmur - GI/Abdominal Exam GI & Abdominal Exam: Soft, Normal Bowel Sounds. absent: Tenderness - Extremities Exam Extremities Exam: Pedal Edema, Tenderness (LE due to PVD). absent: Calf Tenderness - Neurological Exam Neurological Exam: Alert, Awake - Psychiatric Exam Psychiatric exam: Normal Affect, Normal Mood - Skin Skin Exam: Dry, Intact, Normal Color, Warm Assessment and Plan (1) Rectal bleed Assessment & Plan: Consult GI- Dr. Mcguire, help appreciated H/H: 10.3/31.8 on 09/12/16 Fecal Occult: Positive Home medication : Pletal and Aspirin held Colonoscopy from 2016- diverticulosis EGD: Small hiatus hernia was present. Single small erosion in gastric body. No gross lesion in duodenal bulb Repeat colonoscopy: f/u As GI recommendation, capsule endoscopy will be needed outpatient Status: Acute (2) CKD (chronic kidney disease) stage 3, GFR 30-59 ml/min Assessment & Plan: Consult nephrology- Dr. Green, help appreciated * consider gentle iv hydration, GFR on 09/11/16: 33; 09/12/16 (29) BUN: 26--> 28 Cr: 1.8---> 1.7 Urine osmolality: 331 Monitor urine output Status: Acute (3) Hyperlipemia Assessment & Plan: Lipid Panel: * Triglycerides: 70 * Cholesterol: 117 * LDL: 53 * HDL: 44 Crestor 20mg PO HS Status: Acute (4) Peripheral vascular disease Assessment & Plan: C/I for SCDs Stopped taking cilostazol in 01/2016 due to GI bleed Status: Acute (5) Diabetes mellitus Assessment & Plan: HgbA1c: f/u Accuchecks Monitor Status: Chronic (6) HTN (hypertension) Assessment & Plan: Monitor BP Hydralazine 100mg PO TID Losartan 50mg PO daily BP on admission 137/75 SBP overnight was in the 200s--> gave Hydralazine 10mg IV Once Status: Chronic (7) History of heart valve replacement Assessment & Plan: Consult Cardiology- Dr. Piña, help appreciated. Valve replacement in 2016 Status: Acute (8) Prophylactic measure Assessment & Plan: C/I to SCDs due to PVD Pepcid 20mg PO daily Liquid diet Activity as tolerated Accuchecks Status: Acute <Chai Mayer M - Last Filed: 09/13/16 18:24> Objective - Vital Signs/Intake and Output Vital Signs (last 24 hours): Temp Pulse Resp BP Pulse Ox 99.6 F 88 20 181/68 H 95 09/13/16 16:00 09/13/16 16:00 09/13/16 16:00 09/13/16 16:00 09/13/16 16:00 Intake and Output: 09/13/16 09/13/16 06:59 18:59 Intake Total 2600 1000 Output Total 100 Balance 2600 900 - Medications Medications: Current Medications Acetaminophen (Tylenol 325mg Tab) 650 mg PO Q6 PRN PRN Reason: Pain, Mild (1-3) Albuterol (Ventolin Hfa 90 Mcg/Actuation (8 G)) 1 puff IH RQ6 PRN PRN Reason: Shortness of Breath Amlodipine Besylate (Norvasc) 10 mg PO DAILY [facility] Last Admin: 09/13/16 17:08 Dose: 10 mg Famotidine (Pepcid) 20 mg PO DAILY [facility] Last Admin: 09/13/16 11:00 Dose: Not Given Hydralazine HCl (Apresoline) 100 mg PO TID [facility] Last Admin: 09/13/16 17:08 Dose: 100 mg Sodium Chloride (Sodium Chloride 0.9%) 1,000 mls @ 75 mls/hr IV .[id number] [facility] Last Admin: 09/13/16 17:17 Dose: 75 mls/hr Losartan Potassium (Cozaar) 50 mg PO DAILY [facility] Last Admin: 09/13/16 11:00 Dose: 50 mg Rosuvastatin Calcium (Crestor) 20 mg PO HS [facility] Last Admin: 09/12/16 22:35 Dose: 20 mg - Labs Labs: 09/13/16 06:33 09/13/16 06:33 PT 11.2 SECONDS (9.7-12.2) 09/12/16 21:12 INR 1.0 09/12/16 21:12 APTT 23 SECONDS (21-34) 09/11/16 12:06 Attending/Attestation - Attestation I have personally seen and examined this patient.: Yes I have fully participated in the care of the patient.: Yes I have reviewed all pertinent clinical information, including history, physical exam and plan: Yes Notes (Text): 09/13/16 18:23 Patient was seen and examined at bedside with the resident Status post colonoscopy today Hold antiplatelet therapy Monitor for any GI bleed Discussed with the family at bedside Discussed the plan of care with the resident and agree with the assessment and plan
[2016-09-13] MEDS ORDERED: Magnesium Citrate Oral SOL (300 ml) PO ONE (04:00)
[2016-09-13] MEDS ORDERED: Metoprolol 1 mg/ml Inj IVP ONE (05:11)
[2016-09-13 06:49] LABS: BASO # 0.1 K/uL (0.0-0.2); BASO % 0.9 % (0.0-2.0); EOS # 0.3 K/uL (0.0-0.7); EOS % 3.8 % (0.0-4.0); LYMPH # 0.9 K/uL (1.0-4.3); LYMPH % 11.9 % (20.0-40.0); MEAN CELL VOLUME 91.9 fL (81.0-99.0); MEAN CORPUSCULAR HGB CONC 33.8 g/dL (33.0-37.0); MEAN PLATELET VOLUME 8.1 fL (7.2-11.7); MONO # 0.8 K/uL (0.0-0.8); MONO % 10.3 % (0.0-10.0); NEUT # 5.3 K/uL (1.8-7.0); NEUT % 73.1 % (50.0-75.0); NRBC % 0.1 % (0.0-2.0); RBC 3.21 Mil/uL (3.80-5.20); RED CELL DISTRIBUTION WIDTH 15.5 % (11.5-14.5); WHITE BLOOD COUNT 7.3 K/uL (4.8-10.8)
[2016-09-13 06:54] LABS: ALBUMIN 2.8 g/dL (3.5-5.0)
[2016-09-13 06:57] LABS: ALB/GLOB RATIO 0.8 (1.0-2.1); CALCIUM 8.7 mg/dl (8.6-10.4)
[2016-09-13] MEDS ORDERED: Lactated Ringer's 500 ML IV ONE (07:21)
--- NOTE | 2016-09-13 08:18 | RAD ---
PROCEDURE: CHEST RADIOGRAPH, 1 VIEW HISTORY: verify left PICC COMPARISON: 09/11/2016 FINDINGS: LUNGS: Left PICC line with tip extending to the distal right SVC. No evidence of postprocedure pneumothorax. Small left pleural effusion. Mild venous congestion. Bilateral hilar prominence. Biapical pleural thickening with upper lobe granulomatous changes. PLEURA: As above. CARDIOVASCULAR: Cardiomegaly. Calcification at the aortic knob. OSSEOUS STRUCTURES: Degenerative changes in the spine and shoulders. VISUALIZED UPPER ABDOMEN: Normal. OTHER FINDINGS: None. IMPRESSION: Left PICC line with tip extending to the distal right SVC. No evidence of postprocedure pneumothorax. Small left pleural effusion. Mild venous congestion. Bilateral hilar prominence. Biapical pleural thickening with upper lobe granulomatous changes.
[2016-09-13] MEDS ORDERED: Sodium Chloride 0.9% 500 ML IV ONE (08:45)
[2016-09-13] MEDS ORDERED: Lidocaine Hydrochloride 5 ML INJ ONE (08:46)
[2016-09-13] MEDS ORDERED: Propofol 10 mg/ml Inj (20 ML) ONE (08:46)
[2016-09-13] MEDS ORDERED: Pneumococcal 23-Valent Vaccine IM ONE (10:00)
[2016-09-13] MEDS: Sodium Chloride 0.9% 1,000 ML IV SCH ×3 (10:30→22:54)
[2016-09-14] MEDS ORDERED: Metoprolol 1 mg/ml Inj IVP ONE (00:51)
--- NOTE | 2016-09-14 02:42 | CP.PCM.PN ---
<Nieves Cleary - Last Filed: 09/14/16 02:39> Subjective - Date & Time of Evaluation Date of Evaluation: 09/14/16 Time of Evaluation: 02:39 - Subjective Subjective: Medicine Progress Note- Dr. Mayer Service Patient was seen and examined at bedside in no acute distress. Patient was sleeping comfortably in bed. Patient reports feeling better. She states she has pain in her legs and in her feet secondary to her PVD. She still feels short of breath occasionally. Patient had a bowel movement yesterday that was normal; Her daughter was in the room, who reports her mother did not see blood in her stool. Patient denies chest pain, palpitations, feeling dizzy, nausea, vomiting , and diarrhea. Objective - Vital Signs/Intake and Output Vital Signs (last 24 hours): Temp Pulse Resp BP Pulse Ox 98.8 F 84 20 189/81 H 97 09/13/16 23:25 09/14/16 01:03 09/13/16 23:25 09/14/16 01:03 09/13/16 23:25 Intake and Output: 09/13/16 09/14/16 18:59 06:59 Intake Total 1000 900 Output Total 100 Balance 900 900 - Medications Medications: Current Medications Acetaminophen (Tylenol 325mg Tab) 650 mg PO Q6 PRN PRN Reason: Pain, Mild (1-3) Albuterol (Ventolin Hfa 90 Mcg/Actuation (8 G)) 1 puff IH RQ6 PRN PRN Reason: Shortness of Breath Amlodipine Besylate (Norvasc) 10 mg PO DAILY [facility] Last Admin: 09/13/16 17:08 Dose: 10 mg Famotidine (Pepcid) 20 mg PO DAILY [facility] Last Admin: 09/13/16 11:00 Dose: Not Given Hydralazine HCl (Apresoline) 100 mg PO TID [facility] Last Admin: 09/13/16 17:08 Dose: 100 mg Sodium Chloride (Sodium Chloride 0.9%) 1,000 mls @ 75 mls/hr IV .[id number] [facility] Last Admin: 09/13/16 22:54 Dose: Not Given Losartan Potassium (Cozaar) 50 mg PO DAILY [facility] Last Admin: 09/13/16 11:00 Dose: 50 mg Rosuvastatin Calcium (Crestor) 20 mg PO HS [facility] Last Admin: 09/13/16 21:05 Dose: 20 mg - Labs Labs: 09/13/16 06:33 09/13/16 06:33 PT 11.2 SECONDS (9.7-12.2) 09/12/16 21:12 INR 1.0 09/12/16 21:12 APTT 23 SECONDS (21-34) 09/11/16 12:06 - Constitutional Appears: No Acute Distress - Head Exam Head Exam: NORMAL INSPECTION, NORMOCEPHALIC - Eye Exam Eye Exam: absent: Normal appearance (R eye blind; L eye corneal transplant) - ENT Exam ENT Exam: Mucous Membranes Moist - Neck Exam Neck Exam: Normal Inspection - Respiratory Exam Respiratory Exam: Clear to Ausculation Bilateral, NORMAL BREATHING PATTERN. absent: Rhonchi, Wheezes - Cardiovascular Exam Cardiovascular Exam: REGULAR RHYTHM, +S1, +S2. absent: Murmur - GI/Abdominal Exam GI & Abdominal Exam: Soft, Normal Bowel Sounds. absent: Tenderness - Extremities Exam Extremities Exam: Tenderness. absent: Pedal Edema - Neurological Exam Neurological Exam: Alert, Awake - Psychiatric Exam Psychiatric exam: Normal Affect, Normal Mood - Skin Skin Exam: Dry, Intact, Normal Color, Warm Assessment and Plan (1) Rectal bleed Assessment & Plan: Consult GI- Dr. Mcguire, help appreciated H/H: 10.3/31.8 on 09/12/16 H/H: 10.0/29.5 on 09/13/16 Fecal Occult: Positive Home medication : Pletal and Aspirin held Colonoscopy from 2016- diverticulosis Colonoscopy 09/13/16: Severe Diverticulitis in recto-sigmoid colon, sigmoid colon , and descending colon; no evidence of diverticular bleeding. EGD: Small hiatus hernia was present. Single small erosion in gastric body. No gross lesion in duodenal bulb As GI recommendation, capsule endoscopy will be needed outpatient Status: Acute (2) CKD (chronic kidney disease) stage 3, GFR 30-59 ml/min Assessment & Plan: Consult nephrology- Dr. Green, help appreciated * consider gentle IV hydration, * NS @75mls/hr GFR on 09/11/16: 33; 09/12/16 (29) BUN: 26--> 28 Cr: 1.8---> 1.7 Urine osmolality: 331 Monitor urine output Status: Acute (3) Hyperlipemia Assessment & Plan: Lipid Panel: * Triglycerides: 70 * Cholesterol: 117 * LDL: 53 * HDL: 44 Crestor 20mg PO HS Status: Acute (4) Peripheral vascular disease Assessment & Plan: C/I for SCDs Stopped taking cilostazol in 01/2016 due to GI bleed Status: Acute (5) Diabetes mellitus Assessment & Plan: HgbA1c: f/u Accuchecks Monitor Status: Chronic (6) HTN (hypertension) Assessment & Plan: Monitor BP Hydralazine 100mg PO TID Losartan 50mg PO daily Norvasc 10mg mg PO daily- started on 09/13/16 BP on admission 137/75 SBP overnight was in the 190/85--> gave Lopressor 5mg IV Once Status: Chronic (7) History of heart valve replacement Assessment & Plan: Consult Cardiology- Dr. Piña, help appreciated. Valve replacement in 2015 Status: Acute (8) Prophylactic measure Assessment & Plan: C/I to SCDs due to PVD Pepcid 20mg PO daily Liquid diet Activity as tolerated Accuchecks Status: Acute <Chai Mayer M - Last Filed: 09/14/16 14:00> Objective - Vital Signs/Intake and Output Vital Signs (last 24 hours): Temp Pulse Resp BP Pulse Ox 98.4 F 72 20 150/70 96 09/14/16 08:45 09/14/16 11:14 09/14/16 08:45 09/14/16 11:14 09/14/16 08:45 Intake and Output: 09/14/16 09/14/16 06:59 18:59 Intake Total 900 Balance 900 - Medications Medications: Current Medications Acetaminophen (Tylenol 325mg Tab) 650 mg PO Q6 PRN PRN Reason: Pain, Mild (1-3) Albuterol (Ventolin Hfa 90 Mcg/Actuation (8 G)) 1 puff IH RQ6 PRN PRN Reason: Shortness of Breath Amlodipine Besylate (Norvasc) 10 mg PO DAILY [facility] Last Admin: 09/14/16 09:12 Dose: 10 mg Famotidine (Pepcid) 20 mg PO DAILY [facility] Last Admin: 09/14/16 09:12 Dose: 20 mg Hydralazine HCl (Apresoline) 100 mg PO TID [facility] Last Admin: 09/14/16 13:09 Dose: 100 mg Sodium Chloride (Sodium Chloride 0.9%) 1,000 mls @ 75 mls/hr IV .[id number] [facility] Last Admin: 09/14/16 13:10 Dose: Not Given Losartan Potassium (Cozaar) 50 mg PO DAILY [facility] Last Admin: 09/14/16 09:12 Dose: 50 mg Rosuvastatin Calcium (Crestor) 20 mg PO HS [facility] Last Admin: 09/13/16 21:05 Dose: 20 mg - Labs Labs: 09/14/16 08:05 09/14/16 08:05 PT 11.2 SECONDS (9.7-12.2) 09/12/16 21:12 INR 1.0 09/12/16 21:12 APTT 23 SECONDS (21-34) 09/11/16 12:06 Attending/Attestation - Attestation I have personally seen and examined this patient.: Yes I have fully participated in the care of the patient.: Yes I have reviewed all pertinent clinical information, including history, physical exam and plan: Yes Notes (Text): 09/14/16 13:58 Patient was seen and examined at bedside Patient to appears comfortable with no further episode of GI bleed Patient is status post EGD and colonoscopy. No active bleeding reported Aspirin and cilostazol are on hold. We will restart when cleared by gastroenterology Advance diet as tolerated Right discussed the plan of care with the resident and agree with the assessment and plan documented.
[2016-09-14] MEDS: Sodium Chloride 0.9% 1,000 ML IV SCH ×2 (07:45→13:10)
[2016-09-14 08:29] LABS: ALBUMIN 2.7 g/dL (3.5-5.0)
[2016-09-14 08:32] LABS: ALB/GLOB RATIO 0.8 (1.0-2.1)
[2016-09-14 08:33] LABS: CALCIUM 8.3 mg/dl (8.6-10.4); MAGNESIUM 2.2 mg/dL (1.6-2.3)
[2016-09-14 08:38] LABS: BASO # 0.1 K/uL (0.0-0.2); BASO % 0.8 % (0.0-2.0); EOS # 0.3 K/uL (0.0-0.7); EOS % 3.6 % (0.0-4.0); HEMOGLOBIN 9.9 g/dL (11.0-16.0); LYMPH # 1.1 K/uL (1.0-4.3); LYMPH % 12.8 % (20.0-40.0); MEAN CELL VOLUME 92.2 fL (81.0-99.0); MEAN CORPUSCULAR HEMOGLOBIN 30.1 pg (27.0-31.0); MEAN CORPUSCULAR HGB CONC 32.6 g/dL (33.0-37.0); MEAN PLATELET VOLUME 9.1 fL (7.2-11.7); MONO # 1.1 K/uL (0.0-0.8); MONO % 13.5 % (0.0-10.0); NEUT # 5.9 K/uL (1.8-7.0); NEUT % 69.3 % (50.0-75.0); RBC 3.29 Mil/uL (3.80-5.20); RED CELL DISTRIBUTION WIDTH 15.8 % (11.5-14.5); WHITE BLOOD COUNT 8.5 K/uL (4.8-10.8)
--- NOTE | 2016-09-14 12:55 | CP.PCM.PN ---
Subjective - Date & Time of Evaluation Date of Evaluation: 09/13/16 Time of Evaluation: 10:15 - Subjective Subjective: Patient seen and evaluated Denies chest pain and dyspnea Admitted for GIB Off antiplatelets No cardiac events Will continue to monitor Objective - Vital Signs/Intake and Output Vital Signs (last 24 hours): Temp Pulse Resp BP Pulse Ox 98.4 F 72 20 150/70 96 09/14/16 08:45 09/14/16 11:14 09/14/16 08:45 09/14/16 11:14 09/14/16 08:45 Intake and Output: 09/14/16 09/14/16 06:59 18:59 Intake Total 900 Balance 900 - Medications Medications: Current Medications Acetaminophen (Tylenol 325mg Tab) 650 mg PO Q6 PRN PRN Reason: Pain, Mild (1-3) Albuterol (Ventolin Hfa 90 Mcg/Actuation (8 G)) 1 puff IH RQ6 PRN PRN Reason: Shortness of Breath Amlodipine Besylate (Norvasc) 10 mg PO DAILY [facility] Last Admin: 09/14/16 09:12 Dose: 10 mg Famotidine (Pepcid) 20 mg PO DAILY [facility] Last Admin: 09/14/16 09:12 Dose: 20 mg Hydralazine HCl (Apresoline) 100 mg PO TID [facility] Last Admin: 09/14/16 09:12 Dose: 100 mg Sodium Chloride (Sodium Chloride 0.9%) 1,000 mls @ 75 mls/hr IV .[id number] [facility] Last Admin: 09/14/16 07:45 Dose: 75 mls/hr Losartan Potassium (Cozaar) 50 mg PO DAILY [facility] Last Admin: 09/14/16 09:12 Dose: 50 mg Rosuvastatin Calcium (Crestor) 20 mg PO HS [facility] Last Admin: 09/13/16 21:05 Dose: 20 mg - Labs Labs: 09/14/16 08:05 09/14/16 08:05 PT 11.2 SECONDS (9.7-12.2) 09/12/16 21:12 INR 1.0 09/12/16 21:12 APTT 23 SECONDS (21-34) 09/11/16 12:06
--- NOTE | 2016-09-14 19:31 | CP.PCM.PN ---
Subjective - Date & Time of Evaluation Date of Evaluation: 09/14/16 Time of Evaluation: 19:31 - Subjective Subjective: 81 yo elderly HF with pmh/o htn x 15- 20 yrs, dm x 10 yrs, hld, s/p ? valve replacement 1 yr ago, diverticulosis, s/p rectal bleed x 1 last yr was BIB pt' s family with cc/o rectal bleed x 2 days, pt had a pink colored stool x5-6, c/ o feeling weak and tiered. pt denies any cp, palpitation, no naudsea, no vomitings, no abd. pain, no edema, no skin rash. renal consult is requested for evaluation of increased bun/cr. no recet weight loss or gain pt is feeling better, no pain, no sob, no bleeding, renal function is improving Objective - Vital Signs/Intake and Output Vital Signs (last 24 hours): Temp Pulse Resp BP Pulse Ox 98.3 F 77 20 155/71 H 96 09/14/16 16:00 09/14/16 16:00 09/14/16 16:00 09/14/16 16:00 09/14/16 16:00 Intake and Output: 09/14/16 09/15/16 18:59 06:59 Intake Total 950 Balance 950 - Medications Medications: Current Medications Acetaminophen (Tylenol 325mg Tab) 650 mg PO Q6 PRN PRN Reason: Pain, Mild (1-3) Albuterol (Ventolin Hfa 90 Mcg/Actuation (8 G)) 1 puff IH RQ6 PRN PRN Reason: Shortness of Breath Amlodipine Besylate (Norvasc) 10 mg PO DAILY [facility] Last Admin: 09/14/16 09:12 Dose: 10 mg Famotidine (Pepcid) 20 mg PO DAILY [facility] Last Admin: 09/14/16 09:12 Dose: 20 mg Hydralazine HCl (Apresoline) 100 mg PO TID [facility] Last Admin: 09/14/16 19:05 Dose: 100 mg Sodium Chloride (Sodium Chloride 0.9%) 1,000 mls @ 75 mls/hr IV .[id number] [facility] Last Admin: 09/14/16 13:10 Dose: Not Given Losartan Potassium (Cozaar) 50 mg PO DAILY [facility] Last Admin: 09/14/16 09:12 Dose: 50 mg Rosuvastatin Calcium (Crestor) 20 mg PO HS [facility] Last Admin: 09/13/16 21:05 Dose: 20 mg - Labs Labs: 09/14/16 08:05 09/14/16 08:05 PT 11.2 SECONDS (9.7-12.2) 09/12/16 21:12 INR 1.0 09/12/16 21:12 APTT 23 SECONDS (21-34) 09/11/16 12:06 - Constitutional Appears: Well, Non-toxic, No Acute Distress - Head Exam Head Exam: ATRAUMATIC, NORMAL INSPECTION, NORMOCEPHALIC - Eye Exam Eye Exam: EOMI, Normal appearance Pupil Exam: NORMAL ACCOMODATION - ENT Exam ENT Exam: Mucous Membranes Moist - Neck Exam Neck Exam: Full ROM - Respiratory Exam Respiratory Exam: Clear to Ausculation Bilateral, NORMAL BREATHING PATTERN - Cardiovascular Exam Cardiovascular Exam: REGULAR RHYTHM, +S1, +S2 - GI/Abdominal Exam GI & Abdominal Exam: Soft, Normal Bowel Sounds Additional comments: non tender , no guarding , rigidity - Rectal Exam Rectal Exam: Deferred - Neurological Exam Neurological Exam: Alert, Awake, Oriented x3 - Skin Skin Exam: Dry, Warm Additional comments: DPP are weak, rt big toe base ulcer on plantar aspect Assessment and Plan - Assessment and Plan (Free Text) Plan: 81 yo HF with dm, htn, rectal bleed, increased bun/cr 1. JOSÉ MIGUEL on ckd, renal function is slightly better, continue gentle iv hydration 2. Hypertension, bp is stable, amlodipine, losartan, hydralazine 3. s/p GI bleed, f/u with gi repeat bmp, cbc in am
--- NOTE | 2016-09-14 22:26 | CP.PCM.PN ---
Subjective - Date & Time of Evaluation Date of Evaluation: 09/14/16 Time of Evaluation: 15:50 - Subjective Subjective: Patient seen and evaluated No cardiac events Feels better Objective - Vital Signs/Intake and Output Vital Signs (last 24 hours): Temp Pulse Resp BP Pulse Ox 98.3 F 77 20 155/71 H 96 09/14/16 16:00 09/14/16 16:00 09/14/16 16:00 09/14/16 16:00 09/14/16 16:00 Intake and Output: 09/14/16 09/15/16 18:59 06:59 Intake Total 950 Balance 950 - Medications Medications: Current Medications Acetaminophen (Tylenol 325mg Tab) 650 mg PO Q6 PRN PRN Reason: Pain, Mild (1-3) Albuterol (Ventolin Hfa 90 Mcg/Actuation (8 G)) 1 puff IH RQ6 PRN PRN Reason: Shortness of Breath Amlodipine Besylate (Norvasc) 10 mg PO DAILY [facility] Last Admin: 09/14/16 09:12 Dose: 10 mg Famotidine (Pepcid) 20 mg PO DAILY [facility] Last Admin: 09/14/16 09:12 Dose: 20 mg Hydralazine HCl (Apresoline) 100 mg PO TID [facility] Last Admin: 09/14/16 19:05 Dose: 100 mg Sodium Chloride (Sodium Chloride 0.9%) 1,000 mls @ 75 mls/hr IV .[id number] [facility] Last Admin: 09/14/16 13:10 Dose: Not Given Losartan Potassium (Cozaar) 50 mg PO DAILY [facility] Last Admin: 09/14/16 09:12 Dose: 50 mg Rosuvastatin Calcium (Crestor) 20 mg PO HS [facility] Last Admin: 09/13/16 21:05 Dose: 20 mg - Labs Labs: 09/14/16 08:05 09/14/16 08:05 PT 11.2 SECONDS (9.7-12.2) 09/12/16 21:12 INR 1.0 09/12/16 21:12 APTT 23 SECONDS (21-34) 09/11/16 12:06
[2016-09-15 06:15] LABS: BASO # 0.1 K/uL (0.0-0.2); BASO % 1.1 % (0.0-2.0); EOS # 0.4 K/uL (0.0-0.7); HEMOGLOBIN 9.5 g/dL (11.0-16.0); LYMPH # 1.1 K/uL (1.0-4.3); LYMPH % 12.4 % (20.0-40.0); MEAN CELL VOLUME 92.3 fL (81.0-99.0); MEAN CORPUSCULAR HEMOGLOBIN 30.2 pg (27.0-31.0); MEAN CORPUSCULAR HGB CONC 32.7 g/dL (33.0-37.0); MEAN PLATELET VOLUME 8.3 fL (7.2-11.7); MONO # 1.1 K/uL (0.0-0.8); MONO % 13.2 % (0.0-10.0); NEUT # 5.8 K/uL (1.8-7.0); NEUT % 68.3 % (50.0-75.0); NRBC % 0.1 % (0.0-2.0); RBC 3.15 Mil/uL (3.80-5.20); RED CELL DISTRIBUTION WIDTH 15.7 % (11.5-14.5); WHITE BLOOD COUNT 8.5 K/uL (4.8-10.8)
[2016-09-15 06:19] LABS: ALBUMIN 2.6 g/dL (3.5-5.0)
[2016-09-15 06:22] LABS: ALB/GLOB RATIO 0.8 (1.0-2.1)
[2016-09-15 06:23] LABS: CALCIUM 8.1 mg/dl (8.6-10.4); MAGNESIUM 2.2 mg/dL (1.6-2.3)
--- NOTE | 2016-09-15 10:30 | CP.PCM.PN ---
Subjective - Date & Time of Evaluation Date of Evaluation: 09/15/16 Time of Evaluation: 10:27 - Subjective Subjective: Patient denies having nausea, vomiting, abdominal pain. She is tolerating a regular diet. She has not had any further bleeding. Objective - Vital Signs/Intake and Output Vital Signs (last 24 hours): Temp Pulse Resp BP Pulse Ox 98.9 F 79 20 189/68 H 97 09/15/16 08:44 09/15/16 08:44 09/15/16 08:44 09/15/16 08:44 09/15/16 08:44 - Medications Medications: Current Medications Acetaminophen (Tylenol 325mg Tab) 650 mg PO Q6 PRN PRN Reason: Pain, Mild (1-3) Albuterol (Ventolin Hfa 90 Mcg/Actuation (8 G)) 1 puff IH RQ6 PRN PRN Reason: Shortness of Breath Amlodipine Besylate (Norvasc) 10 mg PO DAILY [facility] Last Admin: 09/15/16 09:05 Dose: Not Given Famotidine (Pepcid) 20 mg PO DAILY [facility] Last Admin: 09/15/16 09:05 Dose: 20 mg Hydralazine HCl (Apresoline) 100 mg PO TID [facility] Last Admin: 09/15/16 09:04 Dose: 100 mg Hydralazine HCl (Apresoline) 10 mg IVP Q6H PRN PRN Reason: SBP> 160 Losartan Potassium (Cozaar) 50 mg PO DAILY [facility] Last Admin: 09/15/16 09:04 Dose: 50 mg Rosuvastatin Calcium (Crestor) 20 mg PO HS [facility] Last Admin: 09/14/16 23:18 Dose: Not Given - Labs Labs: 09/15/16 06:01 09/15/16 06:01 PT 11.2 SECONDS (9.7-12.2) 09/12/16 21:12 INR 1.0 09/12/16 21:12 APTT 23 SECONDS (21-34) 09/11/16 12:06 - Constitutional Appears: No Acute Distress - Head Exam Head Exam: ATRAUMATIC, NORMOCEPHALIC - Neck Exam Neck Exam: absent: Lymphadenopathy, Thyromegaly - Respiratory Exam Respiratory Exam: NORMAL BREATHING PATTERN. absent: Rales, Rhonchi, Wheezes - Cardiovascular Exam Cardiovascular Exam: REGULAR RHYTHM, +S1, +S2. absent: Rubs, Murmur - GI/Abdominal Exam GI & Abdominal Exam: Soft, Normal Bowel Sounds. absent: Tenderness, Mass, Organomegaly - Rectal Exam Rectal Exam: Deferred Assessment and Plan (1) Gastrointestinal hemorrhage Assessment & Plan: Patient is tolerating a regular diet and has had no further bleeding. The HGB is stable at 9.5. Colonoscopy showed diverticulosis, and EGD showed hiatal hernia, atrophic gastritis, gastric erosion and duodenal diverticulum. Recommend office follow up in two weeks to schedule capsule endoscopy to evaluate the small intestine. Status: Acute
--- NOTE | 2016-09-15 18:30 | CP.PCM.PN ---
<Nieves Cleary - Last Filed: 09/15/16 18:28> Subjective - Date & Time of Evaluation Date of Evaluation: 09/15/16 Time of Evaluation: 18:28 - Subjective Subjective: Medicine Progress Note- Dr. Singh Service Patient was seen and examined at bedside in no acute distress. Patient reports feeling better and only has pain in her legs secondary to her PVD. Patient states she wants a regular diet rather than liquid diet. Patient denies having chest pain, palpitations, abdominal pain, nausea, vomiting, bloody stool, diarrhea, and constipation. Objective - Vital Signs/Intake and Output Vital Signs (last 24 hours): Temp Pulse Resp BP Pulse Ox 98.6 F 81 20 157/69 H 96 09/15/16 15:57 09/15/16 15:57 09/15/16 15:57 09/15/16 15:57 09/15/16 15:57 Intake and Output: 09/15/16 09/15/16 06:59 18:59 Intake Total 700 Balance 700 - Medications Medications: Current Medications Acetaminophen (Tylenol 325mg Tab) 650 mg PO Q6 PRN PRN Reason: Pain, Mild (1-3) Albuterol (Ventolin Hfa 90 Mcg/Actuation (8 G)) 1 puff IH RQ6 PRN PRN Reason: Shortness of Breath Amlodipine Besylate (Norvasc) 10 mg PO DAILY [facility] Last Admin: 09/15/16 09:05 Dose: Not Given Famotidine (Pepcid) 20 mg PO DAILY [facility] Last Admin: 09/15/16 09:05 Dose: 20 mg Hydralazine HCl (Apresoline) 100 mg PO TID [facility] Last Admin: 09/15/16 13:04 Dose: 100 mg Hydralazine HCl (Apresoline) 10 mg IVP Q6H PRN PRN Reason: SBP> 160 Losartan Potassium (Cozaar) 50 mg PO DAILY [facility] Last Admin: 09/15/16 09:04 Dose: 50 mg Rosuvastatin Calcium (Crestor) 20 mg PO HS [facility] Last Admin: 09/14/16 23:18 Dose: Not Given - Labs Labs: 09/15/16 06:01 09/15/16 06:01 PT 11.2 SECONDS (9.7-12.2) 09/12/16 21:12 INR 1.0 09/12/16 21:12 APTT 23 SECONDS (21-34) 09/11/16 12:06 - Constitutional Appears: No Acute Distress - Head Exam Head Exam: NORMAL INSPECTION, NORMOCEPHALIC - Eye Exam Eye Exam: absent: Normal appearance (right eye blind; left eye- corneal transplant) - ENT Exam ENT Exam: Mucous Membranes Moist - Neck Exam Neck Exam: Normal Inspection - Respiratory Exam Respiratory Exam: Clear to Ausculation Bilateral, NORMAL BREATHING PATTERN. absent: Rhonchi, Wheezes - Cardiovascular Exam Cardiovascular Exam: REGULAR RHYTHM, +S1. absent: Rubs, Murmur - GI/Abdominal Exam GI & Abdominal Exam: Soft, Normal Bowel Sounds. absent: Distended, Tenderness - Extremities Exam Extremities Exam: Normal Inspection, Tenderness. absent: Pedal Edema - Neurological Exam Neurological Exam: Alert, Awake, Oriented x3 - Psychiatric Exam Psychiatric exam: Normal Affect, Normal Mood - Skin Skin Exam: Dry, Intact, Normal Color, Warm Assessment and Plan (1) Rectal bleed Assessment & Plan: Consult GI- Dr. Mcguire, help appreciated H/H: 10.3/31.8 on 09/12/16 H/H: 10.0/29.5 on 09/13/16 H/H: 9.5/29.5 on 09/15/16 Fecal Occult: Positive Home medication : Pletal and Aspirin held Colonoscopy from 2016- diverticulosis Colonoscopy 09/13/16: Severe Diverticulitis in recto-sigmoid colon, sigmoid colon , and descending colon; no evidence of diverticular bleeding. EGD: Small hiatus hernia was present. Single small erosion in gastric body. No gross lesion in duodenal bulb As per GI recommendation, capsule endoscopy will be needed outpatient Patient switched to heart healthy diet. Status: Acute (2) CKD (chronic kidney disease) stage 3, GFR 30-59 ml/min Assessment & Plan: Consult nephrology- Dr. Green, help appreciated * Consider gentle IV hydration * NS @75mls/hr- discontinued on 09/15/16 GFR on 09/11/16: 33; 09/12/16 (29) BUN: 26--> 28 (09/12/16) BUN on 09/15/16: 12 Cr: 1.8---> 1.7 (09/12/16) Cr on 09/15/16: 1.3 Urine osmolality: 331 Monitor urine output Status: Acute (3) Hyperlipemia Assessment & Plan: Lipid Panel: * Triglycerides: 70 * Cholesterol: 117 * LDL: 53 * HDL: 44 Crestor 20mg PO HS Status: Acute (4) Peripheral vascular disease Assessment & Plan: C/I for SCDs Stopped taking cilostazol in 01/2016 due to GI bleed Status: Acute (5) Diabetes mellitus Assessment & Plan: HgbA1c: 6.1 Accuchecks Monitor Status: Chronic (6) HTN (hypertension) Assessment & Plan: Monitor BP Hydralazine 100mg PO TID Losartan 50mg PO daily Norvasc 10mg mg PO daily- started on 09/13/16 BP on admission 137/75 Status: Chronic (7) History of heart valve replacement Assessment & Plan: Consult Cardiology- Dr. Piña, help appreciated. Valve replacement in 2015 Status: Acute (8) Prophylactic measure Assessment & Plan: C/I to SCDs due to PVD Pepcid 20mg PO daily Heart Healthy Diet PT Activity as tolerated Accuchecks Status: Acute <Toni Singh H - Last Filed: 09/15/16 19:13> Objective - Vital Signs/Intake and Output Vital Signs (last 24 hours): Temp Pulse Resp BP Pulse Ox 98.6 F 81 20 157/69 H 96 09/15/16 15:57 09/15/16 15:57 09/15/16 15:57 09/15/16 15:57 09/15/16 15:57 Intake and Output: 09/15/16 09/16/16 18:59 06:59 Intake Total 700 Balance 700 - Medications Medications: Current Medications Acetaminophen (Tylenol 325mg Tab) 650 mg PO Q6 PRN PRN Reason: Pain, Mild (1-3) Albuterol (Ventolin Hfa 90 Mcg/Actuation (8 G)) 1 puff IH RQ6 PRN PRN Reason: Shortness of Breath Amlodipine Besylate (Norvasc) 10 mg PO DAILY [facility] Last Admin: 09/15/16 09:05 Dose: Not Given Famotidine (Pepcid) 20 mg PO DAILY [facility] Last Admin: 09/15/16 09:05 Dose: 20 mg Hydralazine HCl (Apresoline) 100 mg PO TID [facility] Last Admin: 09/15/16 13:04 Dose: 100 mg Hydralazine HCl (Apresoline) 10 mg IVP Q6H PRN PRN Reason: SBP> 160 Losartan Potassium (Cozaar) 50 mg PO DAILY [facility] Last Admin: 09/15/16 09:04 Dose: 50 mg Rosuvastatin Calcium (Crestor) 20 mg PO HS [facility] Last Admin: 09/14/16 23:18 Dose: Not Given - Labs Labs: 09/15/16 06:01 09/15/16 06:01 PT 11.2 SECONDS (9.7-12.2) 09/12/16 21:12 INR 1.0 09/12/16 21:12 APTT 23 SECONDS (21-34) 09/11/16 12:06 Attending/Attestation - Attestation I have personally seen and examined this patient.: Yes I have fully participated in the care of the patient.: Yes I have reviewed all pertinent clinical information, including history, physical exam and plan: Yes Notes (Text): 09/15/16 19:10 Medical Attending: Patient was seen and examined by me, agree with the above note by the resident. The patient was with family members and we discussed - patient was ok with family present. She is reporting feeling well. Tolerating the current diet at this time. She had a colonoscopy on 09/13/16 showing severe diverticulitis in recto-sigmoid colon, sigmoid colon, and descending colon; no evidence of diverticular bleeding. She denied having any abdominal pain and the family remarked she had a BM that appeared normal. If Hgb remains stable then hopefully can be DC soon. thank you Toni Singh
--- NOTE | 2016-09-15 22:46 | CP.PCM.PN ---
Subjective - Date & Time of Evaluation Date of Evaluation: 09/15/16 Time of Evaluation: 18:40 - Subjective Subjective: Patient seen and evaluated Comfortable No more GI bleeding Objective - Vital Signs/Intake and Output Vital Signs (last 24 hours): Temp Pulse Resp BP Pulse Ox 98.6 F 81 20 157/69 H 96 09/15/16 15:57 09/15/16 15:57 09/15/16 15:57 09/15/16 15:57 09/15/16 15:57 Intake and Output: 09/15/16 09/16/16 18:59 06:59 Intake Total 700 Balance 700 - Medications Medications: Current Medications Acetaminophen (Tylenol 325mg Tab) 650 mg PO Q6 PRN PRN Reason: Pain, Mild (1-3) Albuterol (Ventolin Hfa 90 Mcg/Actuation (8 G)) 1 puff IH RQ6 PRN PRN Reason: Shortness of Breath Amlodipine Besylate (Norvasc) 10 mg PO DAILY [facility] Last Admin: 09/15/16 09:05 Dose: Not Given Famotidine (Pepcid) 20 mg PO DAILY [facility] Last Admin: 09/15/16 09:05 Dose: 20 mg Hydralazine HCl (Apresoline) 100 mg PO TID [facility] Last Admin: 09/15/16 19:13 Dose: 100 mg Hydralazine HCl (Apresoline) 10 mg IVP Q6H PRN PRN Reason: SBP> 160 Losartan Potassium (Cozaar) 50 mg PO DAILY [facility] Last Admin: 09/15/16 09:04 Dose: 50 mg Rosuvastatin Calcium (Crestor) 20 mg PO HS [facility] Last Admin: 09/15/16 21:40 Dose: 20 mg - Labs Labs: 09/15/16 06:01 09/15/16 06:01 PT 11.2 SECONDS (9.7-12.2) 09/12/16 21:12 INR 1.0 09/12/16 21:12 APTT 23 SECONDS (21-34) 09/11/16 12:06
[2016-09-16 07:45] LABS: BASO # 0.1 K/uL (0.0-0.2); BASO % 1.1 % (0.0-2.0); EOS # 0.5 K/uL (0.0-0.7); EOS % 6.6 % (0.0-4.0); HEMOGLOBIN 9.8 g/dL (11.0-16.0); LYMPH % 12.5 % (20.0-40.0); MEAN CELL VOLUME 92.7 fL (81.0-99.0); MEAN CORPUSCULAR HEMOGLOBIN 30.6 pg (27.0-31.0); MEAN PLATELET VOLUME 8.7 fL (7.2-11.7); MONO # 1.1 K/uL (0.0-0.8); MONO % 13.2 % (0.0-10.0); NEUT # 5.5 K/uL (1.8-7.0); NEUT % 66.6 % (50.0-75.0); RBC 3.2 Mil/uL (3.80-5.20); WHITE BLOOD COUNT 8.3 K/uL (4.8-10.8)
[2016-09-16 08:15] LABS: ALBUMIN 2.8 g/dL (3.5-5.0)
[2016-09-16 08:18] LABS: ALB/GLOB RATIO 0.8 (1.0-2.1)
[2016-09-16 08:19] LABS: CALCIUM 8.7 mg/dl (8.6-10.4); IRON 35 ug/dL (37-170); MAGNESIUM 2.3 mg/dL (1.6-2.3)
[2016-09-16 08:29] LABS: % IRON SATURATION 16 (20-55); TOTAL IRON BINDING CAPACITY 212 ug/dL (250-450)
[2016-09-16 08:43] LABS: FERRITIN 34.2 ng/mL
--- NOTE | 2016-09-16 14:54 | CP.PCM.DIS ---
<Nieves ClearyDc - Last Filed: 09/16/16 20:38> Provider - Provider Date of Admission: 09/11/16 12:45 Attending physician: Chai Mayer MD Primary care physician: Dr. Nicole Consults: GI: Dr. Mcguire Cardiology: Dr. Piña Nephrology: Dr. Green Time Spent in preparation of Discharge (in minutes): 45 Diagnosis - Discharge Diagnosis (1) GI bleed Status: Resolved Comment: See hospital summary for more details. (2) Rectal bleed Status: Resolved Comment: See hospital summary for more details. (3) CKD (chronic kidney disease) stage 3, GFR 30-59 ml/min Status: Chronic Comment: See hospital summary for more details. (4) Hyperlipemia Status: Chronic Comment: See hospital summary for more details. (5) Peripheral vascular disease Status: Acute Priority: High Comment: See hospital summary for more details. (6) Diabetes mellitus Status: Chronic Comment: See hospital summary for more details. (7) HTN (hypertension) Status: Chronic Comment: See hospital summary for more details. (8) History of heart valve replacement Status: Acute Comment: See hospital summary for more details. Hospital Course - Lab Results Lab Results: Most Recent Lab Values WBC 8.3 K/uL (4.8-10.8) 09/16/16 07:19 RBC 3.20 Mil/uL (3.80-5.20) L 09/16/16 07:19 Hgb 9.8 g/dL (11.0-16.0) L 09/16/16 07:19 Hct 29.7 % (34.0-47.0) L 09/16/16 07:19 MCV 92.7 fL (81.0-99.0) 09/16/16 07:19 MCH 30.6 pg (27.0-31.0) 09/16/16 07:19 MCHC 33.0 g/dL (33.0-37.0) 09/16/16 07:19 RDW 16.0 % (11.5-14.5) H 09/16/16 07:19 Plt Count 243 K/uL (130-400) 09/16/16 07:19 MPV 8.7 fL (7.2-11.7) 09/16/16 07:19 Neut % (Auto) 66.6 % (50.0-75.0) 09/16/16 07:19 Lymph % (Auto) 12.5 % (20.0-40.0) L 09/16/16 07:19 Cass % (Auto) 13.2 % (0.0-10.0) H 09/16/16 07:19 Eos % (Auto) 6.6 % (0.0-4.0) H 09/16/16 07:19 Baso % (Auto) 1.1 % (0.0-2.0) 09/16/16 07:19 Neut # 5.5 K/uL (1.8-7.0) 09/16/16 07:19 Lymph # 1.0 K/uL (1.0-4.3) 09/16/16 07:19 Cass # 1.1 K/uL (0.0-0.8) H 09/16/16 07:19 Eos # 0.5 K/uL (0.0-0.7) 09/16/16 07:19 Baso # 0.1 K/uL (0.0-0.2) 09/16/16 07:19 Neutrophils % (Manual) 83 % (50-75) H 09/12/16 11:42 Lymphocytes % (Manual) 8 % (20-40) L 09/12/16 11:42 Monocytes % (Manual) 1 % (0-10) 09/12/16 11:42 Eosinophils % (Manual) 8 % (0-4) H 09/12/16 11:42 Platelet Estimate Normal (NORMAL) 09/12/16 11:42 Hypochromasia (manual) Slight 09/12/16 11:42 Anisocytosis (manual) Slight 09/12/16 11:42 Retic Count 1.4 % (0.5-1.5) 09/16/16 07:19 PT 11.2 SECONDS (9.7-12.2) 09/12/16 21:12 INR 1.0 09/12/16 21:12 APTT 23 SECONDS (21-34) 09/11/16 12:06 Plt Function Assay 206 K/uL 09/12/16 21:12 Sodium 134 mmol/L (132-148) 09/16/16 07:19 Potassium 3.9 mmol/L (3.6-5.2) 09/16/16 07:19 Chloride 107 mmol/L (98-107) 09/16/16 07:19 Carbon Dioxide 21 mmol/L (22-30) L 09/16/16 07:19 Anion Gap 10 (10-20) 09/16/16 07:19 BUN 10 mg/dL (7-17) 09/16/16 07:19 Creatinine 1.4 MG/DL (0.7-1.2) H 09/16/16 07:19 Est GFR ( Amer) 44 09/16/16 07:19 Est GFR (Non-Af Amer) 36 09/16/16 07:19 POC Glucose (mg/dL) 99 mg/dL (65-110) 09/16/16 12:05 Random Glucose 79 mg/dL (65-105) 09/16/16 07:19 Hemoglobin A1c 6.1 % (4.2-6.5) 09/15/16 06:01 Calcium 8.7 mg/dl (8.6-10.4) 09/16/16 07:19 Phosphorus 3.0 mg/dL (2.5-4.5) 09/16/16 07:19 Magnesium 2.3 mg/dL (1.6-2.3) 09/16/16 07:19 Iron 35 ug/dL (37-170) L 09/16/16 07:19 TIBC 212 ug/dL (250-450) L 09/16/16 07:19 % Saturation 16 (20-55) L 09/16/16 07:19 Ferritin 34.2 ng/mL 09/16/16 07:19 Total Bilirubin 0.4 mg/dL (0.2-1.3) 09/16/16 07:19 AST 21 U/L (14-36) 09/16/16 07:19 ALT 22 U/L (9-52) 09/16/16 07:19 Alkaline Phosphatase 47 U/L (38-126) 09/16/16 07:19 Total Protein 6.1 g/dL (6.3-8.3) L 09/16/16 07:19 Albumin 2.8 g/dL (3.5-5.0) L 09/16/16 07:19 Globulin 3.3 gm/dL (2.2-3.9) 09/16/16 07:19 Albumin/Globulin Ratio 0.8 (1.0-2.1) L 09/16/16 07:19 Triglycerides 70 mg/dL (0-149) D 09/12/16 11:42 Cholesterol 117 mg/dL (0-199) 09/12/16 11:42 LDL Cholesterol Direct 53 mg/dL (0-129) 09/12/16 11:42 HDL Cholesterol 44 mg/dL (30-70) 09/12/16 11:42 Vitamin B12 348 pg/mL (239-931) 09/16/16 07:19 Folate 11.0 ng/mL 09/16/16 07:19 Urine Color Yellow (YELLOW) 09/12/16 18:01 Urine Clarity Hazy (Clear) 09/12/16 18:01 Urine pH 6.0 (5.0-8.0) 09/12/16 18:01 Ur Specific [place] 1.009 (1.003-1.030) 09/12/16 18:01 Urine Protein Negative mg/dL (NEGATIVE) 09/12/16 18:01 Urine Glucose (UA) Normal mg/dL (Normal) 09/12/16 18:01 Urine Ketones Negative mg/dL (NEGATIVE) 09/12/16 18:01 Urine Blood Negative (NEGATIVE) 09/12/16 18:01 Urine Nitrate Negative (NEGATIVE) 09/12/16 18:01 Urine Bilirubin Negative (NEGATIVE) 09/12/16 18:01 Urine Urobilinogen Normal mg/dL (0.2-1.0) 09/12/16 18:01 Ur Leukocyte Esterase 3+ Jerson/uL (Negative) H 09/12/16 18:01 Urine WBC (Auto) 117 /hpf (0-5) H 09/12/16 18:01 Urine RBC (Auto) 1 /hpf (0-3) 09/12/16 18:01 Ur Squamous Epith Cells 7 /hpf (0-5) H 09/12/16 18:01 Urine Bacteria Occ (<OCC) H 09/12/16 18:01 Urine Osmolality 331 mosm/kg (300-1000) 09/12/16 18:01 Ur Random Creatinine 30.1 mg/dL 09/12/16 18:01 Ur Random Sodium 95 mmol/L 09/12/16 18:01 Urine Chloride 81 mmol/L (32-290) 09/12/16 18:01 Stool Occult Blood Positive (NEGATIVE) H 09/11/16 18:41 Blood Type A POSITIVE 09/11/16 10:50 Antibody Screen Negative 09/11/16 10:50 - Hospital Course Hospital Course: CC:GI Bleed, rectal bleeding HPI: 81 year old female with a past medical history of PVD, DM, HTN, hyperlipidemia, and an ND, presents with rectal bleeding for 2 days. The patient 's son, Emory, was at bedside and translated for his mother. The patient had 4 bloody dark bowel movements yesterday and two prior to arriving at the hospital. The patient has no pain associated with the rectal bleeding. Patient had a similar episode in 01/2016, which she then stopped taking her prescribed medications, aspirin, plavix, and cilostazol. At that time, her rectal bleeding stopped, and she did not resume those medications. During her hospitalization in 01/2016 for rectal bleeding, the patient had a colonoscopy which showed diverticulosis. Currently, the patient reports feeling weak, fatigued, occasionally short of breath, and has constant leg pain secondary to PVD. Patient denies chest pain, palpitations, abdominal pain, fevers, headaches, dizziness, nausea, vomiting, and dysuria. Hospital Course: Patient was admitted for GI, rectal bleed. In the ED, EKG showed sinus rhythm at 91bpm and chest xray showed no acute disease; central vascular congestion, small left pleural effusion, and left bibasilar atelectasis or infiltrate. GI was consulted and patient was seen by Dr. Mcguire. Fecal occult test was positive. Patient's CBC was monitored. Patient had a colonoscopy which showed severe diverticulosis in recto-sigmoid colon, sigmoid colon, and descending colon; no evidence of diverticular bleeding. Patient's EGD showed a small hiatus hernia; single small erosion in gastric body , no gross lesion in duodenal bulb. As per GI recommendation, capsule endoscopy will be needed outpatient. Nephrology was consulted and patient was seen by Dr. Green. Patient chronic kidney disease was managed and GFR, BUN, and Creatinine were monitored throughout hospital stay. Patient chronic history of hyperlipidemia, hypertension, diabetes mellitus, and PVD were managed throughout hospital stay with Crestor, Hydralazine, Losartan, Norvasc, accuchecks, daily vitals, and placement of SCDs. Lipid profile showed triglycerides 70, cholesterol 117, LDL 53 and HDL 44. Cardiology was consulted and Dr. Piña saw the patient for history of valve replacement in 2016. Patient was switched from liquid diet to heart healthy diet, which patient tolerated well. Patient is stable for discharge to home as per Dr. Singh. Patient advised to avoid eating seeds and nuts. Patient advised to stop taking aspirin and cilostazol until following up with her PMD. Patient should continue all home medications listed below. Tylenol 650mg by mouth as needed Albuterol, inhale as needed Hydralazine 100mg by mouth three times a day. Losartan 50mg by mouth daily Crestor 20mg by mouth at night Vitamin D 1,000 units by mouth daily Colace 100mg by mouth twice a day Lasix 20mg by mouth daily Protonix 40mg by mouth daily. Patient should follow up with primary care doctor, Dr. Nicole, within one week of discharge. These instructions were understood and discuss with the patient and her son. Patient should return to ED if symptoms reoccur. Discharge Exam - Head Exam Head Exam: NORMAL INSPECTION, NORMOCEPHALIC - Eye Exam Eye Exam: absent: Normal appearance (Right eye- blind; Left eye- corneal transplant) - ENT Exam ENT Exam: Mucous Membranes Moist - Neck Exam Neck exam: Normal Inspection - Respiratory Exam Respiratory Exam: Clear to PA & Lateral, NORMAL BREATHING PATTERN, UNREMARKABLE - Cardiovascular Exam Cardiovascular Exam: +S1, +S2 - GI/Abdominal Exam GI & Abdominal Exam: Normal Bowel Sounds, Soft, Unremarkable. absent: Tenderness - Extremities Exam Extremities exam: normal inspection, tenderness (due to PVD) - Neurological Exam Neurological exam: Alert, Oriented x3 - Psychiatric Exam Psychiatric exam: Normal Affect, Normal Mood - Skin Skin Exam: Dry, Intact, Normal Color, Warm Discharge Plan - Follow Up Plan Condition: STABLE Disposition: HOME/ ROUTINE Instructions: Gastrointestinal Bleeding (DC), Colonoscopy (DC), Heart Healthy Diet (DC), Upper Endoscopy (DC) Additional Instructions: Patient is stable for discharge to home as per Dr. Singh. Patient advised to avoid eating seeds and nuts. Patient should continue all home medications listed below. Tylenol 650mg by mouth as needed Albuterol, inhale as needed Hydralazine 100mg by mouth three times a day. Losartan 50mg by mouth daily Crestor 20mg by mouth at night Vitamin D 1,000 units by mouth daily Colace 100mg by mouth twice a day Lasix 20mg by mouth daily Protonix 40mg by mouth daily. Patient should follow up with primary care doctor, Dr. Nicole, within one week of discharge. Do not continue Aspirin or Cilostazol until you speak with your primary care doctor. These instructions were understood and discuss with the patient and her son. Patient should return to ED if symptoms reoccur. <Tnoi Singh - Last Filed: 09/17/16 08:15> Provider - Provider Date of Admission: 09/11/16 12:45 Attending physician: Chai Mayer MD Hospital Course - Lab Results Lab Results: Most Recent Lab Values WBC 8.3 K/uL (4.8-10.8) 09/16/16 07:19 RBC 3.20 Mil/uL (3.80-5.20) L 09/16/16 07:19 Hgb 9.8 g/dL (11.0-16.0) L 09/16/16 07:19 Hct 29.7 % (34.0-47.0) L 09/16/16 07:19 MCV 92.7 fL (81.0-99.0) 09/16/16 07:19 MCH 30.6 pg (27.0-31.0) 09/16/16 07:19 MCHC 33.0 g/dL (33.0-37.0) 09/16/16 07:19 RDW 16.0 % (11.5-14.5) H 09/16/16 07:19 Plt Count 243 K/uL (130-400) 09/16/16 07:19 MPV 8.7 fL (7.2-11.7) 09/16/16 07:19 Neut % (Auto) 66.6 % (50.0-75.0) 09/16/16 07:19 Lymph % (Auto) 12.5 % (20.0-40.0) L 09/16/16 07:19 Cass % (Auto) 13.2 % (0.0-10.0) H 09/16/16 07:19 Eos % (Auto) 6.6 % (0.0-4.0) H 09/16/16 07:19 Baso % (Auto) 1.1 % (0.0-2.0) 09/16/16 07:19 Neut # 5.5 K/uL (1.8-7.0) 09/16/16 07:19 Lymph # 1.0 K/uL (1.0-4.3) 09/16/16 07:19 Cass # 1.1 K/uL (0.0-0.8) H 09/16/16 07:19 Eos # 0.5 K/uL (0.0-0.7) 09/16/16 07:19 Baso # 0.1 K/uL (0.0-0.2) 09/16/16 07:19 Neutrophils % (Manual) 83 % (50-75) H 09/12/16 11:42 Lymphocytes % (Manual) 8 % (20-40) L 09/12/16 11:42 Monocytes % (Manual) 1 % (0-10) 09/12/16 11:42 Eosinophils % (Manual) 8 % (0-4) H 09/12/16 11:42 Platelet Estimate Normal (NORMAL) 09/12/16 11:42 Hypochromasia (manual) Slight 09/12/16 11:42 Anisocytosis (manual) Slight 09/12/16 11:42 Retic Count 1.4 % (0.5-1.5) 09/16/16 07:19 PT 11.2 SECONDS (9.7-12.2) 09/12/16 21:12 INR 1.0 09/12/16 21:12 APTT 23 SECONDS (21-34) 09/11/16 12:06 Plt Function Assay 206 K/uL 09/12/16 21:12 Sodium 134 mmol/L (132-148) 09/16/16 07:19 Potassium 3.9 mmol/L (3.6-5.2) 09/16/16 07:19 Chloride 107 mmol/L (98-107) 09/16/16 07:19 Carbon Dioxide 21 mmol/L (22-30) L 09/16/16 07:19 Anion Gap 10 (10-20) 09/16/16 07:19 BUN 10 mg/dL (7-17) 09/16/16 07:19 Creatinine 1.4 MG/DL (0.7-1.2) H 09/16/16 07:19 Est GFR ( Amer) 44 09/16/16 07:19 Est GFR (Non-Af Amer) 36 09/16/16 07:19 POC Glucose (mg/dL) 99 mg/dL (65-110) 09/16/16 12:05 Random Glucose 79 mg/dL (65-105) 09/16/16 07:19 Hemoglobin A1c 6.1 % (4.2-6.5) 09/15/16 06:01 Calcium 8.7 mg/dl (8.6-10.4) 09/16/16 07:19 Phosphorus 3.0 mg/dL (2.5-4.5) 09/16/16 07:19 Magnesium 2.3 mg/dL (1.6-2.3) 09/16/16 07:19 Iron 35 ug/dL (37-170) L 09/16/16 07:19 TIBC 212 ug/dL (250-450) L 09/16/16 07:19 % Saturation 16 (20-55) L 09/16/16 07:19 Ferritin 34.2 ng/mL 09/16/16 07:19 Total Bilirubin 0.4 mg/dL (0.2-1.3) 09/16/16 07:19 AST 21 U/L (14-36) 09/16/16 07:19 ALT 22 U/L (9-52) 09/16/16 07:19 Alkaline Phosphatase 47 U/L (38-126) 09/16/16 07:19 Total Protein 6.1 g/dL (6.3-8.3) L 09/16/16 07:19 Albumin 2.8 g/dL (3.5-5.0) L 09/16/16 07:19 Globulin 3.3 gm/dL (2.2-3.9) 09/16/16 07:19 Albumin/Globulin Ratio 0.8 (1.0-2.1) L 09/16/16 07:19 Triglycerides 70 mg/dL (0-149) D 09/12/16 11:42 Cholesterol 117 mg/dL (0-199) 09/12/16 11:42 LDL Cholesterol Direct 53 mg/dL (0-129) 09/12/16 11:42 HDL Cholesterol 44 mg/dL (30-70) 09/12/16 11:42 Vitamin B12 348 pg/mL (239-931) 09/16/16 07:19 Folate 11.0 ng/mL 09/16/16 07:19 Homocysteine 22.1 umol/L ( <10.4) H 09/16/16 07:19 Urine Color Yellow (YELLOW) 09/12/16 18:01 Urine Clarity Hazy (Clear) 09/12/16 18:01 Urine pH 6.0 (5.0-8.0) 09/12/16 18:01 Ur Specific [place] 1.009 (1.003-1.030) 09/12/16 18:01 Urine Protein Negative mg/dL (NEGATIVE) 09/12/16 18:01 Urine Glucose (UA) Normal mg/dL (Normal) 09/12/16 18:01 Urine Ketones Negative mg/dL (NEGATIVE) 09/12/16 18:01 Urine Blood Negative (NEGATIVE) 09/12/16 18:01 Urine Nitrate Negative (NEGATIVE) 09/12/16 18:01 Urine Bilirubin Negative (NEGATIVE) 09/12/16 18:01 Urine Urobilinogen Normal mg/dL (0.2-1.0) 09/12/16 18:01 Ur Leukocyte Esterase 3+ Jerson/uL (Negative) H 09/12/16 18:01 Urine WBC (Auto) 117 /hpf (0-5) H 09/12/16 18:01 Urine RBC (Auto) 1 /hpf (0-3) 09/12/16 18:01 Ur Squamous Epith Cells 7 /hpf (0-5) H 09/12/16 18:01 Urine Bacteria Occ (<OCC) H 09/12/16 18:01 Urine Osmolality 331 mosm/kg (300-1000) 09/12/16 18:01 Ur Random Creatinine 30.1 mg/dL 09/12/16 18:01 Ur Random Sodium 95 mmol/L 09/12/16 18:01 Urine Chloride 81 mmol/L (32-290) 09/12/16 18:01 Stool Occult Blood Positive (NEGATIVE) H 09/11/16 18:41 Blood Type A POSITIVE 09/11/16 10:50 Antibody Screen Negative 09/11/16 10:50 Attending/Attestation - Attestation I have personally seen and examined this patient.: Yes I have fully participated in the care of the patient.: Yes I have reviewed all pertinent clinical information, including history, physical exam and plan: Yes Notes (Text): 09/17/16 08:13 Medical attending: Patient was seen and examined by me, agrees the above note by [facility] medical surgical. The patient's hemoglobin was stable, it was increased to 9.8. She was able to tolerate her diet well, she did not have any reported abdominal pain. Family members were present and explained to us that she did have a bowel movement the bowel movement was nonbloody. The patient normally walks with a rolling walker. The patient's family is aware that she needs to follow-up with their primary medical doctor. As documented before she had a repeat colonoscopy done which shows that she has a lot of diverticulosis. I explained to the patient's family members that she needs to avoid seedy foods such as sunflower seeds and peanuts as these can cause the diverticuli to go into full-blown diverticulitis. That being said she appears to be quite well she does not have any pain she's walking with a rolling walker and is at her baseline. Thank you very much, Toni Singh
[2016-09-16 16:13] VITALS: BP 139/80; PULSE 75; RESP 20; TEMP 98; O2SAT 96
--- NOTE | 2016-09-16 23:08 | CP.PCM.PN ---
Subjective - Date & Time of Evaluation Date of Evaluation: 09/16/16 Time of Evaluation: 07:50 - Subjective Subjective: Patient seen and evaluated No cardiac events noted Hgb stable Cardiology follow up as out patient Objective - Vital Signs/Intake and Output Vital Signs (last 24 hours): Temp Pulse Resp BP Pulse Ox 98 F 75 20 139/80 96 09/16/16 15:00 09/16/16 15:00 09/16/16 15:00 09/16/16 15:00 09/16/16 15:00 Intake and Output: 09/16/16 09/17/16 18:59 06:59 Intake Total 550 Balance 550 - Labs Labs: 09/16/16 07:19 09/16/16 07:19 PT 11.2 SECONDS (9.7-12.2) 09/12/16 21:12 INR 1.0 09/12/16 21:12 APTT 23 SECONDS (21-34) 09/11/16 12:06
[2016-09-17 15:58] LABS: GASTRIN 29 pg/mL (<=100)
[2016-09-19 17:17] LABS: METHYLMALONIC ACID,SERUM 288 nmol/L (87-318)
== END 2016-09-16 16:32 | disposition home or self-care (01) | DRG 379 ==
LOC: C.ER 09:27 → C.9E 12:45 → C.6T 14:12
PROVIDERS: ADMIT Internal Medicine; ATTEND Internal Medicine
PROC: 0DB68ZX Excision of Stomach, Via Natural or Artificial Opening Endoscopic, Diagnostic (ICD-10-PCS; principal; 2016-09-12 08:36)
PROC: 0DJD8ZZ Inspection of Lower Intestinal Tract, Via Natural or Artificial Opening Endoscopic (ICD-10-PCS; 2016-09-13)
DX: K57.31 Diverticulosis of large intestine without perforation or abscess with bleeding (principal); E11.22 Type 2 diabetes mellitus with diabetic chronic kidney disease; E11.51 Type 2 diabetes mellitus with diabetic peripheral angiopathy without gangrene; N18.3 Chronic kidney disease, stage 3 (moderate); K57.30 Diverticulosis of large intestine without perforation or abscess without bleeding; K29.40 Chronic atrophic gastritis without bleeding; K31.89 Other diseases of stomach and duodenum; I25.10 Atherosclerotic heart disease of native coronary artery without angina pectoris; K44.9 Diaphragmatic hernia without obstruction or gangrene; I12.9 Hypertensive chronic kidney disease with stage 1 through stage 4 chronic kidney disease, or unspecified chronic kidney disease; J45.909 Unspecified asthma, uncomplicated; E78.5 Hyperlipidemia, unspecified; E78.00 Pure hypercholesterolemia, unspecified; M81.0 Age-related osteoporosis without current pathological fracture; M19.90 Unspecified osteoarthritis, unspecified site; H54.11 Blindness, right eye, low vision left eye; Z94.7 Corneal transplant status; Z95.5 Presence of coronary angioplasty implant and graft; Z95.2 Presence of prosthetic heart valve; Z90.710 Acquired absence of both cervix and uterus; Z87.891 Personal history of nicotine dependence; I25.2 Old myocardial infarction; Z79.01 Long term (current) use of anticoagulants; Z86.010 Personal history of colon polyps

== ENCOUNTER 2016-10-31 10:58 | Observation (INO) | payer MEDICARE, MEDICAID ==
[2016-10-31 11:10] VITALS: BMI 28.3
--- NOTE | 2016-10-31 12:49 | C.PDOC ---
History Of Present Illness 81 y/o female with PMHx of DM. Hyperlipidemia, PAD, PVD and HTN presents to ED accompanied by family with right foot pain for 3 days. As per son pain has gradually increased and has become unbearable for which patient has been taking Percocet for 2 days but today Percocet had no relief. As per son they were told if pain became severe to come to ED and states patient was suppose to have an appointment with Dr. Piña today but was brought to ED for evaluation. Patient denies chest pain, shortness of breath, fever, chills or any other complaints at this time. PCP: , [facility] Dr Piña Vacular Dr Victor Time Seen by Provider: 10/31/16 11:33 Chief Complaint (Nursing): Abnormal Skin Integrity History Per: Patient, Family (son) History/Exam Limitations: no limitations Onset/Duration Of Symptoms: Days Current Symptoms Are (Timing): Still Present Past Medical History Reviewed: Historical Data, Nursing Documentation, Vital Signs Vital Signs: Last Vital Signs Temp 98.1 F 10/31/16 13:45 Pulse 66 10/31/16 14:57 Resp 14 10/31/16 14:57 BP 172/59 H 10/31/16 14:57 Pulse Ox 98 10/31/16 14:57 - Medical History PMH: Arthritis, Asthma, Gastritis, HTN, Hypercholesterolemia, Osteoporosis, End Stage Renal Disease Surgical History: Coronary Stent (2016) - [facility] Procedures DESTRUCTION OF ASCENDING COLON, ENDO (01/19/16) DESTRUCTION OF DUODENUM, ENDO (01/19/16) DILATION OF RIGHT POSTERIOR TIBIAL ARTERY, PERC APPROACH (04/18/15) EXCISION OF CECUM, ENDO (06/29/15) EXCISION OF STOMACH, ENDO, DIAGN (09/11/16) EXCISION OF TRANSVERSE COLON, ENDO, DIAGN (06/29/15) INSERTION OF INFUSION DEV INTO SUP VENA CAVA, PERC APPROACH (06/29/15) INSPECTION OF LOWER INTESTINAL TRACT, ENDO (09/11/16) INTRODUCE OF OTH THROMBOLYTIC INTO PERIPH ART, PERC APPROACH (04/18/15) PLAIN RADIOGRAPHY OF AORTA, BI LE ART USING L OSM CONTRAST (04/18/15) TRANSFUSE NONAUT FROZEN PLASMA IN PERIPH VEIN, PERC (01/19/16) TRANSFUSE NONAUT PLATELETS IN PERIPH VEIN, PERC (01/19/16) TRANSFUSE NONAUT RED BLOOD CELLS IN PERIPH VEIN, PERC (01/19/16) ULTRASONOGRAPHY OF FEMORAL ARTERY (04/18/15) Family History: States: No Known Family Hx - Social History Hx Tobacco Use: No Hx Alcohol Use: No Hx Substance Use: No - Immunization History Hx Tetanus Toxoid Vaccination: No Hx Influenza Vaccination: Yes (03/2016) Hx Pneumococcal Vaccination: Yes Review Of Systems Constitutional: Negative for: Fever, Chills Cardiovascular: Negative for: Chest Pain Respiratory: Negative for: Shortness of Breath Gastrointestinal: Negative for: Nausea, Vomiting Musculoskeletal: Positive for: Foot Pain. Negative for: Leg Pain Skin: Negative for: Rash Neurological: Negative for: Weakness, Numbness Physical Exam - Physical Exam Appears: Other (Elderly) Skin: Warm, Dry, No Rash Head: Atraumatic, Normacephalic Eye(s): bilateral: Normal Inspection Oral Mucosa: Moist Neck: Normal ROM Chest: Symmetrical Cardiovascular: Rhythm Regular Respiratory: Normal Breath Sounds, No Rales, No Rhonchi, No Wheezing Extremity: Tenderness (to the plantar surface of right foot), No Pedal Edema, No Calf Tenderness, No Deformity, Other ( mild erythema to dorsum of right foot , 1x1cm chronic ulcer to right first MTP, Foot warm to touch, no cyanosis ) Pulses: Left Dorsalis Pedis: Decreased (Greater than right), Right Dorsalis Pedis: Decreased Neurological/Psych: Oriented x3, Normal Speech Gait: Steady ED Course And Treatment - Laboratory Results Result Diagrams: 10/31/16 13:13 10/31/16 13:13 O2 Sat by Pulse Oximetry: 97 (RA) Pulse Ox Interpretation: Normal Medical Decision Making Medical Decision Making: Impression: foot pain h.o PVD Plan: * Blood work * UA Progress, Reasses and Dispo: 12:04pm -Dr. Victor who is familiar with patient states she has Chronic Renal Insufficiency and PVD no immediate intervention needed [id number] Piña who recommends observation admission and will see patient inpatient Contact hospitalist who admits for Dr Nicole, and Dr Harish Villalba accepts case Disposition - Disposition Disposition: HOSPITALIZED Disposition Time: 14:25 Condition: STABLE - POA Present On Arrival: None - Clinical Impression Clinical Impression: CKD (chronic kidney disease), Peripheral vascular disease, Right foot pain - PA / DIRECTOR OF STRATEGIC COMMUNICATIONS / Resident Statement MD/DO has reviewed & agrees with the documentation as recorded. - Scribe Statement The provider has reviewed the documentation as recorded by the Teresaiblay Ibrahim All medical record entries made by the Devin were at my direction and personally dictated by me. I have reviewed the chart and agree that the record accurately reflects my personal performance of the history, physical exam, medical decision making, and the department course for this patient. I have also personally directed, reviewed, and agree with the discharge instructions and disposition. Decision To Admit - Pt Status Changed To: Hospital Disposition Of: Observation - . Bed Request Type: Regular Admitting Physician: Edison Villalba Patient Diagnosis: CKD (chronic kidney disease), Peripheral vascular disease, Right foot pain
[2016-10-31 13:17] LABS: BASO # 0.1 K/uL (0.0-0.2); BASO % 0.7 % (0.0-2.0); EOS # 0.8 K/uL (0.0-0.7); EOS % 9.4 % (0.0-4.0); HEMATOCRIT 31.5 % (34.0-47.0); LYMPH # 1.1 K/uL (1.0-4.3); LYMPH % 13.1 % (20.0-40.0); MEAN CELL VOLUME 90.8 fL (81.0-99.0); MEAN CORPUSCULAR HEMOGLOBIN 29.6 pg (27.0-31.0); MEAN CORPUSCULAR HGB CONC 32.6 g/dL (33.0-37.0); MEAN PLATELET VOLUME 7.7 fL (7.2-11.7); MONO # 0.9 K/uL (0.0-0.8); MONO % 10.8 % (0.0-10.0); RED CELL DISTRIBUTION WIDTH 14.6 % (11.5-14.5); WHITE BLOOD COUNT 8.7 K/uL (4.8-10.8)
[2016-10-31 13:25] LABS: INR 1.1; POTASSIUM 4.7 mmol/L (3.6-5.2)
[2016-10-31 13:27] LABS: ALB/GLOB RATIO 0.8 (1.0-2.1); BILIRUBIN,TOTAL 0.4 mg/dL (0.2-1.3); CALCIUM 9.6 mg/dl (8.6-10.4); TOTAL PROTEIN 7.3 g/dL (6.3-8.3)
[2016-10-31 13:37] LABS: RBC URINE 1 /hpf (0-3); URINE BACTERIA RARE (<OCC); URINE BILIRUBIN NEGATIVE (NEGATIVE); URINE BLOOD NEGATIVE (NEGATIVE); URINE COLOR Yellow (YELLOW); URINE GLUCOSE (UA) NORMAL (Normal); URINE KETONE NEGATIVE (NEGATIVE); URINE LEUKOCYTE ESTERASE 2+ Leu/uL (Negative); URINE PROTEIN NEGATIVE (NEGATIVE); URINE UROBILINOGEN NORMAL mg/dL (0.2-1.0); WBC URINE 23 /hpf (0-5)
[2016-10-31] MEDS ORDERED: Albuterol HFA 90 mcg/actuation (8 g) INH PRN (16:27)
--- NOTE | 2016-10-31 16:52 | CP.PCM.HP ---
<Junior Reynoso - Last Filed: 10/31/16 16:18> History of Present Illness - History of Present Illness History of Present Illness: CC: Right foot pain 81 year old female with past medical history of PVD, DM, HTN, hyperlipidemia, CAD s/p stent, anemia, CKD, and gastritis presents to the ED complaining of right foot pain. Patient's son at bedside provided Upper Sorbian translation. Patient started having right foot pain intermittently for the past 1 year. Patient was hospitalized this July for the similar issue. The pain became worse 2 days ago. The pain is located at plantar surface of her right foot. She describes the pain as sharp in quality, non radiating, rates 10/10 at the worst. Patient tried taking Percocet on the first day which provided some pain relief, but it did not help on the second day. Patient uses a walker to ambulate at baseline. She denies having any trauma to the foot. Patient was prescribed a specialized boot to help her walk, but she is complaining it is causing too much friction on the side of her foot. She denies headache, fever, chills, shortness of breath, chest pain, abdominal, nausea, vomiting, or diarrhea. PMD: Dr. Nicole, Cardio: Dr. Piña PMHx: PVD, DM, HTN, hyperlipidemia, gastritis, CAD s/p stent, anemia, CKD stage III PSx: Valve replacement (2016), Corneal transplant (2015) SocHx: former tobacco smoker for 2 years, alcohol, and drug use. Lives in an apartment with family Allergies: NKDA Family Hx: patient denies Medications: protonix, hydralazine, losartan, vitamin D, colace, lasix, ASA, tylenol, crestor Present on Admission - Present on Admission Any Indicators Present on Admission: No History of DVT/PE: No History of Uncontrolled Diabetes: No Review of Systems - Constitutional Constitutional: As Per HPI. absent: Chills, Fever, Lethargy - EENT Eyes: As Per HPI. absent: Blurred Vision, Change in Vision Ears: As Per HPI. absent: Disequilibrium, Dizziness Nose/Mouth/Throat: As Per HPI. absent: Nasal Trauma, Nose Pain - Breasts Breasts: As Per HPI - Cardiovascular Cardiovascular: As Per HPI. absent: Chest Pain, Edema, Leg Edema, Syncope - Respiratory Respiratory: As Per HPI. absent: Cough, Dyspnea - Gastrointestinal Gastrointestinal: As Per HPI. absent: Abdominal Pain, Constipation, Diarrhea, Nausea, Vomiting - Genitourinary Genitourinary: As Per HPI. absent: Flank Pain, Hematuria, Freq UTI - Musculoskeletal Musculoskeletal: As Per HPI Additional comments: Right foot pain - Integumentary Integumentary: As Per HPI, Skin Ulcer (medial right foot) - Neurological Neurological: As Per HPI. absent: Dizziness, Numbness - Psychiatric Psychiatric: As Per HPI. absent: Anxiety, Confusion, Depression - Endocrine Endocrine: As Per HPI - Hematologic/Lymphatic Hematologic: As Per HPI Past Patient History - Infectious Disease Hx of Infectious Diseases: None - Tetanus Immunizations Tetanus Immunization: Unknown - Past Medical History & Family History Past Medical History?: Yes - Past Social History Smoking Status: Former Smoker - CARDIAC Hx Hypercholesterolemia: Yes Hx Hypertension: Yes - PULMONARY Hx Asthma: Yes - NEUROLOGICAL Hx Neurological Disorder: No - HEENT Hx HEENT Problems: Yes Hx Blind: Yes Other/Comment: [employer]. 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 - RENAL Hx Chronic Kidney Disease: No - ENDOCRINE/METABOLIC Hx Diabetes Mellitus Type 2: Yes - HEMATOLOGICAL/ONCOLOGICAL Hx Blood Disorders: Yes Hx Blood Transfusions: Yes Hx Blood Transfusion Reaction: No - INTEGUMENTARY Hx Dermatological Problems: No - MUSCULOSKELETAL/RHEUMATOLOGICAL Hx Arthritis: Yes Hx Osteoporosis: Yes - GASTROINTESTINAL Hx Gastritis: Yes - GENITOURINARY/GYNECOLOGICAL Hx Genitourinary Disorders: No Other/Comment: s/p hysterectomy as per son done >20 yrs ago - PSYCHIATRIC Hx Substance Use: No - SURGICAL HISTORY Hx Coronary Stent: Yes (2016) - ANESTHESIA Hx Anesthesia: Yes Hx Anesthesia Reactions: No Meds Allergies/Adverse Reactions: Allergies Allergy/AdvReac Type Severity Reaction Status Date / Time No Known Allergies Allergy Verified 10/31/16 11:31 Physical Exam - Constitutional Appears: Non-toxic, No Acute Distress - Head Exam Head Exam: ATRAUMATIC, NORMAL INSPECTION - Eye Exam Eye Exam: Normal appearance - ENT Exam ENT Exam: Mucous Membranes Moist - Neck Exam Neck exam: Positive for: Normal Inspection - Respiratory Exam Respiratory Exam: Clear to Auscultation Bilateral, NORMAL BREATHING PATTERN. absent: Respiratory Distress - Cardiovascular Exam Cardiovascular Exam: REGULAR RHYTHM, +S1, +S2 - GI/Abdominal Exam GI & Abdominal Exam: Normal Bowel Sounds, Soft. absent: Tenderness - Extremities Exam Extremities exam: Positive for: normal capillary refill, tenderness (Right foot plantar surface tenderness near the ball of the foot), pedal pulses present. Negative for: joint swelling, pedal edema Additional comments: Old skin ulcer located at the medial aspect of right foot with dark discoloration. No erythema, no cyanosis, no significant temperature different between 2 lower extremities. - Back Exam Back exam: NORMAL INSPECTION - Neurological Exam Neurological exam: Alert, Oriented x3 - Psychiatric Exam Psychiatric exam: Normal Affect, Normal Mood - Skin Skin Exam: Dry, Warm Results - Vital Signs Recent Vital Signs: Last Vital Signs Temp 98.1 F 10/31/16 13:45 Pulse 66 10/31/16 14:57 Resp 14 10/31/16 14:57 BP 172/59 H 10/31/16 14:57 Pulse Ox 98 10/31/16 14:57 - Labs Result Diagrams: 10/31/16 13:13 10/31/16 13:13 Assessment & Plan - Assessment and Plan (Free Text) Assessment: Right foot pain secondary to history PAD/PVD -Vascular consult, Dr. Victor help appreciated -No surgical intervention indicated at this time -Follow up Lower extremity artery duplex Acute on CKD stage III -Nephrology consult, Dr. Green help appreciated -IVF NS @60ml/hr -Hold Lasix Hx CAD s/p stent -Cardiology consult, Dr. Piña help appreciated -Crestor 20mg PO QHS -ASA 81mg PO Hx DM 2 -RISS -Accucheck ACHS -F/U A1C, 6.6 earlier this year Hx HTN -Hydralazine 100mg PO TID -Losartan 50mg PO -Hold Lasix due to ARF HLD -Crestor 20mg PO QHS History of anemia likely secondary to CKD -Monitor CBC -Iron was low in prior admission -Start Feosol 325mg BID History of Heart valve replacement -Unspecified, confirm with cardiology History of GI bleed -Colonoscopy from September showed diverticulitis -Upper EGD showed hiatal hernia -Planned outpatient capsule endoscopy with Dr. Mcguire Prophylactic measures -Tylenol 650mg prn -Vitamin D 1000u daily -Colace 100mg po BID -SCD left LE (no chemical anticoag due to Hx of GI bleed) Case Discussed with attending Dr. Villalba Decision To Admit - . Admitting Physician: Edison Villalba <Edison Villalba - Last Filed: 10/31/16 19:05> Results - Vital Signs Recent Vital Signs: Last Vital Signs Temp 98.3 F 10/31/16 17:30 Pulse 67 10/31/16 17:30 Resp 20 10/31/16 17:30 BP 208/61 H 10/31/16 17:30 Pulse Ox 97 10/31/16 17:44 - Labs Result Diagrams: 10/31/16 13:13 10/31/16 13:13 Labs: Laboratory Results - last 24 hr 10/31/16 16:36 POC Glucose (mg/dL) 102 Attending/Attestation - Attestation I have personally seen and examined this patient.: Yes I have fully participated in the care of the patient.: Yes I have reviewed all pertinent clinical information: Yes Notes (Text): 10/31/16 19:02 Patient was seen and examined shortly after she was brought to the medical floor with Son Emory [phone] present. History, Physical, Assessment and Plan were thoroughly gone over with the Systems Integrator. In addition to the above in Exam: Right Medial Lateral Foot Ulcer at the base of the Toe #1 is 2 cm by 1.5 cm Right Pupil is round and reactive to light (history of right eye blindness). Left Pupil is irregularly shaped and nonreactive to light (can only see shadows) . Edison Villalba D.O.
[2016-10-31] MEDS ORDERED: Sodium Chloride 0.9% 1,000 ML IV SCH (17:15)
--- NOTE | 2016-10-31 17:36 | CP.PCM.CON ---
History of Present Illness - History of Present Illness History of Present Illness: General Surgery consult note for Dr. Victor HPI: Patient is a 81 year old female with past medical history of PVD, DM, HTN, hyperlipidemia, CAD s/p stent, anemia, CKD, and gastritis presents to the ED complaining of right foot pain that started a couple of days ago. Surgical consult was placed for evaluation of PVD. Patient's son, who was at bedside, stated that patient's pain is more localized to the plantar region and it is exacerbated by walking. Patient denies fever, chills,. nausea, vomiting, headache and numbness and tingling in her right foot. PMHx: DM, HTN, hyperlipidemia, gastritis, PVD. CAD s/p stent, anemia, CKD stage III PSHx: Valve replacement (2016), Corneal transplant (2014) Allergies: NKDA Social history: Lives with family, former tobacco smoker for 2 years, alcohol, and drug use. Review of Systems - Constitutional Constitutional: absent: Chills, Fever, Headache - Cardiovascular Cardiovascular: absent: Chest Pain, Chest Pain at Rest, Diaphoresis, Dyspnea, Palpitations, Pedal Edema - Respiratory Respiratory: absent: Cough, Dyspnea - Gastrointestinal Gastrointestinal: absent: Abdominal Pain, Nausea, Vomiting - Neurological Neurological: Dizziness. absent: Numbness, Headaches, Paresthesias, Radicular Pain, Restless Legs, Tingling Past Patient History - Infectious Disease Hx of Infectious Diseases: None - Tetanus Immunizations Tetanus Immunization: Unknown - Past Medical History & Family History Past Medical History?: Yes - Past Social History Smoking Status: Former Smoker - CARDIAC Hx Hypercholesterolemia: Yes Hx Hypertension: Yes - PULMONARY Hx Asthma: Yes - NEUROLOGICAL Hx Neurological Disorder: No - HEENT Hx HEENT Problems: Yes Hx Blind: Yes Other/Comment: [employer]. 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 - RENAL Hx Chronic Kidney Disease: No - ENDOCRINE/METABOLIC Hx Diabetes Mellitus Type 2: Yes - HEMATOLOGICAL/ONCOLOGICAL Hx Blood Disorders: Yes Hx Blood Transfusions: Yes Hx Blood Transfusion Reaction: No - INTEGUMENTARY Hx Dermatological Problems: No - MUSCULOSKELETAL/RHEUMATOLOGICAL Hx Arthritis: Yes Hx Osteoporosis: Yes - GASTROINTESTINAL Hx Gastritis: Yes - GENITOURINARY/GYNECOLOGICAL Hx Genitourinary Disorders: No Other/Comment: s/p hysterectomy as per son done >20 yrs ago - PSYCHIATRIC Hx Substance Use: No - SURGICAL HISTORY Hx Coronary Stent: Yes (2016) - ANESTHESIA Hx Anesthesia: Yes Hx Anesthesia Reactions: No Meds Allergies/Adverse Reactions: Allergies Allergy/AdvReac Type Severity Reaction Status Date / Time No Known Allergies Allergy Verified 10/31/16 11:31 - Medications Medications: Current Medications Acetaminophen (Tylenol 325mg Tab) 650 mg PO Q6 PRN PRN Reason: Pain, Mild (1-3) Albuterol (Ventolin Hfa 90 Mcg/Actuation (8 G)) 1 puff INH RQ6 PRN PRN Reason: Shortness of Breath Aspirin (Aspirin Chewable) 81 mg PO DAILY KENJI Docusate Sodium (Colace) 100 mg PO BID KENJI Ergocalciferol (Drisdol 50,000 Intl Units Cap) 1 cap PO QWK KENJI Ferrous Sulfate (Feosol) 325 mg PO BID KENJI Hydralazine HCl (Apresoline) 100 mg PO TID KENJI Sodium Chloride (Sodium Chloride 0.9%) 1,000 mls @ 60 mls/hr IV .[id number] KENJI Insulin Human Regular (Novolin R) 0 unit SC ACHS KENJI PRN Reason: Protocol Losartan Potassium (Cozaar) 50 mg PO DAILY KENJI Morphine Sulfate (Morphine) 1 mg IVP Q6 PRN PRN Reason: Pain, moderate (4-7) Last Admin: 10/31/16 16:36 Dose: 1 mg Morphine Sulfate (Morphine) 2 mg IVP Q6 PRN PRN Reason: Pain, severe (8-10) Pantoprazole Sodium (Protonix Ec Tab) 40 mg PO DAILY KENJI Rosuvastatin Calcium (Crestor) 20 mg PO HS [facility] [place] Physical Exam - Constitutional Appears: No Acute Distress - Head Exam Head Exam: ATRAUMATIC, NORMAL INSPECTION - Eye Exam Eye Exam: EOMI, Normal appearance - Respiratory Exam Respiratory Exam: Clear to Auscultation Bilateral, NORMAL BREATHING PATTERN - Cardiovascular Exam Cardiovascular Exam: REGULAR RHYTHM, +S1, +S2 - GI/Abdominal Exam GI & Abdominal Exam: Normal Bowel Sounds, Soft - Extremities Exam Extremities exam: Positive for: pedal pulses present. Negative for: calf tenderness, pedal edema, tenderness Additional comments: Pedal pulses ( DP AND PT ) present with palpation and with doppler Right plantar surface pain - Neurological Exam Neurological exam: Alert, Oriented x3 - Psychiatric Exam Psychiatric exam: Normal Affect, Normal Mood - Skin Skin Exam: Dry, Normal Color, Warm Results - Vital Signs Recent Vital Signs: Last Vital Signs Temp 98.1 F 10/31/16 13:45 Pulse 66 10/31/16 14:57 Resp 14 10/31/16 14:57 BP 172/59 H 10/31/16 14:57 Pulse Ox 97 10/31/16 16:55 - Labs Result Diagrams: 10/31/16 13:13 10/31/16 13:13 Labs: Laboratory Results - last 24 hr 10/31/16 16:36 POC Glucose (mg/dL) 102 Assessment & Plan - Assessment and Plan (Free Text) Assessment: 81 year old female with PMHx of PVD with right plantar surface pain Plan: -No surgical intervention at this time - Pain control as needed - Medical management as per primary team -Further recommendation as per Dr. Kayleigh Wilson, PGY-1
[2016-10-31 17:48] VITALS: RESP 20
[2016-10-31] MEDS: (Novolin R) Insulin Human Regular 100 units/ml vial SC SCH ×2 (17:55→22:19)
[2016-10-31 19:57] LABS: PHOSPHOROUS 3.7 mg/dL (2.5-4.5)
[2016-11-01] MEDS: (Novolin R) Insulin Human Regular 100 units/ml vial SC SCH ×4 (08:15→22:02)
[2016-11-01 08:26] LABS: BASO # 0.1 K/uL (0.0-0.2); BASO % 1.4 % (0.0-2.0); EOS # 0.7 K/uL (0.0-0.7); EOS % 11.1 % (0.0-4.0); HEMATOCRIT 35.7 % (34.0-47.0); LYMPH # 1.2 K/uL (1.0-4.3); LYMPH % 18.5 % (20.0-40.0); MEAN CELL VOLUME 91.9 fL (81.0-99.0); MEAN CORPUSCULAR HEMOGLOBIN 29.5 pg (27.0-31.0); MEAN CORPUSCULAR HGB CONC 32.1 g/dL (33.0-37.0); MEAN PLATELET VOLUME 8.8 fL (7.2-11.7); MONO # 0.6 K/uL (0.0-0.8); MONO % 8.9 % (0.0-10.0); NRBC % 0.3 % (0.0-2.0); RED CELL DISTRIBUTION WIDTH 14.8 % (11.5-14.5); WHITE BLOOD COUNT 6.3 K/uL (4.8-10.8)
[2016-11-01] MEDS ORDERED: Sodium Chloride 0.45% 1,000 ML IV SCH (08:30)
[2016-11-01 08:49] LABS: POTASSIUM 4.3 mmol/L (3.6-5.2)
[2016-11-01 08:52] LABS: CALCIUM 9.4 mg/dl (8.6-10.4)
[2016-11-01] MEDS: Pantoprazole 40 mg EC Tab PO SCH (09:17)
[2016-11-01] MEDS ORDERED: Ergocalciferol 50,000 Intl Units Cap PO SCH (10:00)
--- NOTE | 2016-11-01 10:38 | CP.PCM.PN ---
Subjective - Date & Time of Evaluation Date of Evaluation: 11/01/16 Time of Evaluation: 10:15 - Subjective Subjective: Hospitalist Progress Note Very pleasant 81 year old female (PMHx PAD/PVD, CKD Stage III, DM 2, CAP with Stents, HTN, HLD, Anemia Secondary to CKD, Heart Valve Replacement, GI Bleed in September 2016) who was admitted on 10/31/16 for intractable right foot pain despite the use of Percocet at home. She was placed on low dose of Morphine Q6H PRN as needed and this has resolved her pain. She was evaluated by Vascular Surgeon Dr. Victor and NO surgical intervention at this time. However, patient was also noted to be have Acute on Chronic Renal Failure. Her baseline BUN/Cr is 10/ 1.4 with eGFR of 36 in 2016 and she was found to have a BUN/Cr of 35/2.2 with eGFR at 21 on presentation. Her Lasix was discontinued and she was given gentle hydration of NS @65 ml per hour however this had to be discontinued after roughly 500 ml as her blood pressure became elevated. Please see individual Assessment and Plan below for further details. ROS: Her right foot pain is controlled on the Morphine Her last bowel movement was on 10/31/16 before she came to the ER NO burning/pain with urination NO Chest Pain/Palpitations NO SOB/Cough/Wheezing NO abdominal pain, NO n/v/c NO other complaints upon FULL ROS Exam: General: AAOx3, NAD, Exam performed with Son Emory [phone] present and he helped to translate Nepali) HEENT: NCA, Right Pupil is round and reactive to light (history of right eye blindness). Left Pupil is irregularly shaped and nonreactive to light (can only see shadows). NO cervical/supraclavicular/submandibular lymphadenopathy, NO pharyngeal erythema/exudate Cardio: NS1 and NS2, Systolic Ejection Murmur appreciated in all of the auscultatory roper Respiratory: Bibasilar Faint Inspiratory Rales GI: BSx4, Soft, NT, ND, NO HSM, NO guarding/rebound tenderness Ext: Pulses are strong and equal, NO edema, Warm, NO cyanosis/clubbing, Capillary Refill is 2 seconds, Right Medial Lateral Foot Ulcer at the base of the Toe #1 is 2 cm by 1.5 cm without surrounding signs of cellulitis (this has been present for the past month due podiatry boot placed at senior care as per Son Emory) Assessment and Plan: 1). Right foot pain secondary to history PAD/PVD -Vascular consult, Dr. Victor help appreciated -No surgical intervention indicated at this time -Follow up Lower extremity artery duplex 2). Acute on CKD stage III -Nephrology consult, Dr. Peter amezquita appreciated -IVF NS @60ml/hr was held secondary to elevated blood pressure -Continue to Hold Lasix 3). Hx CAD s/p stent -Cardiology consult, Dr. Wang amezquita appreciated -Crestor 20mg PO QHS -ASA 81mg PO 4). Hx DM 2 -RISS -Accucheck ACHS -F/U A1C, 6.6 earlier this year 5). Hx HTN -Hydralazine 100mg PO TID -Losartan 50mg PO was increased to 50 mg PO 2x/day starting at 10 PM 11/01/16 -Norvasc 5 mg PO QHS to start on 11/01/16 10 PM -Holding Lasix due to ARF 6). HLD -Crestor 20mg PO QHS 7). History of anemia likely secondary to CKD -Monitor CBC -Iron was low in prior admission -Start Feosol 325mg BID 8). History of Heart valve replacement -Unspecified, confirm with cardiology 9). History of GI bleed -Colonoscopy from September 2016 showed diverticulosis -Upper EGD showed hiatal hernia -Planned outpatient capsule endoscopy with Dr. Mcguire -HOLD prophylactic anticoagulation 10). Prophylactic measures -Tylenol 650mg prn -Vitamin D 1000u daily -Colace 100mg po BID -SCD left LE (no chemical anticoagulation due to recent Hx of GI bleed) Once patient's blood pressure is better under control we will discharge patient. Edison Villalba D.O. Objective - Vital Signs/Intake and Output Vital Signs (last 24 hours): Temp Pulse Resp BP Pulse Ox 98.7 F 70 20 182/68 H 95 11/01/16 08:32 11/01/16 08:32 11/01/16 08:32 11/01/16 08:32 11/01/16 08:32 Intake and Output: 11/01/16 11/01/16 06:59 18:59 Intake Total 480 Balance 480 - Medications Medications: Current Medications Acetaminophen (Tylenol 325mg Tab) 650 mg PO Q6 PRN PRN Reason: Pain, Mild (1-3) Albuterol (Ventolin Hfa 90 Mcg/Actuation (8 G)) 1 puff INH RQ6 PRN PRN Reason: Shortness of Breath Aspirin (Aspirin Chewable) 81 mg PO DAILY [facility] Last Admin: 11/01/16 09:16 Dose: 81 mg Docusate Sodium (Colace) 100 mg PO BID [facility] Last Admin: 11/01/16 09:16 Dose: 100 mg Ergocalciferol (Drisdol 50,000 Intl Units Cap) 1 cap PO QWK [facility] Last Admin: 11/01/16 09:16 Dose: 1 cap Ferrous Sulfate (Feosol) 325 mg PO BID [facility] Last Admin: 11/01/16 09:16 Dose: 325 mg Heparin Sodium (Porcine) (Heparin) 5,000 units SC Q8 [facility] Hydralazine HCl (Apresoline) 100 mg PO TID [facility] Last Admin: 11/01/16 09:15 Dose: 100 mg Sodium Chloride (Sodium Chloride 0.45%) 1,000 mls @ 80 mls/hr IV .[id number] [facility] Insulin Human Regular (Novolin R) 0 unit SC ACHS [facility] PRN Reason: Protocol Last Admin: 11/01/16 08:15 Dose: Not Given Losartan Potassium (Cozaar) 50 mg PO Q12H [facility] Morphine Sulfate (Morphine) 1 mg IVP Q6 PRN PRN Reason: Pain, moderate (4-7) Last Admin: 10/31/16 16:36 Dose: 1 mg Morphine Sulfate (Morphine) 2 mg IVP Q6 PRN PRN Reason: Pain, severe (8-10) Pantoprazole Sodium (Protonix Ec Tab) 40 mg PO DAILY [facility] Last Admin: 11/01/16 09:17 Dose: 40 mg Rosuvastatin Calcium (Crestor) 20 mg PO HS [facility] Last Admin: 10/31/16 21:45 Dose: 20 mg - Labs Labs: 11/01/16 08:14 11/01/16 08:14 PT 11.9 SECONDS (9.7-12.2) 10/31/16 13:13 INR 1.1 10/31/16 13:13 APTT 37 SECONDS (21-34) H 10/31/16 13:13
--- NOTE | 2016-11-01 14:14 | CP.PCM.CON ---
History of Present Illness - History of Present Illness History of Present Illness: pt seen and examined, full consult is dictated #[id number] 1.caki on ckd-3 2. ckd-3 sec to htn nephrosclerosis 3. r/p PAD 4. uncontrolled htn start ivf 1/2 ns at 70 ml/hr c/w hydralazine and amlodipine and titrate as needed check bmp, pth in am Past Patient History - Infectious Disease Hx of Infectious Diseases: None - Tetanus Immunizations Tetanus Immunization: Unknown - Past Medical History & Family History Past Medical History?: Yes - Past Social History Smoking Status: Former Smoker - CARDIAC Hx Cardiac Disorders: Yes (CAD, Coronary stent) Hx Hypercholesterolemia: Yes Hx Hypertension: Yes - PULMONARY Hx Asthma: Yes - NEUROLOGICAL Hx Neurological Disorder: No - HEENT Hx HEENT Problems: Yes Hx Blind: Yes Other/Comment: [employer]. 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 - RENAL Hx Chronic Kidney Disease: No - ENDOCRINE/METABOLIC Hx Diabetes Mellitus Type 2: Yes - HEMATOLOGICAL/ONCOLOGICAL Hx Blood Disorders: Yes Hx Blood Transfusions: Yes Hx Blood Transfusion Reaction: No - INTEGUMENTARY Hx Dermatological Problems: No - MUSCULOSKELETAL/RHEUMATOLOGICAL Hx Arthritis: Yes - GASTROINTESTINAL Hx Gastritis: Yes - GENITOURINARY/GYNECOLOGICAL Hx Genitourinary Disorders: No Other/Comment: s/p hysterectomy as per son done >20 yrs ago - PSYCHIATRIC Hx Substance Use: No - SURGICAL HISTORY Hx Coronary Stent: Yes (2016) - ANESTHESIA Hx Anesthesia: Yes Hx Anesthesia Reactions: No Meds Allergies/Adverse Reactions: Allergies Allergy/AdvReac Type Severity Reaction Status Date / Time No Known Allergies Allergy Verified 10/31/16 11:31 - Medications Medications: Current Medications Acetaminophen (Tylenol 325mg Tab) 650 mg PO Q6 PRN PRN Reason: Pain, Mild (1-3) Albuterol (Ventolin Hfa 90 Mcg/Actuation (8 G)) 1 puff INH RQ6 PRN PRN Reason: Shortness of Breath Amlodipine Besylate (Norvasc) 5 mg PO HS [facility] Aspirin (Aspirin Chewable) 81 mg PO DAILY [facility] Last Admin: 11/01/16 09:16 Dose: 81 mg Docusate Sodium (Colace) 100 mg PO BID [facility] Last Admin: 11/01/16 09:16 Dose: 100 mg Ergocalciferol (Drisdol 50,000 Intl Units Cap) 1 cap PO QWK [facility] Last Admin: 11/01/16 09:16 Dose: 1 cap Ferrous Sulfate (Feosol) 325 mg PO BID [facility] Last Admin: 11/01/16 09:16 Dose: 325 mg Hydralazine HCl (Apresoline) 100 mg PO TID [facility] Last Admin: 11/01/16 13:54 Dose: 100 mg Insulin Human Regular (Novolin R) 0 unit SC ACHS [facility] PRN Reason: Protocol Last Admin: 11/01/16 11:58 Dose: Not Given Losartan Potassium (Cozaar) 50 mg PO Q12H [facility] Morphine Sulfate (Morphine) 1 mg IVP Q6 PRN PRN Reason: Pain, moderate (4-7) Last Admin: 10/31/16 16:36 Dose: 1 mg Morphine Sulfate (Morphine) 2 mg IVP Q6 PRN PRN Reason: Pain, severe (8-10) Pantoprazole Sodium (Protonix Ec Tab) 40 mg PO DAILY [facility] Last Admin: 11/01/16 09:17 Dose: 40 mg Rosuvastatin Calcium (Crestor) 20 mg PO HS [facility] Last Admin: 10/31/16 21:45 Dose: 20 mg Results - Vital Signs Recent Vital Signs: Last Vital Signs Temp 98.7 F 11/01/16 08:32 Pulse 70 11/01/16 08:32 Resp 20 11/01/16 08:32 BP 182/68 H 11/01/16 08:32 Pulse Ox 95 11/01/16 08:32 - Labs Result Diagrams: 11/01/16 08:14 11/01/16 08:14 Labs: Laboratory Results - last 24 hr 10/31/16 10/31/16 11/01/16 16:36 20:59 07:16 WBC RBC Hgb Hct MCV MCH MCHC RDW Plt Count MPV Neut % (Auto) Lymph % (Auto) [place] % (Auto) Eos % (Auto) Baso % (Auto) Neut # Lymph # [place] # Eos # Baso # Sodium Potassium Chloride Carbon Dioxide Anion Gap BUN Creatinine Est GFR ( Amer) Est GFR (Non-Af Amer) POC Glucose (mg/dL) 102 106 82 Random Glucose Calcium 11/01/16 11/01/16 11/01/16 08:14 08:14 11:19 WBC 6.3 RBC 3.89 Hgb 11.5 Hct 35.7 MCV 91.9 MCH 29.5 MCHC 32.1 L RDW 14.8 H Plt Count 264 MPV 8.8 Neut % (Auto) 60.1 Lymph % (Auto) 18.5 L [place] % (Auto) 8.9 Eos % (Auto) 11.1 H Baso % (Auto) 1.4 Neut # 3.8 Lymph # 1.2 [place] # 0.6 Eos # 0.7 Baso # 0.1 Sodium 139 Potassium 4.3 Chloride 105 Carbon Dioxide 21 L Anion Gap 17 BUN 31 H Creatinine 2.1 H Est GFR ( Amer) 27 Est GFR (Non-Af Amer) 23 POC Glucose (mg/dL) 100 Random Glucose 80 Calcium 9.4
[2016-11-01] MEDS: Sodium Chloride 0.45% 1,000 ML IV SCH (18:27)
[2016-11-01] MEDS ORDERED: Bisacodyl 5mg EC Tab PO ONE ×2 (21:00→22:15)
--- NOTE | 2016-11-01 22:34 | CP.PCM.CON ---
History of Present Illness - History of Present Illness History of Present Illness: CC: Right foot pain 81 year old female with past medical history of PVD, DM, HTN, hyperlipidemia, CAD s/p stent, anemia, CKD, and gastritis presents to the ED complaining of right foot pain. Patient's son at bedside provided Kyrgyz translation. Patient started having right foot pain intermittently for the past 1 year. Patient was hospitalized this July for the similar issue. The pain became worse 2 days ago. The pain is located at plantar surface of her right foot. She describes the pain as sharp in quality, non radiating, rates 10/10 at the worst. Patient tried taking Percocet on the first day which provided some pain relief, but it did not help on the second day. Patient uses a walker to ambulate at baseline. She denies having any trauma to the foot. Patient was prescribed a specialized boot to help her walk, but she is complaining it is causing too much friction on the side of her foot. She denies headache, fever, chills, shortness of breath, chest pain, abdominal, nausea, vomiting, or diarrhea. PMD: Dr. Nicole, Cardio: Dr. Piña PMHx: PVD, DM, HTN, hyperlipidemia, gastritis, CAD s/p stent, anemia, CKD stage III PSx: Valve replacement (2016), Corneal transplant (2015) SocHx: former tobacco smoker for 2 years, alcohol, and drug use. Lives in an apartment with family Allergies: NKDA Family Hx: patient denies Medications: protonix, hydralazine, losartan, vitamin D, colace, lasix, ASA, tylenol, crestor Present on Admission - Present on Admission Any Indicators Present on Admission: No History of DVT/PE: No History of Uncontrolled Diabetes: No Review of Systems - Constitutional Constitutional: As Per HPI. absent: Chills, Fever, Lethargy - EENT Eyes: As Per HPI. absent: Blurred Vision, Change in Vision Ears: As Per HPI. absent: Disequilibrium, Dizziness Nose/Mouth/Throat: As Per HPI. absent: Nasal Trauma, Nose Pain - Breasts Breasts: As Per HPI - Cardiovascular Cardiovascular: As Per HPI. absent: Chest Pain, Edema, Leg Edema, Syncope - Respiratory Respiratory: As Per HPI. absent: Cough, Dyspnea - Gastrointestinal Gastrointestinal: As Per HPI. absent: Abdominal Pain, Constipation, Diarrhea, Nausea, Vomiting - Genitourinary Genitourinary: As Per HPI. absent: Flank Pain, Hematuria, Freq UTI - Musculoskeletal Musculoskeletal: As Per HPI Additional comments: Right foot pain - Integumentary Integumentary: As Per HPI, Skin Ulcer (medial right foot) - Neurological Neurological: As Per HPI. absent: Dizziness, Numbness - Psychiatric Psychiatric: As Per HPI. absent: Anxiety, Confusion, Depression - Endocrine Endocrine: As Per HPI - Hematologic/Lymphatic Hematologic: As Per HPI Past Patient History - Infectious Disease Hx of Infectious Diseases: None - Tetanus Immunizations Tetanus Immunization: Unknown - Past Medical History & Family History Past Medical History?: Yes - Past Social History Smoking Status: Former Smoker - CARDIAC Hx Hypercholesterolemia: Yes Hx Hypertension: Yes - PULMONARY Hx Asthma: Yes - NEUROLOGICAL Hx Neurological Disorder: No - HEENT Hx HEENT Problems: Yes Hx Blind: Yes Other/Comment: [employer]. 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 - RENAL Hx Chronic Kidney Disease: No - ENDOCRINE/METABOLIC Hx Diabetes Mellitus Type 2: Yes - HEMATOLOGICAL/ONCOLOGICAL Hx Blood Disorders: Yes Hx Blood Transfusions: Yes Hx Blood Transfusion Reaction: No - INTEGUMENTARY Hx Dermatological Problems: No - MUSCULOSKELETAL/RHEUMATOLOGICAL Hx Arthritis: Yes Hx Osteoporosis: Yes - GASTROINTESTINAL Hx Gastritis: Yes - GENITOURINARY/GYNECOLOGICAL Hx Genitourinary Disorders: No Other/Comment: s/p hysterectomy as per son done >20 yrs ago - PSYCHIATRIC Hx Substance Use: No - SURGICAL HISTORY Hx Coronary Stent: Yes (2016) - ANESTHESIA Hx Anesthesia: Yes Hx Anesthesia Reactions: No Meds Allergies/Adverse Reactions: Allergies Allergy/AdvReac Type Severity Reaction Status Date / Time No Known Allergies Allergy Verified 10/31/16 11:31 Physical Exam - Constitutional Appears: Non-toxic, No Acute Distress - Head Exam Head Exam: ATRAUMATIC, NORMAL INSPECTION - Eye Exam Eye Exam: Normal appearance - ENT Exam ENT Exam: Mucous Membranes Moist - Neck Exam Neck exam: Positive for: Normal Inspection - Respiratory Exam Respiratory Exam: Clear to Auscultation Bilateral, NORMAL BREATHING PATTERN. absent: Respiratory Distress - Cardiovascular Exam Cardiovascular Exam: REGULAR RHYTHM, +S1, +S2 - GI/Abdominal Exam GI & Abdominal Exam: Normal Bowel Sounds, Soft. absent: Tenderness - Extremities Exam Extremities exam: Positive for: normal capillary refill, tenderness (Right foot plantar surface tenderness near the ball of the foot), pedal pulses present. Negative for: joint swelling, pedal edema Additional comments: Old skin ulcer located at the medial aspect of right foot with dark discoloration. No erythema, no cyanosis, no significant temperature different between 2 lower extremities. - Back Exam Back exam: NORMAL INSPECTION - Neurological Exam Neurological exam: Alert, Oriented x3 - Psychiatric Exam Psychiatric exam: Normal Affect, Normal Mood - Skin Skin Exam: Dry, Warm Past Patient History - Infectious Disease Hx of Infectious Diseases: None - Tetanus Immunizations Tetanus Immunization: Unknown - Past Medical History & Family History Past Medical History?: Yes - Past Social History Smoking Status: Former Smoker - CARDIAC Hx Cardiac Disorders: Yes (CAD, Coronary stent) Hx Hypercholesterolemia: Yes Hx Hypertension: Yes - PULMONARY Hx Asthma: Yes - NEUROLOGICAL Hx Neurological Disorder: No - HEENT Hx HEENT Problems: Yes Hx Blind: Yes Other/Comment: [employer]. 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 - RENAL Hx Chronic Kidney Disease: No - ENDOCRINE/METABOLIC Hx Diabetes Mellitus Type 2: Yes - HEMATOLOGICAL/ONCOLOGICAL Hx Blood Disorders: Yes Hx Blood Transfusions: Yes Hx Blood Transfusion Reaction: No - INTEGUMENTARY Hx Dermatological Problems: No - MUSCULOSKELETAL/RHEUMATOLOGICAL Hx Arthritis: Yes - GASTROINTESTINAL Hx Gastritis: Yes - GENITOURINARY/GYNECOLOGICAL Hx Genitourinary Disorders: No Other/Comment: s/p hysterectomy as per son done >20 yrs ago - PSYCHIATRIC Hx Substance Use: No - SURGICAL HISTORY Hx Coronary Stent: Yes (2015) - ANESTHESIA Hx Anesthesia: Yes Hx Anesthesia Reactions: No Meds Allergies/Adverse Reactions: Allergies Allergy/AdvReac Type Severity Reaction Status Date / Time No Known Allergies Allergy Verified 10/31/16 11:31 - Medications Medications: Current Medications Acetaminophen (Tylenol 325mg Tab) 650 mg PO Q6 PRN PRN Reason: Pain, Mild (1-3) Albuterol (Ventolin Hfa 90 Mcg/Actuation (8 G)) 1 puff INH RQ6 PRN PRN Reason: Shortness of Breath Amlodipine Besylate (Norvasc) 10 mg PO DAILY [facility] Last Admin: 11/01/16 22:08 Dose: 10 mg Aspirin (Aspirin Chewable) 81 mg PO DAILY [facility] Last Admin: 11/01/16 09:16 Dose: 81 mg Docusate Sodium (Colace) 100 mg PO BID [facility] Last Admin: 11/01/16 18:23 Dose: 100 mg Ergocalciferol (Drisdol 50,000 Intl Units Cap) 1 cap PO QWK [facility] Last Admin: 11/01/16 09:16 Dose: 1 cap Ferrous Sulfate (Feosol) 325 mg PO BID [facility] Last Admin: 11/01/16 18:23 Dose: 325 mg Hydralazine HCl (Apresoline) 100 mg PO TID [facility] Last Admin: 11/01/16 18:22 Dose: 100 mg Sodium Chloride (Sodium Chloride 0.45%) 1,000 mls @ 70 mls/hr IV .[id number] [facility] Last Admin: 11/01/16 18:27 Dose: 70 mls/hr Insulin Human Regular (Novolin R) 0 unit SC ACHS [facility] PRN Reason: Protocol Last Admin: 11/01/16 22:02 Dose: Not Given Losartan Potassium (Cozaar) 50 mg PO Q12H [facility] Last Admin: 11/01/16 22:08 Dose: 50 mg Morphine Sulfate (Morphine) 1 mg IVP Q6 PRN PRN Reason: Pain, moderate (4-7) Last Admin: 10/31/16 16:36 Dose: 1 mg Morphine Sulfate (Morphine) 2 mg IVP Q6 PRN PRN Reason: Pain, severe (8-10) Pantoprazole Sodium (Protonix Ec Tab) 40 mg PO DAILY [facility] Last Admin: 11/01/16 09:17 Dose: 40 mg Rosuvastatin Calcium (Crestor) 20 mg PO HS [facility] Last Admin: 11/01/16 22:09 Dose: 20 mg Results - Vital Signs Recent Vital Signs: Last Vital Signs Temp 98.4 F 11/01/16 16:00 Pulse 78 11/01/16 16:00 Resp 20 11/01/16 16:00 BP 180/69 H 11/01/16 16:00 Pulse Ox 97 11/01/16 16:00 - Labs Result Diagrams: 11/01/16 08:14 11/01/16 08:14 Labs: Laboratory Results - last 24 hr 11/01/16 11/01/16 11/01/16 07:16 08:14 08:14 WBC 6.3 RBC 3.89 Hgb 11.5 Hct 35.7 MCV 91.9 MCH 29.5 MCHC 32.1 L RDW 14.8 H Plt Count 264 MPV 8.8 Neut % (Auto) 60.1 Lymph % (Auto) 18.5 L [place] % (Auto) 8.9 Eos % (Auto) 11.1 H Baso % (Auto) 1.4 Neut # 3.8 Lymph # 1.2 [place] # 0.6 Eos # 0.7 Baso # 0.1 Sodium 139 Potassium 4.3 Chloride 105 Carbon Dioxide 21 L Anion Gap 17 BUN 31 H Creatinine 2.1 H Est GFR ( Amer) 27 Est GFR (Non-Af Amer) 23 POC Glucose (mg/dL) 82 Random Glucose 80 Calcium 9.4 11/01/16 11/01/16 11/01/16 11:19 16:22 21:06 WBC RBC Hgb Hct MCV MCH MCHC RDW Plt Count MPV Neut % (Auto) Lymph % (Auto) [place] % (Auto) Eos % (Auto) Baso % (Auto) Neut # Lymph # [place] # Eos # Baso # Sodium Potassium Chloride Carbon Dioxide Anion Gap BUN Creatinine Est GFR ( Amer) Est GFR (Non-Af Amer) POC Glucose (mg/dL) 100 101 96 Random Glucose Calcium Assessment & Plan - Assessment and Plan (Free Text) Assessment: Right foot pain secondary to history PAD/PVD -Vascular consult, Dr. Victor help appreciated -No surgical intervention indicated at this time -Follow up Lower extremity artery duplex Acute on CKD stage III -Nephrology consult, Dr. Green help appreciated -IVF NS @60ml/hr -Hold Lasix Hx CAD s/p stent -Crestor 20mg PO QHS -ASA 81mg PO Hx DM 2 -RISS -Accucheck ACHS -F/U A1C, 6.6 earlier this year Hx HTN -Hydralazine 100mg PO TID -Losartan 50mg PO -Hold Lasix due to ARF HLD -Crestor 20mg PO QHS History of anemia likely secondary to CKD -Monitor CBC -Iron was low in prior admission -Start Feosol 325mg BID History of Heart valve replacement -Unspecified, confirm with cardiology History of GI bleed -Colonoscopy from September showed diverticulitis -Upper EGD showed hiatal hernia -Planned outpatient capsule endoscopy with Dr. Mcguire Prophylactic measures -Tylenol 650mg prn -Vitamin D 1000u daily -Colace 100mg po BID -SCD left LE (no chemical anticoag due to Hx of GI bleed)
--- NOTE | 2016-11-02 03:07 | CON ---
DATE:11/01/2016 RENAL CONSULTATION The patient is located in room 356, bed 8. REQUESTED BY: Dr. Edison Villalba. REASON FOR FOLLOWUP: Acute renal failure, chronic kidney disease and for further evaluation. HISTORY OF PRESENT ILLNESS: Mrs. Cat Rolle is an 81 years old elderly female with past medical history significant for hypertension for about 15 to 20 years, diabetes for 10 years, hyperlipidemia status post volvulus surgery about 1 year ago, questionable TAVR, diverticulosis, history of rectal bleed x2; the last one is about a month ago and also chronic kidney disease who was now admitted with the chief complaints of pain in the right leg for the last 3 days and denies any headache, dizziness. Denies any chest pain or palpitation. Denies any fever or cough. Denies any nausea, vomiting, or diarrhea. PAST MEDICAL HISTORY: Significant for hypertension, 15 to 20 years, diabetes for 20 years, hyperlipidemia, chronic kidney disease, anemia, rectal bleed status post volvulus surgery, questionable TAVR. PAST SURGICAL HISTORY: Questionable volvulus surgery. ALLERGIES: NO KNOWN DRUG ALLERGIES. SOCIAL HISTORY: Denies any smoking, alcohol or drugs. PERSONAL HISTORY: She is a and she has 5 children. FAMILY HISTORY: Not significant. CURRENT MEDICATIOs: 1. Albuterol inhaler. 2. Aspirin 81 mg daily. 3. Colace 100 mg p.o. b.i.d. 4. Losartan 50 mg p.o. q. 12 hours. 5. Crestor 20 mg p.o. at bedtime. 6. Ergocalciferol 50,000 units p.o. every weekly. 7. Feosol 325 mg p.o. b.i.d. 8. Morphine sulfate 1-2 mg q. 6 hours p.r.n. 9. Amlodipine 5 mg at bedtime. 10. Novolin R for sliding scale. 11. Protonix 40 mg p.o. daily. 12. Tylenol 325 mg p.o. q. 6 hours. REVIEW OF SYSTEMS: Significant for pain in the right leg; otherwise, all other review of systems are reviewed and are negative. PHYSICAL EXAMINATION: VITAL SIGNS: Blood pressure 182/68, pulse is 70, respirations 20, temperature 98.7, saturation 95%. Height is 5 feet and weight 145 pounds. BMI 28.3. GENERAL: Mrs. Rolle is an 81 years old elderly female, moderately build, moderately nourished, not in acute distress. HEENT: Pupils are normal and reactive to light and accommodation. Conjunctiva pink. Sclera anicteric. Tongue is moist. Trachea is midline. LUNGS: Symmetric on both sides. Bilateral breath sounds present. Clear on auscultation. CARDIOVASCULAR: [place] at the fifth intercostal space, midclavicular line. S1 and S2 audible. No murmur. No gallop. ABDOMEN: Normal in appearance. Soft and tympanic. No guarding. No rigidity. No hepatosplenomegaly. No abdominal bruit. CENTRAL NERVOUS SYSTEM: The patient is alert, awake, and oriented x3. Nonfocal neuro examination. Cranial nerves II through XII grossly intact. Deep tendon reflexes are normal. Sensory and motor system is within normal limits. EXTREMITIES: No cyanosis. No clubbing. No edema. Patient has a small superficial ulcer with eschar on the medial aspect of the right big toe and also patient has tenderness in the mid foot. Dorsalis pedis pulses are feeble on both sides. LABORATORY DATA: Include as follows: as of 11/01/2016; WBC 6.3, hemoglobin 11.5, hematocrit is 35.7, and platelets 264. Sodium 139, potassium 4.3, chloride 105, CO2 of 21, BUN 31, creatinine 2.1, glucose 100, calcium 9.4. Urinalysis as of 10/31/2016, yellow, clear, pH of 6. Specific gravity 1.008. Protein negative. Glucose are normal. Ketone 72. Blood negative. Nitrites negative. Bilirubin negative. Urobilinogen normal, leukocyte esterase 2+, wbc's 23, rbc's 1, bacteria rare, yeast is few. Doppler of the lower extremity is pending report and review of the labs from the previous visits, her creatinine as of 09/11/2016 of 1.8; as of 09/15/2016, creatinine 1.3 and as of 10/31/2016, creatinine 2.2. Other laboratory reports as of 08/11/2016, free kappa light chains is 219.3 and free lambda chain is 83.3. Free kappa and lambda ratio is 2.63. As of 08/14/2016; serum immunofixation of faint lambda is present against dense polyclonal background. This may represent a reactive or inflammatory process and developing plasma cell disorder cannot be excluded. Protein electrophoresis as of 08/11/2016; faint band visible with overall polyclonal pattern in the gamma region. Other reports; ultrasound of the kidneys as of 08/11/2016; right kidney is 8.2 x 2.1 x 3.6 cm and the left kidney is 8.2 x 4.1 x 4.2 cm with increased echogenicity bilaterally. ASSESSMENT: In summary, Mrs. Rolle is an 81-year-old elderly female with history of hypertension, diabetes, status post vulvar surgery. She is status post rectal bleed x2 with chronic kidney disease, with baseline creatinine about 1.3 to 1.4, was admitted with right leg pain and increased BUN and creatinine and uncontrolled hypertension. 1. Renal failure, acute on chronic kidney disease, most likely secondary to mild intravascular volume depletion. 2. Chronic kidney disease, most likely secondary to hypertensive nephrosclerosis. 3. Rule out peripheral vascular disease with right leg pain. PLAN: We will give gentle IV hydration with normal saline at 70 mL per hour and monitor BUN and creatinine and also we will consider to increase amlodipine to 10 mg p.o. daily if blood pressure continued to be elevated tomorrow and continue hydralazine. We will follow with you. Thank you for allowing me to participate in your patient's care and also check PTH intact level. Roseann Green MD MTDClara
[2016-11-02] MEDS: Sodium Chloride 0.45% 1,000 ML IV SCH ×3 (06:00→21:32)
[2016-11-02 07:50] LABS: BASO # 0.1 K/uL (0.0-0.2); BASO % 0.9 % (0.0-2.0); EOS # 0.8 K/uL (0.0-0.7); EOS % 9.8 % (0.0-4.0); LYMPH # 1.1 K/uL (1.0-4.3); LYMPH % 13.4 % (20.0-40.0); MEAN CORPUSCULAR HEMOGLOBIN 29.4 pg (27.0-31.0); MEAN CORPUSCULAR HGB CONC 32.9 g/dL (33.0-37.0); MEAN PLATELET VOLUME 8.8 fL (7.2-11.7); MONO # 0.8 K/uL (0.0-0.8); MONO % 9.4 % (0.0-10.0); NRBC % 0.1 % (0.0-2.0); RED CELL DISTRIBUTION WIDTH 14.4 % (11.5-14.5); WHITE BLOOD COUNT 8.5 K/uL (4.8-10.8)
[2016-11-02 08:03] LABS: POTASSIUM 3.8 mmol/L (3.6-5.2)
[2016-11-02 08:05] LABS: BILIRUBIN,TOTAL 0.5 mg/dL (0.2-1.3)
[2016-11-02 08:06] LABS: ALB/GLOB RATIO 0.8 (1.0-2.1); MEAN CELL VOLUME 89.4 fL (81.0-99.0); TOTAL PROTEIN 6.9 g/dL (6.3-8.3)
[2016-11-02 08:07] LABS: CALCIUM 9.1 mg/dl (8.6-10.4)
[2016-11-02] MEDS: (Novolin R) Insulin Human Regular 100 units/ml vial SC SCH ×4 (08:14→21:25)
[2016-11-02] MEDS: Pantoprazole 40 mg EC Tab PO SCH (09:22)
--- NOTE | 2016-11-02 09:50 | CP.PCM.PN ---
<Sylvester Saldivar - Last Filed: 11/02/16 09:43> Subjective - Date & Time of Evaluation Date of Evaluation: 11/02/16 Time of Evaluation: 09:00 - Subjective Subjective: PGY3 on medicine Dr. Villalba service: Pt seen and examined at bedside this morning. Pt reports no pain overnight and no other complaints. Pt only used 1mg Morphine IVP since 10/31. BP overnight was 180s over high 60s. Objective - Vital Signs/Intake and Output Vital Signs (last 24 hours): Temp Pulse Resp BP Pulse Ox 97.6 F 75 20 167/70 H 95 11/02/16 08:09 11/02/16 08:09 11/02/16 08:09 11/02/16 08:09 11/02/16 08:09 Intake and Output: 11/02/16 11/02/16 06:59 18:59 Intake Total 810 560 Balance 810 560 - Medications Medications: Current Medications Acetaminophen (Tylenol 325mg Tab) 650 mg PO Q6 PRN PRN Reason: Pain, Mild (1-3) Albuterol (Ventolin Hfa 90 Mcg/Actuation (8 G)) 1 puff INH RQ6 PRN PRN Reason: Shortness of Breath Amlodipine Besylate (Norvasc) 10 mg PO DAILY [facility] Last Admin: 11/02/16 09:21 Dose: 10 mg Aspirin (Aspirin Chewable) 81 mg PO DAILY [facility] Last Admin: 11/02/16 09:21 Dose: 81 mg Docusate Sodium (Colace) 100 mg PO BID [facility] Last Admin: 11/02/16 09:21 Dose: 100 mg Ergocalciferol (Drisdol 50,000 Intl Units Cap) 1 cap PO QWK [facility] Last Admin: 11/01/16 09:16 Dose: 1 cap Ferrous Sulfate (Feosol) 325 mg PO BID [facility] Last Admin: 11/02/16 09:21 Dose: 325 mg Hydralazine HCl (Apresoline) 100 mg PO Q6H [facility] Last Admin: 11/02/16 09:20 Dose: 100 mg Sodium Chloride (Sodium Chloride 0.45%) 1,000 mls @ 70 mls/hr IV .[id number] [facility] Last Admin: 11/02/16 09:19 Dose: 70 mls/hr Insulin Human Regular (Novolin R) 0 unit SC ACHS [facility] PRN Reason: Protocol Last Admin: 11/02/16 08:14 Dose: Not Given Losartan Potassium (Cozaar) 50 mg PO Q12H [facility] Last Admin: 11/02/16 09:21 Dose: 50 mg Morphine Sulfate (Morphine) 1 mg IVP Q6 PRN PRN Reason: Pain, moderate (4-7) Last Admin: 10/31/16 16:36 Dose: 1 mg Morphine Sulfate (Morphine) 2 mg IVP Q6 PRN PRN Reason: Pain, severe (8-10) Pantoprazole Sodium (Protonix Ec Tab) 40 mg PO DAILY [facility] Last Admin: 11/02/16 09:22 Dose: 40 mg Rosuvastatin Calcium (Crestor) 20 mg PO HS [facility] Last Admin: 11/01/16 22:09 Dose: 20 mg - Labs Labs: 11/02/16 07:28 11/02/16 07:28 PT 11.9 SECONDS (9.7-12.2) 10/31/16 13:13 INR 1.1 10/31/16 13:13 APTT 37 SECONDS (21-34) H 10/31/16 13:13 - Constitutional Appears: Non-toxic, No Acute Distress - Head Exam Head Exam: NORMOCEPHALIC - Eye Exam Eye Exam: Normal appearance Pupil Exam: NORMAL ACCOMODATION - ENT Exam ENT Exam: Mucous Membranes Moist - Respiratory Exam Respiratory Exam: Clear to Ausculation Bilateral, NORMAL BREATHING PATTERN. absent: Wheezes - Cardiovascular Exam Cardiovascular Exam: REGULAR RHYTHM, +S1, +S2. absent: Gallop, Rubs - GI/Abdominal Exam GI & Abdominal Exam: Soft, Normal Bowel Sounds. absent: Tenderness - Extremities Exam Additional comments: right foot skin ulcer Assessment and Plan - Assessment and Plan (Free Text) Assessment: 1). Right foot pain secondary to history PAD/PVD -Vascular consult, Dr. Victor help appreciated -No surgical intervention indicated at this time -Follow up Lower extremity artery duplex -Patient only used 1mg Morphine IVP since 10/31. Pt can be discharged with Morphine PO 3mg q12H PRN. 2). Acute on CKD stage III -Nephrology consult, Dr. Green help appreciated -IVF 1/2NS @ 70 -Continue to Hold Lasix 3). Hx CAD s/p stent -Cardiology consult, Dr. Wang help appreciated -Crestor 20mg PO QHS -ASA 81mg PO 4). Hx DM 2 -RISS -Accucheck ACHS -F/U A1C, 6.6 earlier this year 5). Hx HTN -Hydralazine 100mg PO increased to q6H -Losartan 50mg PO was increased to 50 mg PO 2x/day starting at 10 PM 11/01/16 -Norvasc 10 mg PO QHS to start on 11/01/16 10 PM -Holding Lasix due to ARF 6). HLD -Crestor 20mg PO QHS 7). History of anemia likely secondary to CKD -Monitor CBC -Iron was low in prior admission -Start Feosol 325mg BID 8). History of Heart valve replacement -Unspecified, confirm with cardiology 9). History of GI bleed -Colonoscopy from September 2016 showed diverticulosis -Upper EGD showed hiatal hernia -Planned outpatient capsule endoscopy with Dr. Mcguire -HOLD prophylactic anticoagulation 10). Prophylactic measures -Tylenol 650mg prn -Vitamin D 1000u daily -Colace 100mg po BID -SCD left LE (no chemical anticoagulation due to recent Hx of GI bleed) <Edison Villalba - Last Filed: 11/02/16 16:35> Objective - Vital Signs/Intake and Output Vital Signs (last 24 hours): Temp Pulse Resp BP Pulse Ox 97.6 F 75 20 167/70 H 95 11/02/16 08:09 11/02/16 08:09 11/02/16 08:09 11/02/16 08:09 11/02/16 08:09 Intake and Output: 11/02/16 11/02/16 06:59 18:59 Intake Total 810 1700 Balance 810 1700 - Medications Medications: Current Medications Acetaminophen (Tylenol 325mg Tab) 650 mg PO Q6 PRN PRN Reason: Pain, Mild (1-3) Albuterol (Ventolin Hfa 90 Mcg/Actuation (8 G)) 1 puff INH RQ6 PRN PRN Reason: Shortness of Breath Amlodipine Besylate (Norvasc) 10 mg PO DAILY [facility] Last Admin: 11/02/16 09:21 Dose: 10 mg Aspirin (Aspirin Chewable) 81 mg PO DAILY [facility] Last Admin: 11/02/16 09:21 Dose: 81 mg Docusate Sodium (Colace) 100 mg PO BID [facility] Last Admin: 11/02/16 09:21 Dose: 100 mg Ergocalciferol (Drisdol 50,000 Intl Units Cap) 1 cap PO QWK [facility] Last Admin: 11/01/16 09:16 Dose: 1 cap Ferrous Sulfate (Feosol) 325 mg PO BID [facility] Last Admin: 11/02/16 09:21 Dose: 325 mg Hydralazine HCl (Apresoline) 100 mg PO Q6H [facility] Last Admin: 11/02/16 14:16 Dose: 100 mg Sodium Chloride (Sodium Chloride 0.45%) 1,000 mls @ 70 mls/hr IV .[id number] [facility] Last Admin: 11/02/16 09:19 Dose: 70 mls/hr Insulin Human Regular (Novolin R) 0 unit SC ACHS [facility] PRN Reason: Protocol Last Admin: 11/02/16 11:47 Dose: Not Given Losartan Potassium (Cozaar) 50 mg PO Q12H [facility] Last Admin: 11/02/16 09:21 Dose: 50 mg Morphine Sulfate (Morphine) 1 mg IVP Q6 PRN PRN Reason: Pain, moderate (4-7) Last Admin: 10/31/16 16:36 Dose: 1 mg Morphine Sulfate (Morphine) 2 mg IVP Q6 PRN PRN Reason: Pain, severe (8-10) Pantoprazole Sodium (Protonix Ec Tab) 40 mg PO DAILY [facility] Last Admin: 11/02/16 09:22 Dose: 40 mg Rosuvastatin Calcium (Crestor) 20 mg PO HS [facility] Last Admin: 11/01/16 22:09 Dose: 20 mg - Labs Labs: 11/02/16 07:28 11/02/16 07:28 PT 11.9 SECONDS (9.7-12.2) 10/31/16 13:13 INR 1.1 10/31/16 13:13 APTT 37 SECONDS (21-34) H 10/31/16 13:13 Attending/Attestation - Attestation I have personally seen and examined this patient.: Yes I have fully participated in the care of the patient.: Yes I have reviewed all pertinent clinical information, including history, physical exam and plan: Yes Notes (Text): 11/02/16 16:25 Hospitalist Progress Note Patient was see and examined at 2:15 PM 11/02/16 [id number] Very pleasant 81 year old female (PMHx PAD/PVD, CKD Stage III, DM 2, CAP with Stents, HTN, HLD, Anemia Secondary to CKD, Heart Valve Replacement, GI Bleed in September 2016) who was admitted on 10/31/16 for intractable right foot pain despite the use of Percocet at home. She was placed on low dose of Morphine Q6H PRN as needed and this has resolved her pain. She was evaluated by Vascular Surgeon Dr. Victor and NO surgical intervention at this time. However, patient was also noted to be have Acute on Chronic Renal Failure. Her baseline BUN/Cr is 10/ 1.4 with eGFR of 36 in 2016 and she was found to have a BUN/Cr of 35/2.2 with eGFR at 21 on presentation. Her Lasix was discontinued and she was given gentle hydration of NS @65 ml per hour however this had to be discontinued after roughly 500 ml as her blood pressure became elevated. However, Claim Auditor Dr. Green evaluated the patient on 11/01/16 and restarted the IVF NS at 70 ml/hour and the BUN/Cr improved, although not quite at baseline , on morning of 11/02/16. Her blood pressure medications were adjusted for the increased HTN. Please see individual Assessment and Plan below for further details. ROS: Her right foot pain is controlled on the Morphine and she has only asked for it once since admission Her last bowel movement was on 10/31/16 before she came to the ER despite being on Colace and being given Dulcolax on 11/01/16 NO burning/pain with urination NO Chest Pain/Palpitations NO SOB/Cough/Wheezing NO abdominal pain, NO n/v/c NO other complaints upon FULL ROS Exam: General: AAOx3, NAD, Exam performed with Son Emory [phone] present and he helped to translate [place] HEENT: NCA, Right Pupil is round and reactive to light (history of right eye blindness). Left Pupil is irregularly shaped and nonreactive to light (can only see shadows). NO cervical/supraclavicular/submandibular lymphadenopathy, NO pharyngeal erythema/exudate Cardio: NS1 and NS2, Systolic Ejection Murmur appreciated in all of the auscultatory roper Respiratory: Bibasilar Faint Inspiratory Rales GI: BSx4, Soft, NT, ND, NO HSM, NO guarding/rebound tenderness Ext: Pulses are strong and equal, NO edema, Warm, NO cyanosis/clubbing, Capillary Refill is 2 seconds, Right Medial Lateral Foot Ulcer at the base of the Toe #1 is 2 cm by 1.5 cm without surrounding signs of cellulitis (this has been present for the past month due podiatry boot placed at [facility] as per Son Emory) Assessment and Plan: 1). Right foot pain secondary to history PAD/PVD -Vascular consult, Dr. Victor help appreciated -No surgical intervention indicated at this time -Follow up Lower extremity artery duplex 2). Acute on CKD stage III -Nephrology consult, Dr. Green help appreciated -IVF NS @ 70 ml/hr has improved the Bun/Cr although not at baseline yet -Continue to Hold Lasix 3). Hx CAD s/p stent -Cardiology consult, Dr. Piña help appreciated -Crestor 20mg PO QHS -ASA 81mg PO 4). Hx DM 2 -RISS -Accucheck ACHS -HgA1C, 6.6 earlier this year and 6.4 on 10/31/16 5). Hx HTN -Improved on morning of 11/02/16 however still in the 160s Systolic -Hydralazine 100mg PO TID was increased to 4x/day on 11/02/16 -Losartan 50mg PO was increased to 50 mg PO 2x/day starting at 10 PM 11/01/16 -Norvasc 10 mg PO QHS was started on 11/01/16 10 PM -Holding Lasix due to ARF 6). HLD -Crestor 20mg PO QHS 7). History of anemia likely secondary to CKD -Monitor CBC -Iron was low in prior admission -Feosol 325mg BID 8). History of Heart valve replacement -Unspecified, confirm with cardiology 9). History of GI bleed -Colonoscopy from September 2016 showed diverticulosis -Upper EGD showed hiatal hernia -Planned outpatient capsule endoscopy with Dr. Mcguire -HOLD prophylactic anticoagulation 10). Prophylactic measures -Tylenol 650mg prn -Vitamin D 1000u daily -Colace 100mg po BID -SCD left LE (no chemical anticoagulation due to recent Hx of GI bleed) Once patient's blood pressure is better under control and her Renal Function is back to baseline, Medicine Team should discharge patient. This was explained to Son Emory [phone] , and he asked if the Medicine Team could give him a call and let him know if she is going to be discharged as he will be out of class by 2 PM on 11/03/16. Edison Villalba D.O.
[2016-11-02] MEDS ORDERED: Bisacodyl 5mg EC Tab PO ONE (14:11)
--- NOTE | 2016-11-02 15:52 | CP.PCM.PN ---
Subjective - Date & Time of Evaluation Date of Evaluation: 11/02/16 Time of Evaluation: 15:51 - Subjective Subjective: pt is seen and examined, follow up consult is dictated #[phone] renal function is improving, c/w iv hydration clonidine prn for sbp <170 Objective - Vital Signs/Intake and Output Vital Signs (last 24 hours): Temp Pulse Resp BP Pulse Ox 97.6 F 75 20 167/70 H 95 11/02/16 08:09 11/02/16 08:09 11/02/16 08:09 11/02/16 08:09 11/02/16 08:09 Intake and Output: 11/02/16 11/02/16 06:59 18:59 Intake Total 810 1700 Balance 810 1700 - Medications Medications: Current Medications Acetaminophen (Tylenol 325mg Tab) 650 mg PO Q6 PRN PRN Reason: Pain, Mild (1-3) Albuterol (Ventolin Hfa 90 Mcg/Actuation (8 G)) 1 puff INH RQ6 PRN PRN Reason: Shortness of Breath Amlodipine Besylate (Norvasc) 10 mg PO DAILY [facility] Last Admin: 11/02/16 09:21 Dose: 10 mg Aspirin (Aspirin Chewable) 81 mg PO DAILY [facility] Last Admin: 11/02/16 09:21 Dose: 81 mg Docusate Sodium (Colace) 100 mg PO BID [facility] Last Admin: 11/02/16 09:21 Dose: 100 mg Ergocalciferol (Drisdol 50,000 Intl Units Cap) 1 cap PO QWK [facility] Last Admin: 11/01/16 09:16 Dose: 1 cap Ferrous Sulfate (Feosol) 325 mg PO BID [facility] Last Admin: 11/02/16 09:21 Dose: 325 mg Hydralazine HCl (Apresoline) 100 mg PO Q6H [facility] Last Admin: 11/02/16 14:16 Dose: 100 mg Sodium Chloride (Sodium Chloride 0.45%) 1,000 mls @ 70 mls/hr IV .[id number] [facility] Last Admin: 11/02/16 09:19 Dose: 70 mls/hr Insulin Human Regular (Novolin R) 0 unit SC ACHS [facility] PRN Reason: Protocol Last Admin: 11/02/16 11:47 Dose: Not Given Losartan Potassium (Cozaar) 50 mg PO Q12H [facility] Last Admin: 11/02/16 09:21 Dose: 50 mg Morphine Sulfate (Morphine) 1 mg IVP Q6 PRN PRN Reason: Pain, moderate (4-7) Last Admin: 10/31/16 16:36 Dose: 1 mg Morphine Sulfate (Morphine) 2 mg IVP Q6 PRN PRN Reason: Pain, severe (8-10) Pantoprazole Sodium (Protonix Ec Tab) 40 mg PO DAILY [facility] Last Admin: 11/02/16 09:22 Dose: 40 mg Rosuvastatin Calcium (Crestor) 20 mg PO HS [facility] Last Admin: 11/01/16 22:09 Dose: 20 mg - Labs Labs: 11/02/16 07:28 11/02/16 07:28 PT 11.9 SECONDS (9.7-12.2) 10/31/16 13:13 INR 1.1 10/31/16 13:13 APTT 37 SECONDS (21-34) H 10/31/16 13:13
--- NOTE | 2016-11-02 20:52 | CP.PCM.PN ---
Subjective - Date & Time of Evaluation Date of Evaluation: 11/02/16 Time of Evaluation: 09:15 - Subjective Subjective: Patient seen and evaluated More comfortable today Review of Systems - Constitutional Constitutional: As Per HPI. absent: Chills, Fever, Lethargy - EENT Eyes: As Per HPI. absent: Blurred Vision, Change in Vision Ears: As Per HPI. absent: Disequilibrium, Dizziness Nose/Mouth/Throat: As Per HPI. absent: Nasal Trauma, Nose Pain - Breasts Breasts: As Per HPI - Cardiovascular Cardiovascular: As Per HPI. absent: Chest Pain, Edema, Leg Edema, Syncope - Respiratory Respiratory: As Per HPI. absent: Cough, Dyspnea - Gastrointestinal Gastrointestinal: As Per HPI. absent: Abdominal Pain, Constipation, Diarrhea, Nausea, Vomiting - Genitourinary Genitourinary: As Per HPI. absent: Flank Pain, Hematuria, Freq UTI - Musculoskeletal Musculoskeletal: As Per HPI Additional comments: Right foot pain - Integumentary Integumentary: As Per HPI, Skin Ulcer (medial right foot) - Neurological Neurological: As Per HPI. absent: Dizziness, Numbness - Psychiatric Psychiatric: As Per HPI. absent: Anxiety, Confusion, Depression - Endocrine Endocrine: As Per HPI - Hematologic/Lymphatic Hematologic: As Per HPI Physical Exam - Constitutional Appears: Non-toxic, No Acute Distress - Head Exam Head Exam: ATRAUMATIC, NORMAL INSPECTION - Eye Exam Eye Exam: Normal appearance - ENT Exam ENT Exam: Mucous Membranes Moist - Neck Exam Neck exam: Positive for: Normal Inspection - Respiratory Exam Respiratory Exam: Clear to Auscultation Bilateral, NORMAL BREATHING PATTERN. absent: Respiratory Distress - Cardiovascular Exam Cardiovascular Exam: REGULAR RHYTHM, +S1, +S2 - GI/Abdominal Exam GI & Abdominal Exam: Normal Bowel Sounds, Soft. absent: Tenderness - Extremities Exam Extremities exam: Positive for: normal capillary refill, tenderness (Right foot plantar surface tenderness near the ball of the foot), pedal pulses present. Negative for: joint swelling, pedal edema Additional comments: Old skin ulcer located at the medial aspect of right foot with dark discoloration. No erythema, no cyanosis, no significant temperature different between 2 lower extremities. - Back Exam Back exam: NORMAL INSPECTION - Neurological Exam Neurological exam: Alert, Oriented x3 - Psychiatric Exam Psychiatric exam: Normal Affect, Normal Mood - Skin Skin Exam: Dry, Warm Objective - Vital Signs/Intake and Output Vital Signs (last 24 hours): Temp Pulse Resp BP Pulse Ox 98.5 F 74 20 156/76 H 96 11/02/16 16:00 11/02/16 16:00 11/02/16 16:00 11/02/16 16:00 11/02/16 16:00 Intake and Output: 11/02/16 11/03/16 18:59 06:59 Intake Total 1700 Balance 1700 - Medications Medications: Current Medications Acetaminophen (Tylenol 325mg Tab) 650 mg PO Q6 PRN PRN Reason: Pain, Mild (1-3) Albuterol (Ventolin Hfa 90 Mcg/Actuation (8 G)) 1 puff INH RQ6 PRN PRN Reason: Shortness of Breath Amlodipine Besylate (Norvasc) 10 mg PO DAILY [facility] Last Admin: 11/02/16 09:21 Dose: 10 mg Aspirin (Aspirin Chewable) 81 mg PO DAILY [facility] Last Admin: 11/02/16 09:21 Dose: 81 mg Docusate Sodium (Colace) 100 mg PO BID [facility] Last Admin: 11/02/16 18:22 Dose: 100 mg Ergocalciferol (Drisdol 50,000 Intl Units Cap) 1 cap PO QWK [facility] Last Admin: 11/01/16 09:16 Dose: 1 cap Ferrous Sulfate (Feosol) 325 mg PO BID [facility] Last Admin: 11/02/16 18:22 Dose: 325 mg Hydralazine HCl (Apresoline) 100 mg PO Q6H [facility] Last Admin: 11/02/16 14:16 Dose: 100 mg Sodium Chloride (Sodium Chloride 0.45%) 1,000 mls @ 70 mls/hr IV .[id number] [facility] Last Admin: 11/02/16 09:19 Dose: 70 mls/hr Insulin Human Regular (Novolin R) 0 unit SC ACHS [facility] PRN Reason: Protocol Last Admin: 11/02/16 17:46 Dose: Not Given Losartan Potassium (Cozaar) 50 mg PO Q12H [facility] Last Admin: 11/02/16 09:21 Dose: 50 mg Morphine Sulfate (Morphine) 1 mg IVP Q6 PRN PRN Reason: Pain, moderate (4-7) Last Admin: 10/31/16 16:36 Dose: 1 mg Morphine Sulfate (Morphine) 2 mg IVP Q6 PRN PRN Reason: Pain, severe (8-10) Pantoprazole Sodium (Protonix Ec Tab) 40 mg PO DAILY [facility] Last Admin: 11/02/16 09:22 Dose: 40 mg Rosuvastatin Calcium (Crestor) 20 mg PO HS [facility] Last Admin: 11/01/16 22:09 Dose: 20 mg - Labs Labs: 11/02/16 07:28 11/02/16 07:28 PT 11.9 SECONDS (9.7-12.2) 10/31/16 13:13 INR 1.1 10/31/16 13:13 APTT 37 SECONDS (21-34) H 10/31/16 13:13 Assessment and Plan - Assessment and Plan (Free Text) Assessment: Right foot pain secondary to history PAD/PVD -Vascular consult, Dr. Victor help appreciated -No surgical intervention indicated at this time -Follow up Lower extremity artery duplex Acute on CKD stage III -Nephrology consult, Dr. Green help appreciated -IVF NS @60ml/hr -Hold Lasix Hx CAD s/p stent -Crestor 20mg PO QHS -ASA 81mg PO Hx DM 2 -RISS -Accucheck ACHS -F/U A1C, 6.6 earlier this year Hx HTN -Hydralazine 100mg PO TID -Losartan 50mg PO -Hold Lasix due to ARF HLD -Crestor 20mg PO QHS History of anemia likely secondary to CKD -Monitor CBC -Iron was low in prior admission -Start Feosol 325mg BID History of Heart valve replacement -Unspecified, confirm with cardiology History of GI bleed -Colonoscopy from September showed diverticulitis -Upper EGD showed hiatal hernia -Planned outpatient capsule endoscopy with Dr. Mcguire Prophylactic measures -Tylenol 650mg prn -Vitamin D 1000u daily -Colace 100mg po BID -SCD left LE (no chemical anticoag due to Hx of GI bleed)
[2016-11-03 08:07] LABS: BASO # 0.1 K/uL (0.0-0.2); BASO % 0.7 % (0.0-2.0); EOS # 0.8 K/uL (0.0-0.7); EOS % 8.9 % (0.0-4.0); HEMATOCRIT 33.6 % (34.0-47.0); LYMPH % 11.5 % (20.0-40.0); MEAN CELL VOLUME 90.4 fL (81.0-99.0); MEAN CORPUSCULAR HEMOGLOBIN 29.8 pg (27.0-31.0); MEAN CORPUSCULAR HGB CONC 32.9 g/dL (33.0-37.0); MEAN PLATELET VOLUME 9.2 fL (7.2-11.7); MONO # 0.6 K/uL (0.0-0.8); MONO % 6.8 % (0.0-10.0); NRBC % 0.1 % (0.0-2.0); RED CELL DISTRIBUTION WIDTH 14.3 % (11.5-14.5); WHITE BLOOD COUNT 8.8 K/uL (4.8-10.8)
--- NOTE | 2016-11-03 08:08 | PN ---
DATE:11/02/2016 FOLLOWUP RENAL CONSULTATION Patient is located in room 356, bed 8. REQUESTED BY: Dr. Edison Villalba. REASON FOR FOLLOWUP: Acute renal failure, chronic kidney disease. SUBJECTIVE: Mrs. Rolle is a 81-year-old elderly female with a history of hypertension, history of coronary artery disease status post valvular surgery, questionable TAVR, chronic kidney disease and history of rectal bleeding x2, was admitted with right leg pain. Patient is not in acute distress. Denies any chest pain, palpitation. Denies any fever, cough. Patient claims her pain is much better. No chest pain, no palpitation, no fever, no cough. No abdominal pain, no nausea, vomiting, diarrhea. PHYSICAL EXAMINATION VITAL SIGNS: Blood pressure 156/76, pulse 74, respiration 20, temperature 98.5. Saturation 96%. GENERAL: Mrs. Rolle is a 81-year-old elderly female, moderately built, moderately nourished, not in acute distress. HEENT: Pupils normal reactive to light and accommodation. Conjunctivae pink. Sclerae anicteric. Tongue is moist. Trachea is midline. LUNGS: Symmetric on both side. Bilateral breath sounds present. Clear on auscultation. CVS: [place] at the fifth intercostal space, midclavicular line. S1 and S2 audible. No murmur. No gallop. ABDOMEN: Normal in appearance. Soft and tympanic. No guarding. No rigidity. No hepatosplenomegaly. CENTRAL NERVOUS SYSTEM: The patient is alert, awake, oriented x2-3. Sensory and motor system is grossly within normal limits. EXTREMITIES: No cyanosis. No clubbing. No edema. Dorsalis pedis pulses are feeble in both sides, but legs are warm to touch. CURRENT MEDICATIONS: As follows. Hydralazine 100 mg p.o. q. 6 hours, aspirin 81 mg daily, Colace 100 mg b.i.d., losartan 50 mg p.o. q. 12 hours, Crestor 20 mg p.o. at bedtime, ergocalciferol 50,000 units p.o. q. weekly and ferrous sulfate 325 mg b.i.d., morphine and amlodipine 10 mg daily, Protonix 40 mg daily, normal saline IV fluid at 70 mL per hour, acetaminophen 325 mg two tablets p.o. q. 6 hours, and albuterol inhaler. LABORATORY DATA: Include as follows as of 11/02/2016. WBC 8.5, hemoglobin 10.5, hematocrit 32, and platelets 321. Sodium 135, potassium 3.8, chloride 102, CO2 of 21, BUN 28, creatinine 1.9, glucose 98, calcium 9.1. Total bili 0.3, AST 24, ALT 26, alkaline phosphatase 65, total protein is 6.9, and albumin is 3.2. ASSESSMENT AND PLAN: In summary, Mrs. Rolle is a 81-year-old elderly female with hypertension, coronary artery disease, chronic kidney disease, history of a rectal bleed, hyperlipidemia, was admitted with right leg pain and increased BUN and creatinine. 1. Renal failure. Acute on chronic kidney disease, most likely secondary to intravascular volume depletion. We will continue gentle IV hydration, half normal saline at 70 mL per hour. 2. Uncontrolled hypertension. 3. Chronic kidney disease, mostly likely secondary to hypertensive nephrosclerosis. Continue hydralazine. Continue losartan, continue amlodipine. Try to keep the blood pressure around 130/80, repeat BMP in the a.m. We will follow with you. Thank you for allowing me to participate in your patient's care. Roseann Green MD MTDClara
[2016-11-03] MEDS: (Novolin R) Insulin Human Regular 100 units/ml vial SC SCH ×3 (08:14→17:04)
[2016-11-03 08:33] LABS: POTASSIUM 4.2 mmol/L (3.6-5.2)
[2016-11-03 08:34] LABS: BILIRUBIN,TOTAL 0.4 mg/dL (0.2-1.3)
[2016-11-03 08:35] LABS: ALB/GLOB RATIO 0.8 (1.0-2.1); CALCIUM 8.8 mg/dl (8.6-10.4); TOTAL PROTEIN 6.7 g/dL (6.3-8.3)
[2016-11-03] MEDS: Pantoprazole 40 mg EC Tab PO SCH (09:27)
--- NOTE | 2016-11-03 11:16 | CP.PCM.PN ---
Subjective - Date & Time of Evaluation Date of Evaluation: 11/03/16 Time of Evaluation: 11:15 - Subjective Subjective: pt is seen and examined, follow up consult is dictated #[id number] Objective - Vital Signs/Intake and Output Vital Signs (last 24 hours): Temp Pulse Resp BP Pulse Ox 98.4 F 75 20 166/70 H 97 11/03/16 07:43 11/03/16 07:43 11/03/16 07:43 11/03/16 07:43 11/03/16 07:43 Intake and Output: 11/03/16 11/03/16 06:59 18:59 Intake Total 880 Balance 880 - Medications Medications: Current Medications Acetaminophen (Tylenol 325mg Tab) 650 mg PO Q6 PRN PRN Reason: Pain, Mild (1-3) Albuterol (Ventolin Hfa 90 Mcg/Actuation (8 G)) 1 puff INH RQ6 PRN PRN Reason: Shortness of Breath Amlodipine Besylate (Norvasc) 10 mg PO DAILY [facility] Last Admin: 11/03/16 09:27 Dose: 10 mg Aspirin (Aspirin Chewable) 81 mg PO DAILY [facility] Last Admin: 11/03/16 09:26 Dose: 81 mg Docusate Sodium (Colace) 100 mg PO BID [facility] Last Admin: 11/03/16 09:27 Dose: 100 mg Ergocalciferol (Drisdol 50,000 Intl Units Cap) 1 cap PO QWK [facility] Last Admin: 11/01/16 09:16 Dose: 1 cap Ferrous Sulfate (Feosol) 325 mg PO BID [facility] Last Admin: 11/03/16 09:27 Dose: 325 mg Hydralazine HCl (Apresoline) 100 mg PO Q6H [facility] Last Admin: 11/03/16 09:26 Dose: 100 mg Sodium Chloride (Sodium Chloride 0.45%) 1,000 mls @ 70 mls/hr IV .[id number] [facility] Last Admin: 11/02/16 21:32 Dose: 70 mls/hr Insulin Human Regular (Novolin R) 0 unit SC ACHS [facility] PRN Reason: Protocol Last Admin: 11/03/16 08:14 Dose: Not Given Losartan Potassium (Cozaar) 50 mg PO Q12H [facility] Last Admin: 11/03/16 09:27 Dose: 50 mg Morphine Sulfate (Morphine) 1 mg IVP Q6 PRN PRN Reason: Pain, moderate (4-7) Last Admin: 10/31/16 16:36 Dose: 1 mg Morphine Sulfate (Morphine) 2 mg IVP Q6 PRN PRN Reason: Pain, severe (8-10) Pantoprazole Sodium (Protonix Ec Tab) 40 mg PO DAILY [facility] Last Admin: 11/03/16 09:27 Dose: 40 mg Rosuvastatin Calcium (Crestor) 10 mg PO HS [facility] - Labs Labs: 11/03/16 07:48 11/03/16 07:48 PT 11.9 SECONDS (9.7-12.2) 10/31/16 13:13 INR 1.1 10/31/16 13:13 APTT 37 SECONDS (21-34) H 10/31/16 13:13
--- NOTE | 2016-11-03 14:49 | CP.PCM.DIS ---
<Ayala Lawrence V - Last Filed: 11/03/16 20:58> Provider - Provider Date of Admission: 10/31/16 14:25 Attending physician: Ayala Lawrence, [facility] Course - Lab Results Lab Results: Most Recent Lab Values WBC 8.8 K/uL (4.8-10.8) 11/03/16 07:48 RBC 3.72 Mil/uL (3.80-5.20) L 11/03/16 07:48 Hgb 11.1 g/dL (11.0-16.0) 11/03/16 07:48 Hct 33.6 % (34.0-47.0) L 11/03/16 07:48 MCV 90.4 fL (81.0-99.0) 11/03/16 07:48 MCH 29.8 pg (27.0-31.0) 11/03/16 07:48 MCHC 32.9 g/dL (33.0-37.0) L 11/03/16 07:48 RDW 14.3 % (11.5-14.5) 11/03/16 07:48 Plt Count 289 K/uL (130-400) 11/03/16 07:48 MPV 9.2 fL (7.2-11.7) 11/03/16 07:48 Neut % (Auto) 72.1 % (50.0-75.0) 11/03/16 07:48 Lymph % (Auto) 11.5 % (20.0-40.0) L 11/03/16 07:48 [place] % (Auto) 6.8 % (0.0-10.0) 11/03/16 07:48 Eos % (Auto) 8.9 % (0.0-4.0) H 11/03/16 07:48 Baso % (Auto) 0.7 % (0.0-2.0) 11/03/16 07:48 Neut # 6.3 K/uL (1.8-7.0) 11/03/16 07:48 Lymph # 1.0 K/uL (1.0-4.3) 11/03/16 07:48 [place] # 0.6 K/uL (0.0-0.8) 11/03/16 07:48 Eos # 0.8 K/uL (0.0-0.7) H 11/03/16 07:48 Baso # 0.1 K/uL (0.0-0.2) 11/03/16 07:48 PT 11.9 SECONDS (9.7-12.2) 10/31/16 13:13 INR 1.1 10/31/16 13:13 APTT 37 SECONDS (21-34) H 10/31/16 13:13 Sodium 133 mmol/L (132-148) 11/03/16 07:48 Potassium 4.2 mmol/L (3.6-5.2) 11/03/16 07:48 Chloride 103 mmol/L (98-107) 11/03/16 07:48 Carbon Dioxide 18 mmol/L (22-30) L 11/03/16 07:48 Anion Gap 16 (10-20) 11/03/16 07:48 BUN 21 mg/dL (7-17) H 11/03/16 07:48 Creatinine 1.7 MG/DL (0.7-1.2) H 11/03/16 07:48 Est GFR ( Amer) 35 11/03/16 07:48 Est GFR (Non-Af Amer) 29 11/03/16 07:48 POC Glucose (mg/dL) 89 mg/dL (65-110) 11/03/16 16:13 Random Glucose 101 mg/dL (65-105) 11/03/16 07:48 Hemoglobin A1c 6.4 % (4.2-6.5) 10/31/16 13:13 Calcium 8.8 mg/dl (8.6-10.4) 11/03/16 07:48 Phosphorus 3.7 mg/dL (2.5-4.5) 10/31/16 13:13 Magnesium 2.0 mg/dL (1.6-2.3) 10/31/16 13:13 Total Bilirubin 0.4 mg/dL (0.2-1.3) 11/03/16 07:48 AST 21 U/L (14-36) 11/03/16 07:48 ALT 16 U/L (9-52) 11/03/16 07:48 Alkaline Phosphatase 65 U/L (38-126) 11/03/16 07:48 Total Protein 6.7 g/dL (6.3-8.3) 11/03/16 07:48 Albumin 3.1 g/dL (3.5-5.0) L 11/03/16 07:48 Globulin 3.7 gm/dL (2.2-3.9) 11/03/16 07:48 Albumin/Globulin Ratio 0.8 (1.0-2.1) L 11/03/16 07:48 PTH Intact Whole Molec 64 pg/mL (14-64) 11/02/16 07:28 Urine Color Yellow (YELLOW) 10/31/16 13:25 Urine Clarity Clear (Clear) 10/31/16 13:25 Urine pH 6.0 (5.0-8.0) 10/31/16 13:25 Ur Specific [place] 1.008 (1.003-1.030) 10/31/16 13:25 Urine Protein Negative mg/dL (NEGATIVE) 10/31/16 13:25 Urine Glucose (UA) Normal mg/dL (Normal) 10/31/16 13:25 Urine Ketones Negative mg/dL (NEGATIVE) 10/31/16 13:25 Urine Blood Negative (NEGATIVE) 10/31/16 13:25 Urine Nitrate Negative (NEGATIVE) 10/31/16 13:25 Urine Bilirubin Negative (NEGATIVE) 10/31/16 13:25 Urine Urobilinogen Normal mg/dL (0.2-1.0) 10/31/16 13:25 Ur Leukocyte Esterase 2+ Jerson/uL (Negative) H 10/31/16 13:25 Urine WBC (Auto) 23 /hpf (0-5) H 10/31/16 13:25 Urine RBC (Auto) 1 /hpf (0-3) 10/31/16 13:25 Urine Bacteria Rare (<OCC) 10/31/16 13:25 Urine Yeast (Budding) Few /hpf (NEGATIVE) H 10/31/16 13:25 Discharge Plan - Discharge Medications Prescriptions: amLODIPine [Norvasc] 10 mg PO DAILY #30 tab hydrALAZINE [Apresoline] 100 mg PO Q6H #120 tab Losartan [Cozaar] 50 mg PO Q12H #60 tab Morphine [Morphine Immediate Release Tab] 4 mg PO Q12H PRN #10 tab PRN Reason: Pain, Severe (8-10) - Follow Up Plan Condition: STABLE Disposition: HOME/ ROUTINE Instructions: Morphine, Rapid Release (By mouth), Hydralazine (By mouth), Amlodipine (By mouth), Losartan (By mouth), Peripheral Vascular Disease (DC), Peripheral Artery Disease (DC) Referrals: Ladan Nicole MD [Staff Provider] - Attending/Attestation - Attestation I have personally seen and examined this patient.: Yes I have fully participated in the care of the patient.: Yes I have reviewed all pertinent clinical information, including history, physical exam and plan: Yes Notes (Text): Patient seen, examined, and case discussed with day-time resident. Patient seen during morning rounds with family member at bedside. Patient reports she has a strong bowel movement. Blood pressure improved in the afternoon: SBP:120s. Patient medically stable for discharge. Discussed with patient's son Emory, regarding medication changes including: Stop Losartan 100mg PO daily-->changed to Losartan 50mg PO BID Stop Hydralazine 50mg PO tid-->changed to Hydralazine 100mg PO Q 6 hours Stop Norvasc 5mg PO daily-->changed to Norvasc 10mg PO daily Patient advised to stop Percocet if any is left over. Patient discharged on 5 day supply of Morphine 15mg PO PRN severe pain (10 pills ), and advised to follow-up with PMD if needs additional. [facility]cod[facility]mg filled on 08/30/16 for only 15 day supply (60 tabs) . Patient advised to followup with PMD, cardiology, nephrology, and vascular surgery upon discharge from the hospital. Discussed discharge order and medication reconcilation with day-time resident. Assessment/Plan 1). Right foot pain secondary to history PAD/PVD -Vascular consult, Dr. Victor help appreciated -No surgical intervention indicated at this time 2). Acute on CKD stage III -Nephrology consult, Dr. Green help appreciated -IVF NS @ 70 ml/hr has improved the Bun/Cr -f/u nephrology upon discharge 3). Hx CAD s/p stent -Cardiology consult, Dr. Piña help appreciated -Crestor 20mg PO QHS -ASA 81mg PO daily 4). Hx DM 2 -RISS -Accucheck ACHS -HgA1C, 6.6 earlier this year and 6.4 on 10/31/16 5). Hx HTN -Improved day of discharge -Hydralazine 100mg PO 4x/day -Losartan 50mg PO 2x/day (home dose: 100mg PO 1x/day) -Norvasc 10 mg PO QHS -Medications changed upon discharge and discussed with patient's son at bedside 6). HLD -Crestor 20mg PO QHS 7). History of anemia likely secondary to CKD -Monitor CBC -Iron was low in prior admission -Feosol 325mg BID 8). History of Heart valve replacement -Unspecified, confirm with cardiology 9). History of GI bleed -Colonoscopy from September 2016 showed diverticulosis -Upper EGD showed hiatal hernia -Planned outpatient capsule endoscopy with Dr. Mcguire -HOLD prophylactic anticoagulation 10). Prophylactic measures -Tylenol 650mg prn -Vitamin D 1000u daily -Colace 100mg po BID -SCD left LE (no chemical anticoagulation due to recent Hx of GI bleed) <Ирина Rossi - Last Filed: 11/03/16 22:17> Provider - Provider Date of Admission: 10/31/16 14:25 Attending physician: Ayala Lawrence DO Time Spent in preparation of Discharge (in minutes): 45 Hospital Course - Lab Results Lab Results: Most Recent Lab Values WBC 8.8 K/uL (4.8-10.8) 11/03/16 07:48 RBC 3.72 Mil/uL (3.80-5.20) L 11/03/16 07:48 Hgb 11.1 g/dL (11.0-16.0) 11/03/16 07:48 Hct 33.6 % (34.0-47.0) L 11/03/16 07:48 MCV 90.4 fL (81.0-99.0) 11/03/16 07:48 MCH 29.8 pg (27.0-31.0) 11/03/16 07:48 MCHC 32.9 g/dL (33.0-37.0) L 11/03/16 07:48 RDW 14.3 % (11.5-14.5) 11/03/16 07:48 Plt Count 289 K/uL (130-400) 11/03/16 07:48 MPV 9.2 fL (7.2-11.7) 11/03/16 07:48 Neut % (Auto) 72.1 % (50.0-75.0) 11/03/16 07:48 Lymph % (Auto) 11.5 % (20.0-40.0) L 11/03/16 07:48 [place] % (Auto) 6.8 % (0.0-10.0) 11/03/16 07:48 Eos % (Auto) 8.9 % (0.0-4.0) H 11/03/16 07:48 Baso % (Auto) 0.7 % (0.0-2.0) 11/03/16 07:48 Neut # 6.3 K/uL (1.8-7.0) 11/03/16 07:48 Lymph # 1.0 K/uL (1.0-4.3) 11/03/16 07:48 [place] # 0.6 K/uL (0.0-0.8) 11/03/16 07:48 Eos # 0.8 K/uL (0.0-0.7) H 11/03/16 07:48 Baso # 0.1 K/uL (0.0-0.2) 11/03/16 07:48 PT 11.9 SECONDS (9.7-12.2) 10/31/16 13:13 INR 1.1 10/31/16 13:13 APTT 37 SECONDS (21-34) H 10/31/16 13:13 Sodium 133 mmol/L (132-148) 11/03/16 07:48 Potassium 4.2 mmol/L (3.6-5.2) 11/03/16 07:48 Chloride 103 mmol/L (98-107) 11/03/16 07:48 Carbon Dioxide 18 mmol/L (22-30) L 11/03/16 07:48 Anion Gap 16 (10-20) 11/03/16 07:48 BUN 21 mg/dL (7-17) H 11/03/16 07:48 Creatinine 1.7 MG/DL (0.7-1.2) H 11/03/16 07:48 Est GFR ( Amer) 35 11/03/16 07:48 Est GFR (Non-Af Amer) 29 11/03/16 07:48 POC Glucose (mg/dL) 121 mg/dL (65-110) H 11/03/16 10:56 Random Glucose 101 mg/dL (65-105) 11/03/16 07:48 Hemoglobin A1c 6.4 % (4.2-6.5) 10/31/16 13:13 Calcium 8.8 mg/dl (8.6-10.4) 11/03/16 07:48 Phosphorus 3.7 mg/dL (2.5-4.5) 10/31/16 13:13 Magnesium 2.0 mg/dL (1.6-2.3) 10/31/16 13:13 Total Bilirubin 0.4 mg/dL (0.2-1.3) 11/03/16 07:48 AST 21 U/L (14-36) 11/03/16 07:48 ALT 16 U/L (9-52) 11/03/16 07:48 Alkaline Phosphatase 65 U/L (38-126) 11/03/16 07:48 Total Protein 6.7 g/dL (6.3-8.3) 11/03/16 07:48 Albumin 3.1 g/dL (3.5-5.0) L 11/03/16 07:48 Globulin 3.7 gm/dL (2.2-3.9) 11/03/16 07:48 Albumin/Globulin Ratio 0.8 (1.0-2.1) L 11/03/16 07:48 Urine Color Yellow (YELLOW) 10/31/16 13:25 Urine Clarity Clear (Clear) 10/31/16 13:25 Urine pH 6.0 (5.0-8.0) 10/31/16 13:25 Ur Specific [place] 1.008 (1.003-1.030) 10/31/16 13:25 Urine Protein Negative mg/dL (NEGATIVE) 10/31/16 13:25 Urine Glucose (UA) Normal mg/dL (Normal) 10/31/16 13:25 Urine Ketones Negative mg/dL (NEGATIVE) 10/31/16 13:25 Urine Blood Negative (NEGATIVE) 10/31/16 13:25 Urine Nitrate Negative (NEGATIVE) 10/31/16 13:25 Urine Bilirubin Negative (NEGATIVE) 10/31/16 13:25 Urine Urobilinogen Normal mg/dL (0.2-1.0) 10/31/16 13:25 Ur Leukocyte Esterase 2+ Jerson/uL (Negative) H 10/31/16 13:25 Urine WBC (Auto) 23 /hpf (0-5) H 10/31/16 13:25 Urine RBC (Auto) 1 /hpf (0-3) 10/31/16 13:25 Urine Bacteria Rare (<OCC) 10/31/16 13:25 Urine Yeast (Budding) Few /hpf (NEGATIVE) H 10/31/16 13:25 - Hospital Course Hospital Course: HPI: 81 year old female with past medical history of PVD, DM, HTN, hyperlipidemia, CAD s/p stent, anemia, CKD, and gastritis presents to the ED complaining of right foot pain. Patient's son at bedside provided [place] translation. Patient started having right foot pain intermittently for the past 1 year. Patient was hospitalized this July for the similar issue. The pain became worse 2 days ago. The pain is located at plantar surface of her right foot. She describes the pain as sharp in quality, non radiating, rates 10/10 at the worst. Patient tried taking Percocet on the first day which provided some pain relief, but it did not help on the second day. Patient uses a walker to ambulate at baseline. She denies having any trauma to the foot. Patient was prescribed a specialized boot to help her walk, but she is complaining it is causing too much friction on the side of her foot. She denies headache, fever, chills, shortness of breath, chest pain, abdominal, nausea, vomiting, or diarrhea. Hospital Course: Patient is a 81 year old female with past medical history of PVD, DM, HTN, hyperlipidemia, CAD s/p stent, anemia, CKD, and gastritis, who is admitted with consideration for right foot pain. Surgical consult was to Dr. Victor as patient has history of PVD, no surgical intervention was recommended at the time. Patient was then medically managed for pain as well as for other PMH. Cardiology consult was placed to Dr. Piña was for cardiac management as patient has a Hx of CAD s/p stent. Cardiology recommended conservative medical management. Patient remained stable during hospital course. Patient was then discharged upon clearance by medical team. This is a brief summary of events. For complete course please refer to complete medical record. Discharge Exam - Head Exam Head Exam: NORMOCEPHALIC - Eye Exam Eye Exam: EOMI, Normal appearance - ENT Exam ENT Exam: Mucous Membranes Moist - Respiratory Exam Respiratory Exam: NORMAL BREATHING PATTERN. absent: Accessory Muscle Use, Wheezes, Respiratory Distress - Cardiovascular Exam Cardiovascular Exam: REGULAR RHYTHM, +S1, +S2. absent: Bradycardia, Tachycardia - GI/Abdominal Exam GI & Abdominal Exam: Normal Bowel Sounds, Soft. absent: Tenderness - Extremities Exam Extremities exam: normal capillary refill, normal inspection, pedal pulses present - Neurological Exam Neurological exam: Alert, Oriented x3 - Psychiatric Exam Psychiatric exam: Normal Affect, Normal Mood - Skin Skin Exam: Dry, Intact, Normal Color, Warm
[2016-11-03 16:12] VITALS: BP 147/76; PULSE 75; TEMP 98.3; O2SAT 96
--- NOTE | 2016-11-04 06:47 | CON ---
DATE: 11/03/2016 FOLLOWUP RENAL CONSULTATION LOCATION: The patient is located in room 356, bed 8. REQUESTED BY: Edison Villalba DO REASON FOR FOLLOWUP: Acute renal failure and chronic kidney disease, and for further evaluation HISTORY OF PRESENT ILLNESS: Ms. Rolle is 81 years old elderly female with past medical history significant for hypertension, hyperlipidemia, chronic kidney disease status post valvular surgery with history of rectal bleed x2, was admitted with pain in right foot. The patient was also found to have increased BUN and creatinine and started on IV hydration. The patient is feeling much better, less pain in the leg and denies any headache or dizziness. Denies any chest pain, palpitation. Denies any fever or cough. No abdominal pain. No nausea, vomiting, or diarrhea. PHYSICAL EXAMINATION: GENERAL: Ms. Rolle is 81 years old elderly female, moderately built, moderately nourished, not in acute distress. VITAL SIGNS: Blood pressure 147/76, pulse 75, respirations 20, temperature 98.3, saturations 96%. Height 5 feet, and weight is 145 pounds. HEENT: Pupils normal, reactive to light and accommodation. Conjunctivae pink. Sclerae anicteric. Tongue is moist. Trachea is midline. LUNGS: Symmetric on both sides. Bilateral breath sounds present. Clear on auscultation. CARDIOVASCULAR: [place] at the fifth intercostal space, midclavicular line, S1 and S2 audible. No murmur or gallop. ABDOMEN: Normal in appearance. Soft and tympanic. No guarding. No rigidity. No hepatosplenomegaly. CENTRAL NERVOUS SYSTEM: The patient is alert, awake, and oriented x3. Nonfocal examination. Cranial nerves II through XII grossly intact. Sensory and motor system is within normal limits. EXTREMITIES: No cyanosis. No clubbing. No edema. Dorsalis pedis pulses are feeble in both sides. CURRENT MEDICATIONS: Include as follows: Colace 100 mg p.o. b.i.d., vitamin D 1000 units p.o. daily, aspirin 81 mg daily, Crestor 20 mg at bedtime, hydralazine 100 mg p.o. q. 6 hours, Norvasc 10 mg daily, Protonix 40 mg p.o. daily, morphine 4 mg p.r.n. Cozaar 50 mg p.o. q. 12 hours and Feosol 325 mg p.o. b.i.d., Ventolin inhaler 1 puff q. 6 hours p.r.n. LABORATORY DATA: Include as follows: As of 11/03/2016, WBC 8.8, hemoglobin 11.1, hematocrit is 33.6, and platelets 289. Sodium 133, potassium 4.2, chloride 103, CO2 of 18, BUN is 21, creatinine 1.7. Glucose of 101. Calcium 8.8, total bilirubin 0.4. AST 21, ALT 16, alkaline phosphatase 65, total protein 6.7, albumin is 3.1, Accu-Cheks 121 and 89. ASSESSMENT AND PLAN: In summary, Ms. Rolle is 81 years old elderly female with a history of hypertension, hyperlipidemia, chronic kidney disease, and history of rectal bleed, was admitted with right leg pain and increased BUN and creatinine. 1. Acute renal failure on chronic kidney disease secondary to intravascular volume depletion. Continue gentle IV hydration and increase p.o. fluid intake. 2. Chronic kidney disease, mostly likely secondary to hypertensive nephrosclerosis. 3. Uncontrolled hypertension. Blood pressure is much better now and continue her current medications; hydralazine 100 mg p.o. q. 6 hours, amlodipine 10 mg and losartan. Thank you for allowing me to participate in your patient's care. Continue to monitor BMP as an outpatient. Roseann Green MD
--- NOTE | 2016-11-04 10:40 | VASCLAB ---
PROCEDURE: Lower Extremity Venous Duplex Exam. HISTORY: rt foot pain decrease pulse, h.o PVD PRIORS: None. TECHNIQUE: Bilateral common femoral, femoral, popliteal and posterior tibial, peroneal and great saphenous veins were evaluated. Flow was assessed with color Doppler, compressibility, assessment of phasic flow and augmentation response. Report prepared by Rocky Dodson, BS, RVT FINDINGS: RIGHT: 1. Common Femoral Vein: 1.1. Compressibility - Fully compressible: Thrombus - None : Flow - Phasic: Augmentation -Normal: Reflux - None. 2. Femoral Vein: 2.1. Compressibility - Fully compressible: Thrombus - None : Flow - Phasic: Augmentation -Normal: Reflux - None. 3. Popliteal Vein: 3.1. Compressibility - Fully compressible: Thrombus - None : Flow - Phasic: Augmentation -Normal: Reflux - None. 4. Posterior Tibial Vein: 4.1. Compressibility - Fully compressible: Thrombus - None: Flow - Phasic: Augmentation -Normal: Reflux - None. 5. Peroneal Vein: 5.1. Compressibility - Fully compressible: Thrombus - None: Flow - Phasic: Augmentation -Normal: Reflux - None. 6. Great Saphenous Vein: 6.1. Compressibility - Fully compressible: Thrombus - None: Flow - Phasic: Augmentation - Normal: Reflux - None. LEFT: 1. Common Femoral Vein: 1.1. Compressibility - Fully compressible: Thrombus - None: Flow - Phasic: Augmentation -Normal: Reflux - None. 2. Femoral Vein: 2.1. Compressibility - Fully compressible: Thrombus - None: Flow - Phasic: Augmentation -Normal: Reflux - None. 3. Popliteal Vein: 3.1. Compressibility - Fully compressible: Thrombus - None : Flow - Phasic: Augmentation -Normal: Reflux - None. 4. Posterior Tibial Vein: 4.1. Compressibility - Fully compressible: Thrombus - None: Flow - Phasic: Augmentation -Normal: Reflux - None. 5. Peroneal Vein: 5.1. Compressibility - Fully compressible: Thrombus - None: Flow - Phasic: Augmentation -Normal: Reflux - None. 6. Great Saphenous Vein: 6.1. Compressibility - Fully compressible: Thrombus - None: Flow - Phasic: Augmentation - Normal: Reflux - None. OTHER FINDINGS: Right: None significant. Left: None significant. IMPRESSION: Right: No evidence of deep or superficial vein thrombosis of the right lower extremity. Normal valve function noted of the right side. Left: No evidence of deep or superficial vein thrombosis of the left lower extremity. Normal valve function noted of the left side.
== END 2016-11-03 19:09 | disposition home or self-care (01) ==
LOC: C.ER 10:58 → C.9E 14:25 → C.3T 14:50
PROVIDERS: ADMIT Hospitalist; ATTEND Hospitalist
DX: I73.9 Peripheral vascular disease, unspecified (principal); E11.22 Type 2 diabetes mellitus with diabetic chronic kidney disease; I12.9 Hypertensive chronic kidney disease with stage 1 through stage 4 chronic kidney disease, or unspecified chronic kidney disease; N18.9 Chronic kidney disease, unspecified; D64.9 Anemia, unspecified; Z87.891 Personal history of nicotine dependence
CPT/HCPCS: 36415; 80048; 80053; 81001; 82948; 83036; 83735; 83970; 84100; 85025; 85610; 85730; 93970; 96361; 96374; 97110; 97112; 97162; 97530; 99285; G0378; G8978; G8979; J2270; J7030; J7040

== ENCOUNTER 2017-04-13 03:34 | Emergency (ER) | payer MEDICARE, MEDICAID ==
[2017-04-13 03:34] VITALS: BMI 28.3
--- NOTE | 2017-04-13 03:55 | C.PDOC ---
History Of Present Illness Patient with a history of diabetic ulcers, presents today with complaints of right foot pain. She was recently evaluated by Dr. Garrett for her ulcer. She states pain is 4/10 and is throbbing and worse at night. She states symptoms have been ongoing for 8 months and she has been taking Levoquin for the past 4 days. She denies any fever or chills. No other complaints. Time Seen by Provider: 04/13/17 03:51 Chief Complaint (Nursing): Lower Extremity Problem/Injury History Per: Patient History/Exam Limitations: no limitations Onset/Duration Of Symptoms: Persistent Current Symptoms Are (Timing): Still Present Pain Scale Rating Of: 4 Recent travel outside of the [place]: No Additional History Per: Patient, Family Past Medical History Reviewed: Historical Data, Nursing Documentation, Vital Signs Vital Signs: Last Vital Signs Temp 98.6 F 04/13/17 05:12 Pulse 92 H 04/13/17 05:12 Resp 16 04/13/17 05:12 BP 171/75 H 04/13/17 05:12 Pulse Ox 97 04/13/17 05:12 - Medical History PMH: Arthritis, Asthma, Gastritis, HTN, Hypercholesterolemia, Osteoporosis, End Stage Renal Disease Denies: Chronic Kidney Disease Surgical History: Coronary Stent (2016) - [facility] Procedures DESTRUCTION OF ASCENDING COLON, ENDO (01/19/16) DESTRUCTION OF DUODENUM, ENDO (01/19/16) DILATION OF RIGHT POSTERIOR TIBIAL ARTERY, PERC APPROACH (04/18/15) EXCISION OF CECUM, ENDO (06/29/15) EXCISION OF STOMACH, ENDO, DIAGN (09/11/16) EXCISION OF TRANSVERSE COLON, ENDO, DIAGN (06/29/15) INSERTION OF INFUSION DEV INTO SUP VENA CAVA, PERC APPROACH (06/29/15) INSPECTION OF LOWER INTESTINAL TRACT, ENDO (09/11/16) INTRODUCE OF OTH THROMBOLYTIC INTO PERIPH ART, PERC APPROACH (04/18/15) PLAIN RADIOGRAPHY OF AORTA, BI LE ART USING L OSM CONTRAST (04/18/15) TRANSFUSE NONAUT FROZEN PLASMA IN PERIPH VEIN, PERC (01/19/16) TRANSFUSE NONAUT PLATELETS IN PERIPH VEIN, PERC (01/19/16) TRANSFUSE NONAUT RED BLOOD CELLS IN PERIPH VEIN, PERC (01/19/16) ULTRASONOGRAPHY OF FEMORAL ARTERY (04/18/15) Family History: States: Unknown Family Hx - Social History Hx Tobacco Use: No Hx Alcohol Use: No Hx Substance Use: No - Immunization History Hx Tetanus Toxoid Vaccination: No Hx Influenza Vaccination: Yes (03/2016) Hx Pneumococcal Vaccination: Yes Review Of Systems Constitutional: Negative for: Fever, Chills Cardiovascular: Negative for: Chest Pain Respiratory: Negative for: Shortness of Breath Gastrointestinal: Negative for: Nausea, Abdominal Pain Musculoskeletal: Positive for: Foot Pain (right foot pain, worse at night) Skin: Positive for: Rash Neurological: Negative for: Weakness Psych: Negative for: Anxiety Physical Exam - Physical Exam Appears: Non-toxic Skin: Warm, Dry Head: Normacephalic Eye(s): bilateral: Other (cataract transplant left eye, blind in right eye) Oral Mucosa: Moist Teeth: Edentulous Neck: Trachea Midline, Supple Chest: Symmetrical Cardiovascular: Rhythm Regular Respiratory: Rhonchi (scattered) Gastrointestinal/Abdominal: Bowel Sounds, Soft, No Tenderness, No Guarding, No Rebound Back: No CVA Tenderness Extremity: Other (poor vasculature skin changes to feet, right greater than left. 1 cm non-healing ulcer on medial aspect of the base of right great toe.) Extremity: Bilateral: Atraumatic Pulses: Left Dorsalis Pedis: Normal, Right Dorsalis Pedis: Normal Neurological/Psych: Oriented x3 Gait: Unable To Assess ED Course And Treatment - Laboratory Results Result Diagrams: 04/13/17 04:53 ECG: Interpreted By Me, Viewed By Me ECG Rhythm: Sinus Rhythm (92), Nonspecific Changes O2 Sat by Pulse Oximetry: 97 Pulse Ox Interpretation: Normal Reevaluation Time: 05:44 Reassessment Condition: Improved Disposition Counseled Patient/Family Regarding: Studies Performed, Diagnosis, Need For Followup - Disposition Referrals: Ladan Nicole MD [Primary Care Provider] - Huseyin Garrett DPM [Staff Provider] - Disposition: HOME/ ROUTINE Disposition Time: 03:55 Condition: FAIR Prescriptions: traMADol [Ultram] 50 mg PO TID PRN #15 tab PRN Reason: Pain, Severe (8-10) Instructions: Diabetic Foot Care (DC), Diabetic Foot Ulcers (ED) Forms: [facility] (Peruvian) Print Language: GERMAN - Clinical Impression Clinical Impression: Right leg pain, Non-healing ulcer of right foot - Scribe Statement The provider has reviewed the documentation as recorded by the Scribe (Jesika Taylor) Provider Attestation: All medical record entries made by the Devin were at my direction and personally dictated by me. I have reviewed the chart and agree that the record accurately reflects my personal performance of the history, physical exam, medical decision making, and the department course for this patient. I have also personally directed, reviewed, and agree with the discharge instructions and disposition.
[2017-04-13 04:56] LABS: BASO # 0.1 K/uL (0.0-0.2); BASO % 1.3 % (0.0-2.0); EOS # 0.4 K/uL (0.0-0.7); EOS % 7.5 % (0.0-4.0); HEMOGLOBIN 11.5 g/dL (11.0-16.0); LYMPH # 1.6 K/uL (1.0-4.3); LYMPH % 29.9 % (20.0-40.0); MEAN CELL VOLUME 97.8 fL (81.0-99.0); MEAN CORPUSCULAR HEMOGLOBIN 32.8 pg (27.0-31.0); MEAN CORPUSCULAR HGB CONC 33.5 g/dL (33.0-37.0); MEAN PLATELET VOLUME 7.9 fL (7.2-11.7); MONO # 0.7 K/uL (0.0-0.8); MONO % 12.5 % (0.0-10.0); NEUT # 2.7 K/uL (1.8-7.0); NEUT % 48.8 % (50.0-75.0); NRBC % 0.1 % (0.0-2.0); RBC 3.52 Mil/uL (3.80-5.20); RED CELL DISTRIBUTION WIDTH 15.3 % (11.5-14.5); WHITE BLOOD COUNT 5.5 K/uL (4.8-10.8)
[2017-04-13 05:13] LABS: VENOUS BLOOD GAS BASE EXCESS -3.9 mmol/L (0.0-2.0); VENOUS BLOOD GAS PCO2 43 mmHg (40-60); VENOUS BLOOD GAS PO2 33 mm/Hg (30-55); VENOUS BLOOD PH 7.32 (7.32-7.43)
[2017-04-13 05:26] LABS: INR 1.1; PROTHROMBIN TIME 11.9 SECONDS (9.7-12.2)
[2017-04-13 05:36] VITALS: PULSE 92; RESP 16
[2017-04-13 05:45] LABS: URINE BACTERIA MANY (<OCC); URINE BILIRUBIN NEGATIVE (NEGATIVE); URINE BLOOD NEGATIVE (NEGATIVE); URINE CLARITY Hazy (Clear); URINE COLOR Yellow (YELLOW); URINE GLUCOSE (UA) NORMAL (Normal); URINE LEUKOCYTE ESTERASE 3+ Leu/uL (Negative); URINE NITRATE NEGATIVE (NEGATIVE); URINE PROTEIN 1+ mg/dL (NEGATIVE); URINE UROBILINOGEN NORMAL mg/dL (0.2-1.0)
[2017-04-13 05:47] LABS: ALBUMIN 3.6 g/dL (3.5-5.0); ALT/SGPT 16 U/L (9-52); AST/SGOT 27 U/L (14-36); BLOOD UREA NITROGEN 17 mg/dL (7-17); CALCIUM 9.3 mg/dl (8.6-10.4); GFR AFRICAN-AMERICAN 27; GFR NON-AFRICAN AMERICAN 23
[2017-04-13 06:19] VITALS: BP 159/79; TEMP 98.2; O2SAT 96
--- NOTE | 2017-04-14 11:59 | CARD ---
APPROVED REPORT EKG Measurement Heart [id number] <Conclusion> Sinus rhythm with short DE Anterior infarct, age undetermined Abnormal ECG
== END 2017-04-13 06:21 | disposition home or self-care (01) ==
LOC: C.ER 03:34 → SUPCPDRO 03:34 → C.ER 06:21
DX: E11.621 Type 2 diabetes mellitus with foot ulcer (principal); L97.519 Non-pressure chronic ulcer of other part of right foot with unspecified severity; M79.604 Pain in right leg